=== PATIENT | male | born 1935 | race Caucasian/White ===

== ENCOUNTER 2017-01-15 00:52 | Inpatient (IN) | payer MEDICARE, OTHER ==
--- NOTE | 2017-01-15 01:11 | PDOC ---
History of Present Illness - General History Source: Patient, Family Exam Limitations: No Limitations - History of Present Illness Initial Comments: 01/15/17 02:13 81 y/o M with a PMHx of IDDM, HTN, HLD, prostate CA, stents presents to the ED with high BP tonight. The son took the patients BP 5 times, the highest being 200/95. Son gave the patient an extra dose of BP medication, but patients BP did not go down. On arrival, patient reports chest heaviness and hematuria. He states he has had hematuria for about 2 weeks but he was traveling so he ignored it. He also reports missing a couple doses of his Plavix the past two days because of travel. Patient reports left eye double vision. Denies dysuria, blood clots in urine. Denies SOB. Denies headache, dizziness. <Nena Stevens - Last Filed: 01/15/17 02:43> <Kristel Loazia - Last Filed: 01/15/17 04:00> - General Stated Complaint: BLOOD PRESSURE PROBLEM Time Seen by Provider: 01/15/17 01:10 Past History <Nena Stevens - Last Filed: 01/15/17 02:43> - Past Medical History Anemia: No Asthma: No Cancer: No Cardiac Disorders: No CVA: No COPD: No CHF: No Dementia: No Diabetes: Yes (IDDM) GI Disorders: Yes (DYSPHAGIA FOR 3 YEARS,CONSTIPATION,GERD) Disorders: No HTN: Yes Hypercholesterolemia: Yes Liver Disease: No Seizures: No Thyroid Disease: No - Surgical History Abdominal Surgery: No Appendectomy: No Cardiac Surgery: No Cholecystectomy: No Lung Surgery: No Neurologic Surgery: No Orthopedic Surgery: No - Suicide/Smoking/Psychosocial Hx Smoking History: Former smoker Have you smoked in the past 12 months: No Hx Alcohol Use: No Drug/Substance Use Hx: No Substance Use Type: None Hx Substance Use Treatment: No <Kristel Loaiza - Last Filed: 01/15/17 04:00> - Past Medical History Allergies/Adverse Reactions: Allergies Allergy/AdvReac Type Severity Reaction Status Date / Time No Known Drug Allergies Allergy Verified 01/15/17 01:38 Home Medications: Ambulatory Orders Gabapentin 100 mg PO BID 07/05/14 Sitagliptin Phosphate [Januvia] 100 mg PO DAILY 07/05/14 Insulin Lispro Protamin/Lispro [Humalog Mix 50-50 Vial] 0 unit SQ DAILY #0 03/22 Aspirin [ASA -] 81 mg PO DAILY 03/06/16 Carbidopa/Levodopa [Rytary ER 61.25 mg-245 mg Cap] 1 each PO DAILY 03/06/16 Clopidogrel Bisulfate [Plavix -] 75 mg PO DAILY 03/06/16 Docusate Sodium [Stool Softener] 50 mg PO TID 03/06/16 Ergocalciferol (Vitamin D2) [Vitamin D2] 2,000 unit PO DAILY 03/06/16 Esomeprazole Magnesium [Nexium 24Hr] 40 mg PO DAILY 03/06/16 Linaclotide [Linzess] 145 mcg PO DAILY 03/06/16 Lisinopril 5 mg PO DAILY 03/06/16 Methylcellulose [Fiber Therapy] 500 mg PO DAILY 03/06/16 Mirabegron [Myrbetriq] 50 mg PO DAILY 03/06/16 Rosuvastatin Calcium [Crestor] 5 mg PO DAILY 03/06/16 Review of Systems - Review of Systems Able to Perform ROS?: Yes Comments:: 01/15/17 02:13 GENERAL/CONSTITUTIONAL: No fever or chills. No weakness. HEAD, EYES, EARS, NOSE AND THROAT: (+) left eye blurry vision. No ear pain or discharge. No sore throat. CARDIOVASCULAR: (+) chest heaviness, high BP. No shortness of breath. RESPIRATORY: No cough, wheezing, or hemoptysis. GASTROINTESTINAL: No nausea, vomiting, diarrhea or constipation. GENITOURINARY: (+) hematuria. No dysuria, frequency. MUSCULOSKELETAL: No joint or muscle swelling or pain. No neck or back pain. SKIN: No rash NEUROLOGIC: No headache, vertigo, loss of consciousness, or change in strength/ sensation. ENDOCRINE: No increased thirst. No abnormal weight change. HEMATOLOGIC/LYMPHATIC: No anemia, easy bleeding, or history of blood clots. ALLERGIC/IMMUNOLOGIC: No hives or skin allergy. <Nena Stevens - Last Filed: 01/15/17 02:43> *Physical Exam - Vital Signs Last Vital Signs Temp Pulse Resp BP Pulse Ox 98.1 F 82 18 153/78 99 01/15/17 01:33 01/15/17 01:33 01/15/17 01:33 01/15/17 01:33 01/15/17 01:33 - Physical Exam Comments: 01/15/17 02:15 GENERAL: Awake, alert, and fully oriented, in no acute distress HEAD: No signs of trauma EYES: PERRLA, EOMI, sclera anicteric, conjunctiva clear ENT: Auricles normal inspection, hearing grossly normal, nares patent, oropharynx clear without exudates. Moist mucosa NECK: Normal ROM, supple, no lymphadenopathy, JVD, or masses LUNGS: Breath sounds equal, clear to auscultation bilaterally. No wheezes, and no crackles HEART: Regular rate and rhythm, normal S1 and S2, no murmurs, rubs or gallops ABDOMEN: Suprapubic tenderness, palpable bladder beneath umbilicus. normoactive bowel sounds. No guarding, no rebound. EXTREMITIES: Bilateral lower extremity edema. Normal range of motion. No clubbing or cyanosis. No cords, erythema, or tenderness NEUROLOGICAL: Cranial nerves II through XII grossly intact. Normal speech, normal gait SKIN: Warm, Dry, normal turgor, no rashes or lesions noted. <Nena Stevens - Last Filed: 01/15/17 02:43> Heart Score/ECG Review - ECG Intrepretation Comment:: 01/15/17 02:25 sinus at 76, anterior q waves that are age indeterminate and unchanged from prior, no acute st/t wave findings <Kristel Loaiza - Last Filed: 01/15/17 04:00> ED Treatment Course - LABORATORY CBC & Chemistry Diagram: 01/15/17 02:03 01/15/17 02:03 <Nena Stevens - Last Filed: 01/15/17 02:43> - LABORATORY CBC & Chemistry Diagram: 01/15/17 02:03 01/15/17 02:30 <Kristel Loaiza - Last Filed: 01/15/17 04:00> Medical Decision Making - Medical Decision Making 01/15/17 02:17 a/p: 81yo male with HTN at home, cp, hematuria -labs, ua, cxr, trop, ekg pt with htn at home, took extra dose of lisinopril hematuria with hx of prostate sx for prostate ca in past, 2 weeks hematuria chest pressure - hx of stents, not compliant w asa/plavix pt will most likely need to be admitted for further eval. 01/15/17 03:57 pt resting comfortably. discussed lab results with the patient. pt with CAD risk factors. Will need to stay for further eval of cp. pt willing to stay for further eval case discussed with Dr. Trinidad - accepts pt to service under obs. <Kristel Loaiza - Last Filed: 01/15/17 04:00> *DC/Admit/Observation/Transfer - Attestations Scribe Attestion: 01/15/17 02:16 Documentation prepared by Nena Stevens, acting as medical device engineer for Kristel Loaiza DO. <Nena Stevens - Last Filed: 01/15/17 02:43> - Discharge Dispostion Admit: Yes - Attestations Physician Attestion: 01/15/17 04:00 I, Dr. Kristel Loaiza DO, attest that this document has been prepared under my direction and personally reviewed by me in its entirety. I further attest, that it accurately reflects all work, treatment, procedures and medical decision -making performed by me. <Kristel Loaiza - Last Filed: 01/15/17 04:00> Diagnosis at time of Disposition: Chest pain, Hypertension, Hematuria, Diabetes - Discharge Dispostion Condition at time of disposition: Fair - Referrals Referrals: Samuel Moyer MD [Primary Care Provider] -
[2017-01-15 01:38] VITALS: BMI 30.3
[2017-01-15 02:15] LABS: EOSINOPHIL 5.2 % (0-4.5); MCHC 33.8 g/dl (32.0-35.9); MEAN CELL VOLUME 91.7 fl (80-96); MEAN PLT VOLUME 10.8 fl (7.5-11.1); NEUTROPHILS 55.7 % (42.8-82.8); PLATELET COUNT 229 K/MM3 (134-434); RDW 14.6 % (11.9-15.9); URINE APPEARANCE CLEAR; URINE BILIRUBIN NEGATIVE (NEGATIVE); URINE BLOOD 1+ (NEGATIVE); URINE COLOR YELLOW; URINE GLUCOSE (UA) 3+ (NEGATIVE); URINE KETONE NEGATIVE (NEGATIVE); URINE NITRITE NEGATIVE (NEGATIVE); URINE UROBILINOGEN NEGATIVE mg/dL (0.2-1.0); WHITE BLOOD COUNT 6.7 K/mm3 (4.0-10.0)
[2017-01-15 02:19] LABS: URINE PROTEIN 1+ (NEGATIVE)
[2017-01-15 02:21] LABS: URINE RBC <1 /hpf (0-3); URINE WBC 1 /hpf (3-5)
[2017-01-15 03:06] LABS: ACTIVATED PTT 32.2 SECONDS (26.9-34.4)
[2017-01-15 03:07] LABS: INR 1.27 (0.82-1.09)
[2017-01-15 03:12] LABS: ALBUMIN 2.7 g/dl (3.4-5.0); ANION GAP 9 (8-16); BILIRUBIN,TOTAL 1.3 mg/dL (0.2-1.0); CALCIUM 8.7 mg/dL (8.5-10.1); CO2 24 mmol/L (21-32); CREATININE 1.8 mg/dL (0.7-1.3); SGPT/ALT 42 U/L (12-78); TOT PROT 8.4 g/dl (6.4-8.2)
[2017-01-15 03:14] LABS: ALK PHOS 402 U/L (45-117); CPK 311 IU/L (39-308); TROPONIN I < 0.02 ng/ml (0.00-0.05)
[2017-01-15 03:25] LABS: SGOT/AST 105 U/L (15-37)
[2017-01-15 03:26] LABS: GLUCOSE,RANDOM 376 mg/dL (74-106)
[2017-01-15] MEDS ORDERED: LEVOFLOXACIN 750 MG IVPB 150 ML IVPB ONE ×2 (03:39→04:55)
[2017-01-15] MEDS ORDERED: ASPIRIN 81 MG CHEWABLE TABLETS PO ONE (03:41)
[2017-01-15] MEDS ORDERED: INSULIN REGULAR HUMAN 100 UNITS/ML *VIAL SQ ONE (03:57)
[2017-01-15] MEDS ORDERED: ASPIRIN 81 MG CHEWABLE TABLETS ONE ×2 (04:55→11:58)
[2017-01-15] MEDS ORDERED: INSULIN REGULAR HUMAN 100 UNITS/ML *VIAL ONE (04:55)
[2017-01-15] MEDS ORDERED: ONDANSETRON *ODT* 4 MG TABLET SL PRN (07:15)
[2017-01-15] MEDS ORDERED: DEXTROSE 5%-NORMAL SALINE 1,000 ML IV SCH (07:30)
[2017-01-15 09:02] LABS: CHOLESTEROL 253 mg/dL (50-200)
[2017-01-15 09:03] LABS: CPK 286 IU/L (39-308); TROPONIN I < 0.02 ng/ml (0.00-0.05)
[2017-01-15 09:25] LABS: URINE LEUK ESTERASE Negative (NEGATIVE)
[2017-01-15] MEDS ORDERED: DEXTROSE 5% IVPB ONE (10:00)
[2017-01-15] MEDS ORDERED: DIPYRIDAMOLE STRESS TEST IVPB ONE (10:00)
[2017-01-15] MEDS ORDERED: WATER IVPB ONE (10:00)
--- NOTE | 2017-01-15 10:12 | HP ---
Admitting History and Physical - Primary Care Physician PCP: Ko Seth - Admission Chief Complaint: HTN History of Present Illness: 81 y/o M with a PMHx of IDDM, HTN, HLD, prostate CA, stents presents to the ED with high BP tonight. The son took the patients BP 5 times, the highest being 200/95. Son gave the patient an extra dose of BP medication, but patients BP did not go down. On arrival, patient reports chest heaviness and hematuria. He states he has had hematuria for about 2 weeks but he was traveling so he ignored it. He also reports missing a couple doses of his Plavix the past two days because of travel. Patient reports left eye double vision. Denies dysuria, blood clots in urine. Denies SOB. Denies headache, dizziness. 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 Cardiovascular: Yes: CAD, HTN, Hyperlipdemia Gastrointestinal: Yes: Constipation Renal/: Yes: Other - Smoking History Smoking history: Former smoker Have you smoked in the past 12 months: No - Alcohol/Substance Use Hx Alcohol Use: No Home Medications - Allergies Allergies/Adverse Reactions: Allergies Allergy/AdvReac Type Severity Reaction Status Date / Time No Known Drug Allergies Allergy Verified 01/15/17 01:38 - Home Medications Home Medications: Ambulatory Orders Gabapentin 100 mg PO BID 07/05/14 Sitagliptin Phosphate [Januvia] 100 mg PO DAILY 07/05/14 Insulin Lispro Protamin/Lispro [Humalog Mix 50-50 Vial] 0 unit SQ DAILY #0 03/22 Aspirin [ASA -] 81 mg PO DAILY 03/06/16 Carbidopa/Levodopa [Rytary ER 61.25 mg-245 mg Cap] 1 each PO DAILY 03/06/16 Clopidogrel Bisulfate [Plavix -] 75 mg PO DAILY 03/06/16 Docusate Sodium [Stool Softener] 50 mg PO TID 03/06/16 Ergocalciferol (Vitamin D2) [Vitamin D2] 2,000 unit PO DAILY 03/06/16 Esomeprazole Magnesium [Nexium 24Hr] 40 mg PO DAILY 03/06/16 Linaclotide [Linzess] 145 mcg PO DAILY 03/06/16 Lisinopril 5 mg PO DAILY 03/06/16 Methylcellulose [Fiber Therapy] 500 mg PO DAILY 03/06/16 Mirabegron [Myrbetriq] 50 mg PO DAILY 03/06/16 Rosuvastatin Calcium [Crestor] 5 mg PO DAILY 03/06/16 Review of Systems - Review of Systems Constitutional: reports: No Symptoms Eyes: reports: No Symptoms HENT: reports: No Symptoms Neck: reports: No Symptoms Cardiovascular: reports: Chest Pain, Shortness of Breath Respiratory: reports: SOB Gastrointestinal: reports: No Symptoms Genitourinary: reports: No Symptoms Breasts: reports: No Symptoms Reported Musculoskeletal: reports: No Symptoms Integumentary: reports: No Symptoms Neurological: reports: Dizziness, Unsteady Gait, Weakness Endocrine: reports: No Symptoms Hematology/Lymphatic: reports: No Symptoms Psychiatric: reports: No Symptoms Pain Intensity: 0 Physical Examination Vital Signs: Vital Signs Temperature 98.1 F 01/15/17 01:33 Pulse Rate 82 01/15/17 01:33 Respiratory Rate 18 01/15/17 01:33 Blood Pressure 153/78 01/15/17 01:33 O2 Sat by Pulse Oximetry (%) 99 01/15/17 01:33 Constitutional: Yes: Well Nourished, No Distress, Calm Cardiovascular: Yes: Regular Rate and Rhythm Respiratory: Yes: Regular Gastrointestinal: Yes: Normal Bowel Sounds, Abdomen, Obese Musculoskeletal: Yes: Muscle Weakness Edema: No Peripheral Pulses WNL: Yes Neurological: Yes: Alert Psychiatric: Yes: Alert Imaging - Results Chest X-ray: Report Reviewed Cat Scan: Report Reviewed Ultrasound: Report Reviewed Problem List - Problems (1) JOSSELYN (acute kidney injury) Assessment/Plan: -renal consult -IV fluids -avoid nephrotoxic drugs -drugs to be dosed according to CrCl -decrease Januvia to 50 mg po daily Code(s): N17.9 - ACUTE KIDNEY FAILURE, UNSPECIFIED (2) Chest pain Assessment/Plan: -cardiology consult -EKG -stress test positive for ischemia -echo -telemetry Code(s): R07.9 - CHEST PAIN, UNSPECIFIED (3) Elevated liver enzymes Assessment/Plan: -patient aymptomatic -seen by GI consult -Crestor changed to Q48h -Zetia 10 mg po daily -Lovaza 2g BID -U/S abdomen hepatic steatosis -monitor labs in AM Code(s): R74.8 - ABNORMAL LEVELS OF OTHER SERUM ENZYMES (4) Hematuria Assessment/Plan: -Urology consult -UA/UC Code(s): R31.9 - HEMATURIA, UNSPECIFIED (5) Hypertension Assessment/Plan: -managed by cardiology -better controlled -on Fernando and B-gladys Code(s): I10 - ESSENTIAL (PRIMARY) HYPERTENSION (6) CAD (coronary artery disease) Assessment/Plan: -on asa/plavix -statin -BB/fernando Code(s): I25.10 - ATHSCL HEART DISEASE OF [place] CORONARY ARTERY W/O ANG PCTRS (7) Diabetes mellitus, insulin dependent (IDDM), uncontrolled Assessment/Plan: -uncontrolled with HgA1c at 9.6 -endocrinology consult -BGM AC HS -Insulin sliding scale -Januvia decreased to 50 mg because of creatinine clearance Code(s): E10.65 - TYPE 1 DIABETES MELLITUS WITH HYPERGLYCEMIA (8) Parkinson disease Assessment/Plan: -Chronic -on Rytary- may use his own medication -to be seen by Neurology -unsteady gait -Physical therapy Code(s): G20 - PARKINSON'S DISEASE Assessment/Plan see problem list
[2017-01-15] MEDS ORDERED: LISINOPRIL 5 MG TABLET (FP) ONE (11:58)
[2017-01-15] MEDS ORDERED: PANTOPRAZOLE 40 MG TABLET (FP) ONE (11:58)
[2017-01-15] MEDS ORDERED: CLOPIDOGREL BISULFATE 75 MG TABLET (FP) ONE (11:59)
[2017-01-15] MEDS: PANTOPRAZOLE 40 MG TABLET (FP) PO SCH (12:07)
[2017-01-15] MEDS: ASPIRIN COATED 81 MG TABLET.EC PO SCH (12:07)
[2017-01-15] MEDS: LISINOPRIL 5 MG TABLET (FP) PO SCH (12:07)
[2017-01-15] MEDS: CLOPIDOGREL BISULFATE 75 MG TABLET (FP) PO SCH (12:07)
[2017-01-15] MEDS: INSULIN SLIDING SCALE (NOVOLOG) 1 VIAL SQ SCH ×3 (12:13→22:14)
--- NOTE | 2017-01-15 14:53 | CON.CARD ---
Consult Consult Specialty:: Cardiology Referred by:: Amos Reason for Consultation:: chest pain - History of Present Illness Chief Complaint: Chest pain History of Present Illness: 81 y/o M with a PMHx of IDDM, HTN, HLD, prostate CA, CAD with h/o stents in 2005 who presents to the ED with high BP tonight, decreased in vision in left eye and chest pain. Patient reports he was home when felt like he could not see out of his left eye and called his son to come over. Also noted to have left chest pressure which was non-radiating. No sob or palpitations. Son reports bp was persistently high at home and gave him an extra dose of lisinopril and started to improve. No chest pain at this time. +hematuria which is of concern to the patient. - History Source History Provided By: Patient, Family Member, Medical Record - Past Medical History Cardio/Vascular: Yes: HTN Renal/: Yes: Other - Alcohol/Substance Use Hx Alcohol Use: No - Smoking History Smoking history: Former smoker Have you smoked in the past 12 months: No Home Medications - Allergies Allergies/Adverse Reactions: Allergies Allergy/AdvReac Type Severity Reaction Status Date / Time No Known Drug Allergies Allergy Verified 01/15/17 01:38 - Home Medications Home Medications: Ambulatory Orders Gabapentin 100 mg PO BID 07/05/14 Sitagliptin Phosphate [Januvia] 100 mg PO DAILY 07/05/14 Insulin Lispro Protamin/Lispro [Humalog Mix 50-50 Vial] 0 unit SQ DAILY #0 03/22 Aspirin [ASA -] 81 mg PO DAILY 03/06/16 Carbidopa/Levodopa [Rytary ER 61.25 mg-245 mg Cap] 1 each PO DAILY 03/06/16 Clopidogrel Bisulfate [Plavix -] 75 mg PO DAILY 03/06/16 Docusate Sodium [Stool Softener] 50 mg PO TID 03/06/16 Ergocalciferol (Vitamin D2) [Vitamin D2] 2,000 unit PO DAILY 03/06/16 Esomeprazole Magnesium [Nexium 24Hr] 40 mg PO DAILY 03/06/16 Linaclotide [Linzess] 145 mcg PO DAILY 03/06/16 Lisinopril 5 mg PO DAILY 03/06/16 Methylcellulose [Fiber Therapy] 500 mg PO DAILY 03/06/16 Mirabegron [Myrbetriq] 50 mg PO DAILY 03/06/16 Rosuvastatin Calcium [Crestor] 5 mg PO DAILY 03/06/16 Vital Signs: Vital Signs Temperature 98.1 F 01/15/17 01:33 Pulse Rate 85 01/15/17 13:34 Respiratory Rate 18 01/15/17 12:08 Blood Pressure 152/76 01/15/17 13:34 O2 Sat by Pulse Oximetry (%) 97 01/15/17 12:08 Constitutional: Yes: No Distress Neck: Yes: Supple Respiratory: Yes: CTA Bilaterally Gastrointestinal: Yes: Normal Bowel Sounds, Soft Cardiovascular: Yes: Regular Rate and Rhythm JVD: No Carotid Bruit: No Heart Sounds: Yes: S1, S2 Murmur: No: Systolic Murmur Edema: LLE: Trace, RLE: Trace - Other Data Labs, Other Data: INR, PTT INR 1.27 (0.82-1.09) H 01/15/17 02:30 Troponin, BNP 01/15/17 08:12 Troponin I < 0.02 Troponin, BNP 01/15/17 08:12 Troponin I < 0.02 Imaging - Results Chest X-ray: Report Reviewed EKG: Image Reviewed Problem List - Problems (1) Chest pain Code(s): R07.9 - CHEST PAIN, UNSPECIFIED (2) CAD (coronary artery disease) Code(s): I25.10 - ATHSCL HEART DISEASE OF [place] CORONARY ARTERY W/O ANG PCTRS Assessment/Plan 81 y/o M with a PMHx of IDDM, HTN, HLD, prostate CA, CAD with h/o stents in 2005 who presents to the ED with high BP tonight, decreased in vision in left eye and chest pain. Patient reports he was home when felt like he could not see out of his left eye and called his son to come over. Also noted to have left chest pressure which was non-radiating. No sob or palpitations. Son reports bp was persistently high at home and gave him an extra dose of lisinopril and started to improve. No chest pain at this time. +hematuria which is of concern to the patient. 1) Chest pain/CAD -No acute EKG changes and troponins negative at this time Admitted to telemetry Trend CE's -On home aspirin/plavix Trend lfts and if no contraindications and not uptrending than restart statin -Plan for echocardiogram Patient went for Nuclear Stress Test today and will f/u results 2) HTN -BP seems to have improved on lisinopril -Given known CAD would benefit from beta gladys if no contraindication. If no contraindication and if HR allows than start toprol xl. If patient is unable to tolerate BBlocker and still needs an additional agent than would start calcium channel gladys Check orthostatics given h/o parkinson's 3) Neuro -CT head no acute m/s/b BP control F/u with primary team whether or not any further neuro work up indicated
[2017-01-15] MEDS: GABAPENTIN 100 MG CAPSULE (FP) PO SCH ×2 (15:30→22:14)
--- NOTE | 2017-01-15 16:17 | CONSULT ---
Consult Consult Specialty:: Nephrology Reason for Consultation:: JOSSELYN - History of Present Illness Chief Complaint: chest pressure History of Present Illness: Pt is an 81 year old male with pmhx of DM, HTN, chol and prostate cancer who presents to the ER with elevated blood pressure and chest discomfort. He was found to have elevated creatinine and I was called to evaluate him. He currently denies chest pain. His blood pressure is improving. He denies history of CKD. He also complains of hematuria for the last few weeks. He denies nsaid use. He occasionally gets lower extremity edema. - History Source History Provided By: Patient, Medical Record - Past Medical History Cardio/Vascular: Yes: HTN Renal/: Yes: Hematuria Endocrine: Yes: Diabetes Mellitus - Alcohol/Substance Use Hx Alcohol Use: No - Smoking History Smoking history: Former smoker Have you smoked in the past 12 months: No Home Medications - Allergies Allergies/Adverse Reactions: Allergies Allergy/AdvReac Type Severity Reaction Status Date / Time No Known Drug Allergies Allergy Verified 01/15/17 01:38 - Home Medications Home Medications: Ambulatory Orders Gabapentin 100 mg PO BID 07/05/14 Sitagliptin Phosphate [Januvia] 100 mg PO DAILY 07/05/14 Insulin Lispro Protamin/Lispro [Humalog Mix 50-50 Vial] 0 unit SQ DAILY #0 03/22 Aspirin [ASA -] 81 mg PO DAILY 03/06/16 Carbidopa/Levodopa [Rytary ER 61.25 mg-245 mg Cap] 1 each PO DAILY 03/06/16 Clopidogrel Bisulfate [Plavix -] 75 mg PO DAILY 03/06/16 Docusate Sodium [Stool Softener] 50 mg PO TID 03/06/16 Ergocalciferol (Vitamin D2) [Vitamin D2] 2,000 unit PO DAILY 03/06/16 Esomeprazole Magnesium [Nexium 24Hr] 40 mg PO DAILY 03/06/16 Linaclotide [Linzess] 145 mcg PO DAILY 03/06/16 Lisinopril 5 mg PO DAILY 03/06/16 Methylcellulose [Fiber Therapy] 500 mg PO DAILY 03/06/16 Mirabegron [Myrbetriq] 50 mg PO DAILY 03/06/16 Rosuvastatin Calcium [Crestor] 5 mg PO DAILY 03/06/16 Family Disease History - Family Disease History Family History: Denies Review of Systems - Review of Systems Constitutional: reports: No Symptoms Eyes: reports: No Symptoms HENT: reports: No Symptoms Neck: reports: No Symptoms Cardiovascular: reports: Chest Pain Respiratory: denies: SOB Gastrointestinal: reports: No Symptoms Genitourinary: reports: Hematuria Musculoskeletal: reports: No Symptoms Integumentary: reports: No Symptoms Neurological: reports: No Symptoms Endocrine: reports: No Symptoms Hematology/Lymphatic: reports: No Symptoms Psychiatric: reports: No Symptoms Physical Exam Vital Signs: Vital Signs Temperature 98.2 F 01/15/17 15:12 Pulse Rate 82 01/15/17 15:12 Respiratory Rate 14 01/15/17 15:12 Blood Pressure 152/72 01/15/17 15:12 O2 Sat by Pulse Oximetry (%) 97 01/15/17 15:12 Constitutional: Yes: Calm Eyes: Yes: Conjunctiva Clear HENT: Yes: Atraumatic Cardiovascular: Yes: S1, S2 Respiratory: Yes: CTA Bilaterally Gastrointestinal: Yes: Soft Renal/: Yes: WNL Musculoskeletal: Yes: WNL Edema: Yes Edema: LLE: Trace, RLE: Trace Neurological: Yes: Oriented Psychiatric: Yes: Oriented Labs: Selected Entries 01/15/17 01/15/17 01/15/17 12:08 13:34 15:12 Blood Pressure 164/92 152/76 152/72 Laboratory Tests 01/15/17 01/15/17 01/15/17 02:03 02:03 02:30 WBC 6.7 D Hgb 14.4 D Sodium 136 Potassium 4.6 Chloride 103 Carbon Dioxide 24 Anion Gap 9 BUN 30 H D Creatinine 1.8 H D Random Glucose 376 H* Urine Color Yellow Urine Appearance Clear Urine pH 5.0 Ur Specific [place] 1.020 Urine Protein 1+ H Urine Glucose (UA) 3+ H Urine Ketones Negative Urine Blood 1+ H Urine Nitrite Negative Urine Bilirubin Negative Urine Urobilinogen Negative Ur Leukocyte Esterase Negative Urine RBC <1 Urine WBC 1 Imaging - Results Chest X-ray: Report Reviewed Cat Scan: Report Reviewed Problem List - Problems (1) Chest pain Code(s): R07.9 - CHEST PAIN, UNSPECIFIED (2) Diabetes Code(s): E11.9 - TYPE 2 DIABETES MELLITUS WITHOUT COMPLICATIONS (3) Hematuria Code(s): R31.9 - HEMATURIA, UNSPECIFIED (4) Hypertension Code(s): I10 - ESSENTIAL (PRIMARY) HYPERTENSION (5) CAD (coronary artery disease) Code(s): I25.10 - ATHSCL HEART DISEASE OF [place] CORONARY ARTERY W/O ANG PCTRS (6) Diabetes mellitus, insulin dependent (IDDM), uncontrolled Code(s): E10.65 - TYPE 1 DIABETES MELLITUS WITH HYPERGLYCEMIA (7) JOSSELYN (acute kidney injury) Code(s): N17.9 - ACUTE KIDNEY FAILURE, UNSPECIFIED Assessment/Plan Current Medications Generic Name Dose Route Start Last Admin Trade Name Freq PRN Reason Stop Dose Admin Aspirin 81 mg 01/15/17 10:00 01/15/17 12:07 Ecotrin - PO 81 mg DAILY JALIL Administration Clopidogrel Bisulfate 75 mg 01/15/17 10:00 01/15/17 12:07 Plavix - PO 75 mg DAILY JALIL Administration Gabapentin 100 mg 01/15/17 14:00 Neurontin - PO TID JALIL Dextrose/Sodium Chloride 1,000 mls @ 75 mls/hr 01/15/17 07:30 01/15/17 07:00 D5-Ns - IV 75 mls/hr ASDIR JALIL Administration Insulin Aspart 1 vial 01/15/17 11:00 01/15/17 12:13 Novolog Vial Sliding Scale - SQ 8 units ACHS JALIL Administration Protocol Lisinopril 5 mg 01/15/17 10:00 01/15/17 12:07 Prinivil PO 5 mg DAILY JALIL Administration Ondansetron HCl 4 mg 01/15/17 07:15 Zofran Odt - SL Q6H PRN NAUSEA AND/OR VOMITING Pantoprazole Sodium 40 mg 01/15/17 10:00 01/15/17 12:07 Protonix - PO 40 mg DAILY JALIL Administration Rosuvastatin Calcium 5 mg 01/15/17 22:00 Crestor - PO HS JALIL Sitagliptin Phosphate 100 mg 01/16/17 07:00 Januvia - PO DAILY@0700 JALIL Impression 1. JOSSELYN 2. HTN 3. chest pain 4. DM 5. hematuria Plan - change fluids to 1/2 and decrease rate - repeat bmp - check ua - abd ultrasound reviewed - check bladder ultrasound - urology eval for hematuria - will need to obtain outpt labs - will follow Dr Beckford
[2017-01-15] MEDS ORDERED: SODIUM CHLORIDE 0.45% 1,000 ML IV SCH (16:30)
[2017-01-15] MEDS ORDERED: METOPROLOL SUCCINATE 25 MG TAB.SR.24H (FP) PO SCH (18:15)
--- NOTE | 2017-01-15 19:01 | CON.GI ---
Consult Consult Specialty:: gastroenterology Referred by:: Dr Trinidad - History of Present Illness History of Present Illness: 81 y/o M with a PMHx of IDDM, HTN, HLD, prostate CA, CAD with h/o stents in 2005 who presents to the ED with high BP tonight, decreased in vision in left eye and chest pain. Patient reports he was home when felt like he could not see out of his left eye and called his son to come over. Also noted to have left chest pressure which was non-radiating. No sob or palpitations. Son reports bp was persistently high at home and gave him an extra dose of lisinopril and started to improve. The patient is on statins as an outpatient. He was asked to be seen because of elevated liver enzymes. He denies alcohol use. Patient triglycerides and cholesterol are elevated. - Past Medical History Cardio/Vascular: Yes: HTN Renal/: Yes: Hematuria Endocrine: Yes: Diabetes Mellitus - Alcohol/Substance Use Hx Alcohol Use: No - Smoking History Smoking history: Former smoker Have you smoked in the past 12 months: No Home Medications - Allergies Allergies/Adverse Reactions: Allergies Allergy/AdvReac Type Severity Reaction Status Date / Time No Known Drug Allergies Allergy Verified 01/15/17 01:38 - Home Medications Home Medications: Ambulatory Orders Gabapentin 100 mg PO BID 07/05/14 Sitagliptin Phosphate [Januvia] 100 mg PO DAILY 07/05/14 Insulin Lispro Protamin/Lispro [Humalog Mix 50-50 Vial] 0 unit SQ DAILY #0 03/22 Aspirin [ASA -] 81 mg PO DAILY 03/06/16 Carbidopa/Levodopa [Rytary ER 61.25 mg-245 mg Cap] 1 each PO DAILY 03/06/16 Clopidogrel Bisulfate [Plavix -] 75 mg PO DAILY 03/06/16 Docusate Sodium [Stool Softener] 50 mg PO TID 03/06/16 Ergocalciferol (Vitamin D2) [Vitamin D2] 2,000 unit PO DAILY 03/06/16 Esomeprazole Magnesium [Nexium 24Hr] 40 mg PO DAILY 03/06/16 Linaclotide [Linzess] 145 mcg PO DAILY 03/06/16 Lisinopril 5 mg PO DAILY 03/06/16 Methylcellulose [Fiber Therapy] 500 mg PO DAILY 03/06/16 Mirabegron [Myrbetriq] 50 mg PO DAILY 03/06/16 Rosuvastatin Calcium [Crestor] 5 mg PO DAILY 03/06/16 Review of Systems - Review of Systems Constitutional: denies: No Symptoms, Chills, Diaphoresis, Fever, Lethargy, Loss of Appetite, Malaise, Night Sweats, Unintentional Wgt. Loss, Weakness, Other HENT: denies: No Symptoms, Difficult Swallowing, Ear Discharge, Ear Pain, Epistaxis, Gingival Bleeding, Hearing Loss, Mouth Swelling, Nasal Congestion, Ocular Prosthesis, Throat Pain, Toothache, Ringing in Ears, Other Cardiovascular: reports: Chest Pain Gastrointestinal: denies: No Symptoms, Abdominal Pain, Bloating, Constipation, Diarrhea, Dysphagia, Indigestion, Melena, Nausea, Rectal Bleeding, Vomiting, Vomiting Blood, Other Physical Exam-GI Vital Signs: Vital Signs Temperature 98.2 F 01/15/17 15:12 Pulse Rate 82 01/15/17 15:12 Respiratory Rate 14 01/15/17 15:12 Blood Pressure 152/72 01/15/17 15:12 O2 Sat by Pulse Oximetry (%) 97 01/15/17 15:12 Constitutional: Yes: Obese Eyes: Yes: Conjunctiva Clear HENT: Yes: Atraumatic Neck: Yes: Trachea Midline, Thyromegaly Respiratory: Yes: CTA Bilaterally ...Palpate: Yes: Soft. No: Firm/Rigid, Guarding, Hepatomegaly, Mass, Pulsatile Mass, Tenderness Labs: INR, PTT INR 1.27 (0.82-1.09) H 01/15/17 02:30 CBCD WBC 6.7 K/mm3 (4.0-10.0) D 01/15/17 02:03 RBC 4.64 M/mm3 (4.00-5.60) 01/15/17 02:03 Hgb 14.4 GM/dL (11.7-16.9) D 01/15/17 02:03 Hct 42.5 % (35.4-49) 01/15/17 02:03 MCV 91.7 fl (80-96) 01/15/17 02:03 MCHC 33.8 g/dl (32.0-35.9) 01/15/17 02:03 RDW 14.6 % (11.9-15.9) D 01/15/17 02:03 Plt Count 229 K/MM3 (134-434) D 01/15/17 02:03 MPV 10.8 fl (7.5-11.1) D 01/15/17 02:03 CMP Sodium 136 mmol/L (136-145) 01/15/17 02:30 Potassium 4.6 mmol/L (3.5-5.1) 01/15/17 02:30 Chloride 103 mmol/L (98-107) 01/15/17 02:30 Carbon Dioxide 24 mmol/L (21-32) 01/15/17 02:30 Anion Gap 9 (8-16) 01/15/17 02:30 BUN 30 mg/dL (7-18) H D 01/15/17 02:30 Creatinine 1.8 mg/dL (0.7-1.3) H D 01/15/17 02:30 Creat Clearance w eGFR 36.21 (>60) 01/15/17 02:30 Calcium 8.7 mg/dL (8.5-10.1) 01/15/17 02:30 Total Bilirubin 1.3 mg/dL (0.2-1.0) H D 01/15/17 02:30 AST 105 U/L (15-37) H D 01/15/17 02:30 ALT 42 U/L (12-78) D 01/15/17 02:30 Alkaline Phosphatase 402 U/L (45-117) H D 01/15/17 02:30 Total Protein 8.4 g/dl (6.4-8.2) H 01/15/17 02:30 Albumin 2.7 g/dl (3.4-5.0) L 01/15/17 02:30 Problem List - Problems (1) Elevated liver enzymes Assessment/Plan: r/o secondary to drug toxicity R> consider to decrese Crestor to every other day consider to start Zetia 10mg daily Lovaza 2 grams daily abdominal ultrasound hepatitis profile Code(s): R74.8 - ABNORMAL LEVELS OF OTHER SERUM ENZYMES
[2017-01-15 20:45] LABS: URINE APPEARANCE CLEAR; URINE BILIRUBIN NEGATIVE (NEGATIVE); URINE BLOOD NEGATIVE (NEGATIVE); URINE COLOR YELLOW; URINE GLUCOSE (UA) 3+ (NEGATIVE); URINE KETONE NEGATIVE (NEGATIVE); URINE NITRITE NEGATIVE (NEGATIVE); URINE PROTEIN NEGATIVE (NEGATIVE); URINE UROBILINOGEN NEGATIVE mg/dL (0.2-1.0)
[2017-01-15] MEDS ORDERED: MAGNESIUM HYDROX 2400MG/30ML ORAL SUSPENSION 30 ML CUP PO PRN (20:47)
[2017-01-15 20:59] LABS: URINE CREATININE 80.9 mg/dL (20-370)
[2017-01-15] MEDS ORDERED: ROSUVASTATIN CA 20 MG TABLET (FP) PO SCH ×2 (21:00→22:00)
[2017-01-15] MEDS ORDERED: ROSUVASTATIN CA 5 MG TABLET (FP) PO SCH (22:00)
--- NOTE | 2017-01-15 22:12 | EKG ---
Test Reason : Blood Pressure : / mmHG Vent. Rate : 076 BPM Atrial Rate : 076 BPM P-R Int : 186 ms QRS Dur : 092 ms QT Int : 410 ms P-R-T Axes : 034 -09 042 degrees QTc Int : 461 ms NORMAL SINUS RHYTHM POSSIBLE ANTERIOR INFARCT , AGE UNDETERMINED ABNORMAL ECG WHEN COMPARED WITH ECG OF 25-JAN-2007 09:33, NO SIGNIFICANT CHANGE WAS FOUND CLINICAL CORRELATION IS RECOMMENDED Confirmed by CHUN CASTILLO MD ([id number]) on 01/15/2017 10:11:47 PM Referred By: Confirmed By:CHUN CASTILLO MD
[2017-01-15] MEDS: OMEGA-3 ACID ETHYL ESTERS (FATTY-ACIDS) 1 GM CAPSULE (FP) PO SCH (22:14)
[2017-01-15] MEDS: DOCUSATE SODIUM 100 MG CAPSULE (FP) PO SCH (22:14)
[2017-01-15] MEDS ORDERED: ENOXAPARIN NA (PORCINE) 100 MG/1 ML DISP.SYRIN SQ SCH (22:30)
[2017-01-16] MEDS ORDERED: INSULIN (NOVOLOG) ASPART 100 UNITS/ML 10ML VIAL ONE (06:01)
[2017-01-16] MEDS: DOCUSATE SODIUM 100 MG CAPSULE (FP) PO SCH ×3 (06:04→22:33)
[2017-01-16] MEDS: INSULIN SLIDING SCALE (NOVOLOG) 1 VIAL SQ SCH ×4 (06:04→22:33)
[2017-01-16] MEDS: GABAPENTIN 100 MG CAPSULE (FP) PO SCH ×3 (06:04→22:33)
[2017-01-16 06:37] LABS: BASOPHIL 1.1 % (0-2.0); EOSINOPHIL 6.5 % (0-4.5); MCH 30.3 pg (25.7-33.7); MCHC 32.9 g/dl (32.0-35.9); MEAN CELL VOLUME 92.1 fl (80-96); MEAN PLT VOLUME 9.6 fl (7.5-11.1); NEUTROPHILS 53.2 % (42.8-82.8); PLATELET COUNT 186 K/MM3 (134-434); RDW 13.7 % (11.9-15.9); WHITE BLOOD COUNT 5.8 K/mm3 (4.0-10.0)
[2017-01-16] MEDS ORDERED: INSULIN (NOVOLOG MIX 70/30) 100 UNITS/ML MDV SQ ONE (06:41)
[2017-01-16] MEDS ORDERED: INSULIN (NOVOLOG MIX 70/30) 100 UNITS/ML MDV SQ SCH ×2 (07:00→08:10)
[2017-01-16] MEDS ORDERED: sitaGLIPtin PHOSPHATE 100 MG TABLET (FP) PO SCH (07:00)
[2017-01-16 07:34] LABS: ALBUMIN 2.5 g/dl (3.4-5.0)
[2017-01-16 07:40] LABS: ALK PHOS 328 U/L (45-117); ANION GAP 10 (8-16); BILIRUBIN,TOTAL 1.4 mg/dL (0.2-1.0); CALCIUM 8.8 mg/dL (8.5-10.1); CO2 24 mmol/L (21-32); CREATININE 1.6 mg/dL (0.7-1.3); GLUCOSE,RANDOM 290 mg/dL (74-106); SGOT/AST 81 U/L (15-37); SGPT/ALT 85 U/L (12-78); TOT PROT 7.4 g/dl (6.4-8.2)
--- NOTE | 2017-01-16 08:18 | HP ---
Admitting History and Physical - Admission History of Present Illness: no cp this am - Past Medical History [employer]: Yes: Parkinson's Cardiovascular: Yes: CAD, HTN, Hyperlipdemia Gastrointestinal: Yes: Constipation Renal/: Yes: Other Endocrine: Yes: Diabetes Mellitus - Smoking History Smoking history: Former smoker Have you smoked in the past 12 months: No - Alcohol/Substance Use Hx Alcohol Use: No Home Medications - Allergies Allergies/Adverse Reactions: Allergies Allergy/AdvReac Type Severity Reaction Status Date / Time No Known Drug Allergies Allergy Verified 01/15/17 01:38 - Home Medications Home Medications: Ambulatory Orders Gabapentin 100 mg PO BID 07/05/14 Sitagliptin Phosphate [Januvia] 100 mg PO DAILY 07/05/14 Insulin Lispro Protamin/Lispro [Humalog Mix 50-50 Vial] 0 unit SQ DAILY #0 03/22 Aspirin [ASA -] 81 mg PO DAILY 03/06/16 Carbidopa/Levodopa [Rytary ER 61.25 mg-245 mg Cap] 1 each PO DAILY 03/06/16 Clopidogrel Bisulfate [Plavix -] 75 mg PO DAILY 03/06/16 Docusate Sodium [Stool Softener] 50 mg PO TID 03/06/16 Ergocalciferol (Vitamin D2) [Vitamin D2] 2,000 unit PO DAILY 03/06/16 Esomeprazole Magnesium [Nexium 24Hr] 40 mg PO DAILY 03/06/16 Linaclotide [Linzess] 145 mcg PO DAILY 03/06/16 Lisinopril 5 mg PO DAILY 03/06/16 Methylcellulose [Fiber Therapy] 500 mg PO DAILY 03/06/16 Mirabegron [Myrbetriq] 50 mg PO DAILY 03/06/16 Rosuvastatin Calcium [Crestor] 5 mg PO DAILY 03/06/16 Physical Examination Vital Signs: Vital Signs Temperature 98.2 F 01/16/17 05:00 Pulse Rate 67 01/16/17 05:00 Respiratory Rate 16 01/16/17 05:00 Blood Pressure 137/71 01/16/17 05:00 O2 Sat by Pulse Oximetry (%) 96 01/16/17 05:00 Labs: CBC, BMP 01/16/17 06:05 01/16/17 06:05 Assessment/Plan - Problems (1) JOSSELYN (acute kidney injury) Assessment/Plan: -renal consult -IV fluids -avoid nephrotoxic drugs -drugs to be dosed according to CrCl -decrease Januvia to 50 mg po daily Code(s): N17.9 - ACUTE KIDNEY FAILURE, UNSPECIFIED (2) Chest pain Assessment/Plan: -cardiology consult--f/u -EKG -stress test positive for ischemia--will discuss cath with cardio -echo -telemetry Code(s): R07.9 - CHEST PAIN, UNSPECIFIED (3) Elevated liver enzymes Assessment/Plan: -patient aymptomatic -seen by GI consult -Crestor changed to Q48h -Zetia 10 mg po daily -Lovaza 2g BID -U/S abdomen hepatic steatosis--MRCP and CA19-9 -monitor labs in AM Code(s): R74.8 - ABNORMAL LEVELS OF OTHER SERUM ENZYMES (4) Hematuria Assessment/Plan: -Urology consult -UA/UC Code(s): R31.9 - HEMATURIA, UNSPECIFIED (5) Hypertension Assessment/Plan: -managed by cardiology -better controlled -on Fernando and B-gladys Code(s): I10 - ESSENTIAL (PRIMARY) HYPERTENSION (6) CAD (coronary artery disease) Assessment/Plan: -on asa/plavix -statin -BB/fernando Code(s): I25.10 - ATHSCL HEART DISEASE OF [place] CORONARY ARTERY W/O ANG PCTRS (7) Diabetes mellitus, insulin dependent (IDDM), uncontrolled Assessment/Plan: -uncontrolled with HgA1c at 9.6 -[facility] -novolog 70/30 increased -Insulin sliding scale-- -Januvia decreased to 50 mg because of creatinine clearance Code(s): E10.65 - TYPE 1 DIABETES MELLITUS WITH HYPERGLYCEMIA (8) Parkinson disease Assessment/Plan: -Chronic -on Rytary- may use his own medication -to be seen by Neurology -unsteady gait -Physical therapy Code(s): G20 - PARKINSON'S DISEASE
[2017-01-16 09:13] LABS: URINE LEUK ESTERASE Negative (NEGATIVE)
[2017-01-16] MEDS ORDERED: RYTARY PO SCH (10:00)
[2017-01-16] MEDS: ASPIRIN COATED 81 MG TABLET.EC PO SCH (10:11)
[2017-01-16] MEDS: OMEGA-3 ACID ETHYL ESTERS (FATTY-ACIDS) 1 GM CAPSULE (FP) PO SCH ×2 (10:11→22:33)
[2017-01-16] MEDS: CLOPIDOGREL BISULFATE 75 MG TABLET (FP) PO SCH (10:11)
[2017-01-16] MEDS: PANTOPRAZOLE 40 MG TABLET (FP) PO SCH (10:11)
[2017-01-16] MEDS: sitaGLIPtin PHOSPHATE 50 MG TABLET PO SCH (10:11)
[2017-01-16] MEDS: LISINOPRIL 5 MG TABLET (FP) PO SCH (10:11)
[2017-01-16] MEDS: EZETIMIBE 10 MG TABLET (FP) PO SCH (10:12)
[2017-01-16] MEDS: METOPROLOL SUCCINATE 25 MG TAB.SR.24H (FP) PO SCH (10:12)
--- NOTE | 2017-01-16 13:20 | PN ---
Progress Note, Physician History of Present Illness: Pt seen and examined at bedside. He is awake and alert. He denies shortness of breath. - Current Medication List Current Medications: Active Medications Aspirin (Ecotrin -) 81 mg PO DAILY [facility] Last Admin: 01/16/17 10:11 Dose: 81 mg Clopidogrel Bisulfate (Plavix -) 75 mg PO DAILY [facility] Last Admin: 01/16/17 10:11 Dose: 75 mg Docusate Sodium (Colace -) 100 mg PO TID [facility] Last Admin: 01/16/17 06:04 Dose: 100 mg Ezetimibe (Zetia -) 10 mg PO DAILY [facility] Last Admin: 01/16/17 10:12 Dose: 10 mg Gabapentin (Neurontin -) 100 mg PO TID [facility] Last Admin: 01/16/17 06:04 Dose: 100 mg Sodium Chloride (1/2 Normal Saline) 1,000 mls @ 35 mls/hr IV ASDIR [facility] Last Admin: 01/15/17 17:30 Dose: 35 mls/hr Insulin Aspart (Novolog Vial Sliding Scale -) 1 vial SQ ACHS [facility] PRN Reason: Protocol Last Admin: 01/16/17 12:21 Dose: 6 units Insulin Aspart (Novolog Mix 70/30 Vial) 25 units SQ BIDAC [facility] Lisinopril (Prinivil) 5 mg PO DAILY [facility] Last Admin: 01/16/17 10:11 Dose: 5 mg Magnesium Hydroxide (Milk Of Magnesia -) 30 ml PO DAILY PRN PRN Reason: CONSTIPATION Metoprolol Succinate (Toprol Xl -) 25 mg PO DAILY [facility] Last Admin: 01/16/17 10:12 Dose: 25 mg Rytary 61.25/245mg (Caps) 1 each PO DAILY [facility] [id number] Ethyl Esters (Lovaza -) 2 gm PO BID [facility] Last Admin: 01/16/17 10:11 Dose: 2 gm Ondansetron HCl (Zofran Odt -) 4 mg SL Q6H PRN PRN Reason: NAUSEA AND/OR VOMITING Pantoprazole Sodium (Protonix -) 40 mg PO DAILY [facility] Last Admin: 01/16/17 10:11 Dose: 40 mg Rosuvastatin Calcium (Crestor -) 20 mg PO Q48H [facility] Sitagliptin Phosphate (Januvia -) 50 mg PO DAILY@0700 [facility] Last Admin: 01/16/17 10:11 Dose: 50 mg - Objective Vital Signs: Vital Signs Temperature 98.2 F 01/16/17 09:00 Pulse Rate 66 01/16/17 09:00 Respiratory Rate 14 01/16/17 11:23 Blood Pressure 142/82 01/16/17 09:00 O2 Sat by Pulse Oximetry (%) 96 01/16/17 11:23 Constitutional: Yes: Calm Eyes: Yes: Conjunctiva Clear HENT: Yes: Atraumatic Neck: Yes: Supple Cardiovascular: Yes: S1, S2 Respiratory: Yes: CTA Bilaterally Gastrointestinal: Yes: Normal Bowel Sounds, Soft Genitourinary: Yes: WNL Musculoskeletal: Yes: WNL Edema: No Neurological: Yes: Oriented Psychiatric: Yes: Oriented Labs: CBC, BMP 01/16/17 06:05 01/16/17 06:05 INR, PTT INR 1.27 (0.82-1.09) H 01/15/17 02:30 Problem List - Problems (1) Chest pain Code(s): R07.9 - CHEST PAIN, UNSPECIFIED (2) Diabetes Code(s): E11.9 - TYPE 2 DIABETES MELLITUS WITHOUT COMPLICATIONS (3) Hematuria Code(s): R31.9 - HEMATURIA, UNSPECIFIED (4) Hypertension Code(s): I10 - ESSENTIAL (PRIMARY) HYPERTENSION (5) CAD (coronary artery disease) Code(s): I25.10 - ATHSCL HEART DISEASE OF [place] CORONARY ARTERY W/O ANG PCTRS (6) Diabetes mellitus, insulin dependent (IDDM), uncontrolled Code(s): E10.65 - TYPE 1 DIABETES MELLITUS WITH HYPERGLYCEMIA (7) JOSSELYN (acute kidney injury) Code(s): N17.9 - ACUTE KIDNEY FAILURE, UNSPECIFIED Assessment/Plan Current Medications Generic Name Dose Route Start Last Admin Trade Name Freq PRN Reason Stop Dose Admin Aspirin 81 mg 01/15/17 10:00 01/16/17 10:11 Ecotrin - PO 81 mg DAILY JALIL Administration Clopidogrel Bisulfate 75 mg 01/15/17 10:00 01/16/17 10:11 Plavix - PO 75 mg DAILY JALIL Administration Docusate Sodium 100 mg 01/15/17 22:00 01/16/17 06:04 Colace - PO 100 mg TID JALIL Administration Ezetimibe 10 mg 01/16/17 10:00 01/16/17 10:12 Zetia - PO 10 mg DAILY JALIL Administration Gabapentin 100 mg 01/15/17 14:00 01/16/17 06:04 Neurontin - PO 100 mg TID JALIL Administration Sodium Chloride 1,000 mls @ 35 mls/hr 01/15/17 16:30 01/15/17 17:30 1/2 Normal Saline IV 35 mls/hr ASDIR JALIL Administration Insulin Aspart 1 vial 01/15/17 11:00 01/16/17 12:21 Novolog Vial Sliding Scale - SQ 6 units ACHS JALIL Administration Protocol Insulin Aspart 25 units 01/16/17 08:10 Novolog Mix 70/30 Vial SQ BIDAC [facility] Lisinopril 5 mg 01/15/17 10:00 01/16/17 10:11 Prinivil PO 5 mg DAILY [facility]ALIL Administration Magnesium Hydroxide 30 ml 01/15/17 20:47 Milk Of Magnesia - PO DAILY PRN CONSTIPATION Metoprolol Succinate 25 mg 01/15/17 21:04 01/16/17 10:12 Toprol Xl - PO 25 mg DAILY JALIL Administration Rytary 61.25/245mg 1 each 01/16/17 10:00 Caps PO DAILY JALIL Ewnsm-9-Fqef Ethyl Esters 2 gm 01/15/17 22:00 01/16/17 10:11 Lovaza - PO 2 gm BID JALIL Administration Ondansetron HCl 4 mg 01/15/17 07:15 Zofran Odt - SL Q6H PRN NAUSEA AND/OR VOMITING Pantoprazole Sodium 40 mg 01/15/17 10:00 01/16/17 10:11 Protonix - PO 40 mg DAILY JALIL Administration Rosuvastatin Calcium 20 mg 01/15/17 21:00 Crestor - PO Q48H JALIL Sitagliptin Phosphate 50 mg 01/16/17 08:45 01/16/17 10:11 Januvia - PO 50 mg DAILY@0700 JALIL Administration Impression 1. JOSSELYN 2. HTN 3. chest pain 4. DM 5. hematuria Plan - pt it tolerating diet - will hold fluids for now - urology input pending for elevated pvr - will needed better glucose control - bp is improved - cont lisinopril - urology eval for hematuria - will follow Dr Beckford
[2017-01-16] MEDS ORDERED: PT OWN MED DRAWER 7, Y5N ONE ×3 (14:55→17:12)
--- NOTE | 2017-01-16 16:13 | PN ---
Progress Note, Physician Chief Complaint: No complaints today inferior ischemia on stress test History of Present Illness: 81 y/o M with a PMHx of IDDM, HTN, HLD, prostate CA, CAD with h/o stents in 2005 who presents to the ED with high BP tonight, decreased in vision in left eye and chest pain. Patient reports he was home when felt like he could not see out of his left eye and called his son to come over. Also noted to have left chest pressure which was non-radiating. No sob or palpitations. Son reports bp was persistently high at home and gave him an extra dose of lisinopril and started to improve. No chest pain at this time. +hematuria which is of concern to the patient. - Current Medication List Current Medications: Active Medications Aspirin (Ecotrin -) 81 mg PO DAILY [facility] Last Admin: 01/16/17 10:11 Dose: 81 mg Clopidogrel Bisulfate (Plavix -) 75 mg PO DAILY [facility] Last Admin: 01/16/17 10:11 Dose: 75 mg Docusate Sodium (Colace -) 100 mg PO TID [facility] Last Admin: 01/16/17 15:16 Dose: 100 mg Ezetimibe (Zetia -) 10 mg PO DAILY [facility] Last Admin: 01/16/17 10:12 Dose: 10 mg Gabapentin (Neurontin -) 100 mg PO TID [facility] Last Admin: 01/16/17 15:16 Dose: 100 mg Insulin Aspart (Novolog Vial Sliding Scale -) 1 vial SQ ACHS [facility] PRN Reason: Protocol Last Admin: 01/16/17 12:21 Dose: 6 units Insulin Aspart (Novolog Mix 70/30 Vial) 25 units SQ BIDAC [facility] Lisinopril (Prinivil) 5 mg PO DAILY [facility] Last Admin: 01/16/17 10:11 Dose: 5 mg Magnesium Hydroxide (Milk Of Magnesia -) 30 ml PO DAILY PRN PRN Reason: CONSTIPATION Metoprolol Succinate (Toprol Xl -) 25 mg PO DAILY [facility] Last Admin: 01/16/17 10:12 Dose: 25 mg Rytary 61.25/245mg (Caps) 1 each PO DAILY [facility] Kzmwg-2-Ttdq Ethyl Esters (Lovaza -) 2 gm PO BID [facility] Last Admin: 01/16/17 10:11 Dose: 2 gm Ondansetron HCl (Zofran Odt -) 4 mg SL Q6H PRN PRN Reason: NAUSEA AND/OR VOMITING Pantoprazole Sodium (Protonix -) 40 mg PO DAILY [facility] Last Admin: 01/16/17 10:11 Dose: 40 mg Rosuvastatin Calcium (Crestor -) 20 mg PO Q48H [facility] Sitagliptin Phosphate (Januvia -) 50 mg PO DAILY@0700 [facility] Last Admin: 01/16/17 10:11 Dose: 50 mg - Objective Vital Signs: Vital Signs Temperature 98.3 F 01/16/17 14:00 Pulse Rate 68 01/16/17 14:00 Respiratory Rate 14 01/16/17 11:23 Blood Pressure 152/77 01/16/17 14:00 O2 Sat by Pulse Oximetry (%) 96 01/16/17 11:23 Constitutional: Yes: No Distress Neck: Yes: Supple Cardiovascular: Yes: Regular Rate and Rhythm, S1, S2. No: JVD, Murmur Respiratory: Yes: CTA Bilaterally Gastrointestinal: Yes: Soft Edema: LLE: Trace, RLE: Trace Labs: INR, PTT INR 1.27 (0.82-1.09) H 01/15/17 02:30 Problem List - Problems (1) Chest pain Code(s): R07.9 - CHEST PAIN, UNSPECIFIED (2) CAD (coronary artery disease) Code(s): I25.10 - ATHSCL HEART DISEASE OF [place] CORONARY ARTERY W/O ANG PCTRS Assessment/Plan 81 y/o M with a PMHx of IDDM, HTN, HLD, prostate CA, CAD with h/o stents in 2005 who presents to the ED with high BP tonight, decreased in vision in left eye and chest pain. Patient reports he was home when felt like he could not see out of his left eye and called his son to come over. Also noted to have left chest pressure which was non-radiating. No sob or palpitations. Son reports bp was persistently high at home and gave him an extra dose of lisinopril and started to improve. No chest pain at this time. +hematuria which is of concern to the patient. 1) Chest pain/CAD -No acute EKG changes and troponins negative No events on telemetry -On aspirin/plavix Statins being reduced due to lft's -Echocardiogram with normal LVEF with mild interventricular septal hypokinesis Nuclear Stress Test with subtle diaphragmatic artifact as well as inferior ischemia but with normal LV wall motion. Patient has remained symptom free with no chest pain with ambulation since admission and bp better controlled. Cr 1.8 on admission. Would treat medically at this time aspirin/plavix/statin/beta gladys. If blood pressure allows start imdur 30mg daily. Follow up as an outpatient with cardiology and if recurrent chest pain than plan for cardiac cath. 2) HTN -Toprol and lisinopril If bp allows start imdur 30mg daily 3) Neuro -CT head no acute m/s/b BP control F/u with primary team whether or not any further neuro work up indicated
[2017-01-16] MEDS ORDERED: LORazepam 1 MG TABLET PO STA (19:58)
--- NOTE | 2017-01-16 20:03 | PN ---
GI Progress Note Subjective: patieint denies abdominal pain, he was noted to have multiiple gallbladder stones associated with top normal CBD by ultrasouns. He is awaiting MRCP - Objective Vital Signs: Vital Signs Temperature 98.5 F 01/16/17 19:29 Pulse Rate 69 01/16/17 19:29 Respiratory Rate 18 01/16/17 19:29 Blood Pressure 139/75 01/16/17 19:29 O2 Sat by Pulse Oximetry (%) 96 01/16/17 11:23 Constitutional: Well Nourished Eyes: Yes: Conjunctiva Clear HENT: Yes: Atraumatic Neck: Yes: Supple Respiratory: Yes: CTA Bilaterally Gastrointestinal Inspection: No: Distention ...Palpate: Yes: Soft. No: Firm/Rigid, Guarding, Hepatomegaly, Mass, Pulsatile Mass, Splenomegaly Labs: INR, PTT INR 1.27 (0.82-1.09) H 01/15/17 02:30 Problem List - Problems (1) Elevated liver enzymes Assessment/Plan: R> await MRCP adjust stati dose depending on enzyme elevation Code(s): R74.8 - ABNORMAL LEVELS OF OTHER SERUM ENZYMES
[2017-01-16] MEDS ORDERED: LORazepam 2 MG/ML SDV VIAL IVPUSH STA (20:04)
--- NOTE | 2017-01-17 01:36 | CONSULT ---
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 Cardio/Vascular: Yes: CAD, HTN, Hyperlipdemia Gastrointestinal: Yes: Constipation Renal/: Yes: Other Endocrine: Yes: Diabetes Mellitus - Alcohol/Substance Use Hx Alcohol Use: No - Smoking History Smoking history: Former smoker Have you smoked in the past 12 months: No Home Medications - Allergies Allergies/Adverse Reactions: Allergies Allergy/AdvReac Type Severity Reaction Status Date / Time No Known Drug Allergies Allergy Verified 01/15/17 01:38 - Home Medications Home Medications: Ambulatory Orders Gabapentin 100 mg PO BID 07/05/14 Sitagliptin Phosphate [Januvia] 100 mg PO DAILY 07/05/14 Insulin Lispro Protamin/Lispro [Humalog Mix 50-50 Vial] 0 unit SQ DAILY #0 03/22 Aspirin [ASA -] 81 mg PO DAILY 03/06/16 Carbidopa/Levodopa [Rytary ER 61.25 mg-245 mg Cap] 1 each PO DAILY 03/06/16 Clopidogrel Bisulfate [Plavix -] 75 mg PO DAILY 03/06/16 Docusate Sodium [Stool Softener] 50 mg PO TID 03/06/16 Ergocalciferol (Vitamin D2) [Vitamin D2] 2,000 unit PO DAILY 03/06/16 Esomeprazole Magnesium [Nexium 24Hr] 40 mg PO DAILY 03/06/16 Linaclotide [Linzess] 145 mcg PO DAILY 03/06/16 Lisinopril 5 mg PO DAILY 03/06/16 Methylcellulose [Fiber Therapy] 500 mg PO DAILY 03/06/16 Mirabegron [Myrbetriq] 50 mg PO DAILY 03/06/16 Rosuvastatin Calcium [Crestor] 5 mg PO DAILY 03/06/16 Review of Systems - Review of Systems Constitutional: reports: Lethargy, Loss of Appetite, Weakness Eyes: reports: Blurred Vision HENT: reports: No Symptoms Neck: reports: Decreased ROM, Tenderness Cardiovascular: reports: Shortness of Breath Respiratory: reports: Exercise Intolerance, SOB on Exertion Gastrointestinal: reports: Bloating, Constipation Genitourinary: reports: Frequency, Urgency Breasts: reports: No Symptoms Reported Musculoskeletal: reports: Back Pain, Decreased ROM, Muscle Cramps Neurological: reports: Dizziness, Numbness, Weakness Endocrine: reports: Unexplained Weight Gain Physical Exam Vital Signs: Vital Signs Temperature 98.4 F 01/16/17 23:00 Pulse Rate 72 01/16/17 23:00 Respiratory Rate 20 01/16/17 23:00 Blood Pressure 129/68 01/16/17 23:00 O2 Sat by Pulse Oximetry (%) 96 01/16/17 11:23 Constitutional: Yes: Calm Eyes: Yes: EOM Intact HENT: Yes: Normocephalic Neck: Yes: Trachea Midline Cardiovascular: Yes: Regular Rate and Rhythm Respiratory: Yes: CTA Bilaterally Gastrointestinal: Yes: Normal Bowel Sounds ...Rectal Exam: Yes: Deferred Renal/: Yes: WNL Breast(s): Yes: WNL Musculoskeletal: Yes: Back Pain, Muscle Pain, Muscle Weakness Extremities: Yes: WNL Edema: No Neurological: Yes: Alert, Oriented, Numbness, Unsteady Gait, Weakness Problem List - Problems (1) JOSSELYN (acute kidney injury) Code(s): N17.9 - ACUTE KIDNEY FAILURE, UNSPECIFIED (2) Diabetes Code(s): E11.9 - TYPE 2 DIABETES MELLITUS WITHOUT COMPLICATIONS (3) Elevated liver enzymes Code(s): R74.8 - ABNORMAL LEVELS OF OTHER SERUM ENZYMES (4) Hematuria Code(s): R31.9 - HEMATURIA, UNSPECIFIED (5) Hypertension Code(s): I10 - ESSENTIAL (PRIMARY) HYPERTENSION (6) CAD (coronary artery disease) Code(s): I25.10 - ATHSCL HEART DISEASE OF [place] CORONARY ARTERY W/O ANG PCTRS (7) Diabetes mellitus, insulin dependent (IDDM), uncontrolled Code(s): E10.65 - TYPE 1 DIABETES MELLITUS WITH HYPERGLYCEMIA Assessment/Plan Current Active Problems JOSSELYN (acute kidney injury) (Acute) Chest pain (Acute) Diabetes (Acute) Elevated liver enzymes (Acute) Hematuria (Acute) Hypertension (Acute) Abnormal Lab Results 01/15/17 01/16/17 01/16/17 20:00 06:05 06:05 Monocytes % 10.3 H Eosinophils % 6.5 H BUN 31 H Creatinine 1.6 H Random Glucose 290 H D Total Bilirubin 1.4 H AST 81 H D ALT 85 H D Alkaline Phosphatase 328 H Albumin 2.5 L Urine Glucose (UA) 3+ H Laboratory Results - last 24 hr 01/15/17 01/15/17 01/16/17 12:05 20:00 05:52 WBC RBC Hgb Hct MCV MCH MCHC RDW Plt Count MPV Neutrophils % Lymphocytes % Monocytes % Eosinophils % Basophils % Sodium Potassium Chloride Carbon Dioxide Anion Gap BUN Creatinine Creat Clearance w eGFR POC Glucometer > 400 289 Random Glucose Calcium Total Bilirubin AST ALT Alkaline Phosphatase Total Protein Albumin Urine Color Yellow Urine Appearance Clear Urine pH 5.0 Ur Specific [place] 1.015 Urine Protein Negative Urine Glucose (UA) 3+ H Urine Ketones Negative Urine Blood Negative Urine Nitrite Negative Urine Bilirubin Negative Urine Urobilinogen Negative Ur Leukocyte Esterase Negative 01/16/17 01/16/17 01/16/17 06:05 06:05 12:19 WBC 5.8 RBC 4.23 Hgb 12.8 D Hct 39.0 MCV 92.1 MCH 30.3 MCHC 32.9 RDW 13.7 Plt Count 186 MPV 9.6 D Neutrophils % 53.2 Lymphocytes % 28.9 Monocytes % 10.3 H Eosinophils % 6.5 H Basophils % 1.1 Sodium 138 Potassium 4.0 Chloride 104 Carbon Dioxide 24 Anion Gap 10 BUN 31 H Creatinine 1.6 H Creat Clearance w eGFR 41.49 POC Glucometer 293 Random Glucose 290 H D Calcium 8.8 Total Bilirubin 1.4 H AST 81 H D ALT 85 H D Alkaline Phosphatase 328 H Total Protein 7.4 Albumin 2.5 L Urine Color Urine Appearance Urine pH Ur Specific [place] Urine Protein Urine Glucose (UA) Urine Ketones Urine Blood Urine Nitrite Urine Bilirubin Urine Urobilinogen Ur Leukocyte Esterase 01/16/17 01/16/17 15:41 22:16 WBC RBC Hgb Hct MCV MCH MCHC RDW Plt Count MPV Neutrophils % Lymphocytes % Monocytes % Eosinophils % Basophils % Sodium Potassium Chloride Carbon Dioxide Anion Gap BUN Creatinine Creat Clearance w eGFR POC Glucometer 313 294 Random Glucose Calcium Total Bilirubin AST ALT Alkaline Phosphatase Total Protein Albumin Urine Color Urine Appearance Urine pH Ur Specific [place] Urine Protein Urine Glucose (UA) Urine Ketones Urine Blood Urine Nitrite Urine Bilirubin Urine Urobilinogen Ur Leukocyte Esterase plan: bgm qid novolog insulin coverage Current Medications Generic Name Dose Route Start Last Admin Trade Name Meenakshi PRN Reason Stop Dose Admin Aspirin 81 mg 01/15/17 10:00 01/16/17 10:11 Ecotrin - PO 81 mg DAILY JALIL Administration Clopidogrel Bisulfate 75 mg 01/15/17 10:00 01/16/17 10:11 Plavix - PO 75 mg DAILY JALIL Administration Docusate Sodium 100 mg 01/15/17 22:00 01/16/17 22:33 Colace - PO 100 mg TID JALIL Administration Ezetimibe 10 mg 01/16/17 10:00 01/16/17 10:12 Zetia - PO 10 mg DAILY JALIL Administration Gabapentin 100 mg 01/15/17 14:00 01/16/17 22:33 Neurontin - PO 100 mg TID JALIL Administration Insulin Aspart 1 vial 01/15/17 11:00 01/16/17 22:33 Novolog Vial Sliding Scale - SQ 6 units ACHS JALIL Administration Protocol Insulin Aspart 30 01/16/17 08:10 01/16/17 17:39 Novolog Mix 70/30 Vial SQ 25 units BIDAC JALIL Administration Lisinopril 5 mg 01/15/17 10:00 01/16/17 10:11 Prinivil PO 5 mg DAILY JALIL Administration Magnesium Hydroxide 30 ml 01/15/17 20:47 Milk Of Magnesia - PO DAILY PRN CONSTIPATION Metoprolol Succinate 25 mg 01/15/17 21:04 01/16/17 10:12 Toprol Xl - PO 25 mg DAILY JALIL Administration Rytary 61.25/245mg 1 each 01/16/17 10:00 01/16/17 14:00 Caps PO 1 each DAILY JALIL Administration [id number] Ethyl Esters 2 gm 01/15/17 22:00 01/16/17 22:33 Lovaza - PO 2 gm BID JALIL Administration Ondansetron HCl 4 mg 01/15/17 07:15 Zofran Odt - SL Q6H PRN NAUSEA AND/OR VOMITING Pantoprazole Sodium 40 mg 01/15/17 10:00 01/16/17 10:11 Protonix - PO 40 mg DAILY JALIL Administration Rosuvastatin Calcium 20 mg 01/15/17 21:00 Crestor - PO Q48H JALIL Sitagliptin Phosphate 50 mg 01/16/17 08:45 01/16/17 10:11 Januvia - PO 50 mg DAILY@0700 JALIL Administration ck hb a1c
[2017-01-17] MEDS: INSULIN (NOVOLOG MIX 70/30) 100 UNITS/ML MDV SQ SCH ×3 (06:36→17:29)
[2017-01-17] MEDS: sitaGLIPtin PHOSPHATE 50 MG TABLET PO SCH (06:36)
[2017-01-17] MEDS: DOCUSATE SODIUM 100 MG CAPSULE (FP) PO SCH ×3 (06:36→21:42)
[2017-01-17] MEDS: GABAPENTIN 100 MG CAPSULE (FP) PO SCH ×3 (06:36→21:42)
[2017-01-17] MEDS: INSULIN SLIDING SCALE (NOVOLOG) 1 VIAL SQ SCH ×4 (06:39→21:42)
[2017-01-17 07:12] LABS: ALBUMIN 2.5 g/dl (3.4-5.0)
[2017-01-17 07:16] LABS: BILIRUBIN,DIRECT 1.2 mg/dL (0.0-0.2); BILIRUBIN,TOTAL 1.9 mg/dL (0.2-1.0); TOT PROT 7.6 g/dl (6.4-8.2)
--- NOTE | 2017-01-17 08:19 | PN ---
Progress Note, Physician - Current Medication List Current Medications: Active Medications Aspirin (Ecotrin -) 81 mg PO DAILY [facility] Last Admin: 01/16/17 10:11 Dose: 81 mg Clopidogrel Bisulfate (Plavix -) 75 mg PO DAILY [facility] Last Admin: 01/16/17 10:11 Dose: 75 mg Docusate Sodium (Colace -) 100 mg PO TID [facility] Last Admin: 01/17/17 06:36 Dose: Not Given Ezetimibe (Zetia -) 10 mg PO DAILY [facility] Last Admin: 01/16/17 10:12 Dose: 10 mg Gabapentin (Neurontin -) 100 mg PO TID [facility] Last Admin: 01/17/17 06:36 Dose: Not Given Insulin Aspart (Novolog Vial Sliding Scale -) 1 vial SQ ACHS [facility] PRN Reason: Protocol Last Admin: 01/17/17 06:39 Dose: 6 units Insulin Aspart (Novolog Mix 70/30 Vial) 30 units SQ BIDAC [facility] Last Admin: 01/17/17 06:36 Dose: Not Given Lisinopril (Prinivil) 5 mg PO DAILY [facility] Last Admin: 01/16/17 10:11 Dose: 5 mg Magnesium Hydroxide (Milk Of Magnesia -) 30 ml PO DAILY PRN PRN Reason: CONSTIPATION Metoprolol Succinate (Toprol Xl -) 25 mg PO DAILY [facility] Last Admin: 01/16/17 10:12 Dose: 25 mg Rytary 61.25/245mg (Caps) 1 each PO DAILY [facility] Last Admin: 01/16/17 14:00 Dose: 1 each Fvcoc-0-Sqiy Ethyl Esters (Lovaza -) 2 gm PO BID [facility] Last Admin: 01/16/17 22:33 Dose: 2 gm Ondansetron HCl (Zofran Odt -) 4 mg SL Q6H PRN PRN Reason: NAUSEA AND/OR VOMITING Pantoprazole Sodium (Protonix -) 40 mg PO DAILY [facility] Last Admin: 01/16/17 10:11 Dose: 40 mg Rosuvastatin Calcium (Crestor -) 20 mg PO Q48H [facility] Sitagliptin Phosphate (Januvia -) 50 mg PO DAILY@0700 [facility] Last Admin: 01/17/17 06:36 Dose: Not Given - Objective Vital Signs: Vital Signs Temperature 97.4 F L 01/17/17 02:09 Pulse Rate 73 01/17/17 07:00 Respiratory Rate 20 01/17/17 07:00 Blood Pressure 136/61 01/17/17 07:00 O2 Sat by Pulse Oximetry (%) 96 01/16/17 11:23 Cardiovascular: Yes: Regular Rate and Rhythm Respiratory: Yes: Regular, CTA Bilaterally Gastrointestinal: Yes: Normal Bowel Sounds, Soft Edema: No Labs: INR, PTT INR 1.27 (0.82-1.09) H 01/15/17 02:30 Assessment/Plan - Problems (1) JOSSELYN (acute kidney injury) Assessment/Plan: -renal consult -IV fluids -avoid nephrotoxic drugs -drugs to be dosed according to CrCl -decrease Januvia to 50 mg po daily Code(s): N17.9 - ACUTE KIDNEY FAILURE, UNSPECIFIED (2) Chest pain Assessment/Plan: -cardiology consult--f/u noted -EKG -stress test positive for ischemia-- discussed with cardio no cath medical management -echo -telemetry Code(s): R07.9 - CHEST PAIN, UNSPECIFIED (3) Elevated liver enzymes Assessment/Plan: -patient aymptomatic -seen by GI consult -on Crestor -Zetia 10 mg po daily -U/S abdomen hepatic steatosis--MRCP and CA19-9 -monitor labs in AM Code(s): R74.8 - ABNORMAL LEVELS OF OTHER SERUM ENZYMES (4) Hematuria Assessment/Plan: -Urology consult -UA/UC Code(s): R31.9 - HEMATURIA, UNSPECIFIED (5) Hypertension Assessment/Plan: -managed by cardiology -better controlled -on Fernando and B-gladys Code(s): I10 - ESSENTIAL (PRIMARY) HYPERTENSION (6) CAD (coronary artery disease) Assessment/Plan: -on asa/plavix -statin -BB/fernando Code(s): I25.10 - ATHSCL HEART DISEASE OF [place] CORONARY ARTERY W/O ANG PCTRS (7) Diabetes mellitus, insulin dependent (IDDM), uncontrolled Assessment/Plan: -uncontrolled with HgA1c at 9.6 -endocrinology consult -BGM AC HS -novolog 70/30 increased -Insulin sliding scale-- -Januvia decreased to 50 mg because of creatinine clearance Code(s): E10.65 - TYPE 1 DIABETES MELLITUS WITH HYPERGLYCEMIA (8) Parkinson disease Assessment/Plan: -Chronic -on Rytary- may use his own medication -to be seen by Neurology -unsteady gait -Physical therapy Code(s): G20 - PARKINSON'S DISEASE
--- NOTE | 2017-01-17 09:41 | CONSULT ---
Consult - text type - Consultation Consultation Note: NEUROLOGY CONSULTATION is greatly appreciated: This 81 yo RH man with h/o HTN, DM, Chol, prostatic Ca and ASHD is known to me with Parkinson's disease. Last seen 02/20/16. Meds include lisinopril, metoprolol, januvia, insulin, crestor, zetia, myrbetriq clopidogrel, ASA and Rytary (245) TID (but takes qd). Noncompliant with meds and f/u visits. 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 Now admitted after 2 weeks of hematuria. 2 days of blurred vision left eye (? diplopia) and systolic BP's > 200 mmHg. MRI of brain (reviewed): Moderately severe, diffuse, atrophy and diffuse microvascular changes. Carotid duplex: scattered plaque without significant hemodynamic changes. MERRY: Mod obese. No bruits. Cor reg. NEURO: mild OMS. Ox Sat, 2016. Recalls 2 of 3 at 3 mins. CN: Good acuity and full monocular and binocular visual milton.Full EOM's without diplopia. Reduced tongue FRANKO's but gag OK. Motor: Rhythmic rest tremor. ++Cogwheel rigidity. Intrinsic weakness (3/5) and atrophy b/l. Mild ankle dorsiflexion weakness. Areflexic in legs. Coord: No FTN dystaxia Sensory: Decreased vib to ankles. Decreased pi both hands Gait: Flexed, shuffling, retropulsive and unsteady. IMP:1. Parkinson's disease. 2. 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 4. Hypertensive encephalopathy +/- TIA. SUGGEST: Continue plavix and ASA Encourage compliance with meds. Increase Rytary to 245 TID @ 7, 12, and 5 (but this will still be too low due to Pt's missing f/u visits) Pad all chair arms vs Ulnar compressions at elbows. Neurology f/u as out patient. Thank you very much, Bentley France MD
[2017-01-17] MEDS: LISINOPRIL 5 MG TABLET (FP) PO SCH (10:03)
[2017-01-17] MEDS: PANTOPRAZOLE 40 MG TABLET (FP) PO SCH (10:03)
[2017-01-17] MEDS: OMEGA-3 ACID ETHYL ESTERS (FATTY-ACIDS) 1 GM CAPSULE (FP) PO SCH ×2 (10:03→21:42)
[2017-01-17] MEDS: METOPROLOL SUCCINATE 25 MG TAB.SR.24H (FP) PO SCH (10:03)
[2017-01-17] MEDS: ASPIRIN COATED 81 MG TABLET.EC PO SCH (10:04)
[2017-01-17] MEDS: CLOPIDOGREL BISULFATE 75 MG TABLET (FP) PO SCH (10:04)
[2017-01-17] MEDS: EZETIMIBE 10 MG TABLET (FP) PO SCH (10:04)
--- NOTE | 2017-01-17 11:08 | PN ---
Progress Note, Physician Chief Complaint: No complaints today History of Present Illness: 81 y/o M with a PMHx of IDDM, HTN, HLD, prostate CA, CAD with h/o stents in 2005 who presents to the ED with high BP tonight, decreased in vision in left eye and chest pain. Patient reports he was home when felt like he could not see out of his left eye and called his son to come over. Also noted to have left chest pressure which was non-radiating. No sob or palpitations. Son reports bp was persistently high at home and gave him an extra dose of lisinopril and started to improve. No chest pain at this time. +hematuria which is of concern to the patient. - Current Medication List Current Medications: Active Medications Aspirin (Ecotrin -) 81 mg PO DAILY [facility] Last Admin: 01/17/17 10:04 Dose: 81 mg Clopidogrel Bisulfate (Plavix -) 75 mg PO DAILY [facility] Last Admin: 01/17/17 10:04 Dose: 75 mg Docusate Sodium (Colace -) 100 mg PO TID [facility] Last Admin: 01/17/17 06:36 Dose: Not Given Ezetimibe (Zetia -) 10 mg PO DAILY [facility] Last Admin: 01/17/17 10:04 Dose: 10 mg Gabapentin (Neurontin -) 100 mg PO TID [facility] Last Admin: 01/17/17 06:36 Dose: Not Given Insulin Aspart (Novolog Vial Sliding Scale -) 1 vial SQ ACHS [facility] PRN Reason: Protocol Last Admin: 01/17/17 06:39 Dose: 6 units Insulin Aspart (Novolog Mix 70/30 Vial) 30 units SQ BIDAC [facility] Last Admin: 01/17/17 09:05 Dose: 30 units Lisinopril (Prinivil) 5 mg PO DAILY [facility] Last Admin: 01/17/17 10:03 Dose: 5 mg Magnesium Hydroxide (Milk Of Magnesia -) 30 ml PO DAILY PRN PRN Reason: CONSTIPATION Metoprolol Succinate (Toprol Xl -) 25 mg PO DAILY [facility] Last Admin: 01/17/17 10:03 Dose: 25 mg Rytary Er 61.25- 245mg-Patient's Own Medication (Non- Formulary) 1 each PO 0700 ,1200,1700 [facility] Udrqh-3-Ieyg Ethyl Esters (Lovaza -) 2 gm PO BID [facility] Last Admin: 01/17/17 10:03 Dose: 2 gm Ondansetron HCl (Zofran Odt -) 4 mg SL Q6H PRN PRN Reason: NAUSEA AND/OR VOMITING Pantoprazole Sodium (Protonix -) 40 mg PO DAILY [facility] Last Admin: 01/17/17 10:03 Dose: 40 mg Rosuvastatin Calcium (Crestor -) 20 mg PO Q48H [facility] Sitagliptin Phosphate (Januvia -) 50 mg PO DAILY@0700 [facility] Last Admin: 01/17/17 06:36 Dose: Not Given - Objective Vital Signs: Vital Signs Temperature 98.2 F 01/17/17 08:05 Pulse Rate 74 01/17/17 08:05 Respiratory Rate 14 01/17/17 08:05 Blood Pressure 134/68 01/17/17 08:05 O2 Sat by Pulse Oximetry (%) 96 01/16/17 11:23 Constitutional: Yes: No Distress Neck: Yes: WNL Cardiovascular: Yes: Regular Rate and Rhythm, S1, S2. No: Bruit, JVD, Murmur Respiratory: Yes: CTA Bilaterally Gastrointestinal: Yes: Normal Bowel Sounds, Soft Edema: LLE: Trace, RLE: Trace Labs: INR, PTT INR 1.27 (0.82-1.09) H 01/15/17 02:30 Problem List - Problems (1) Chest pain Code(s): R07.9 - CHEST PAIN, UNSPECIFIED (2) CAD (coronary artery disease) Code(s): I25.10 - ATHSCL HEART DISEASE OF [place] CORONARY ARTERY W/O ANG PCTRS Assessment/Plan 81 y/o M with a PMHx of IDDM, HTN, HLD, prostate CA, CAD with h/o stents in 2005 who presents to the ED with high BP tonight, decreased in vision in left eye and chest pain. Patient reports he was home when felt like he could not see out of his left eye and called his son to come over. Also noted to have left chest pressure which was non-radiating. No sob or palpitations. Son reports bp was persistently high at home and gave him an extra dose of lisinopril and started to improve. No chest pain at this time. +hematuria which is of concern to the patient. 1) Chest pain/CAD -No acute EKG changes and troponins negative No events on telemetry -On aspirin/plavix Statins being reduced due to lft's -Echocardiogram with normal LVEF with mild interventricular septal hypokinesis Nuclear Stress Test with subtle diaphragmatic artifact as well as inferior ischemia but with normal LV wall motion. Patient has remained symptom free with no chest pain with ambulation since admission and bp better controlled. Cr 1.8 on admission. Would treat medically at this time aspirin/plavix/statin/beta gladys. If blood pressure allows start imdur 30mg daily. Follow up as an outpatient with cardiology and if recurrent chest pain than plan for cardiac cath. 2) HTN -Toprol and lisinopril If bp allows but not now start imdur 30mg daily 3) Neuro -CT head no acute m/s/b BP control F/u with neuro. Parkinson meds being adjusted. Will sign off at this time. Patient should follow up with cardiology as an outpatient.
--- NOTE | 2017-01-17 11:59 | EKG ---
Test Reason : Blood Pressure : / mmHG Vent. Rate : 080 BPM Atrial Rate : 080 BPM P-R Int : 202 ms QRS Dur : 090 ms QT Int : 374 ms P-R-T Axes : 024 -20 -03 degrees QTc Int : 431 ms NORMAL SINUS RHYTHM MINIMAL VOLTAGE CRITERIA FOR LVH, MAY BE NORMAL VARIANT POSSIBLE ANTERIOR INFARCT (CITED ON OR BEFORE 15-JAN-2017) ABNORMAL ECG WHEN COMPARED WITH ECG OF 15-JAN-2017 01:38, T WAVE INVERSION NOW EVIDENT IN INFERIOR LEADS Confirmed by MEMO ESCOBAR MD ([id number]) on 01/17/2017 11:59:11 AM Referred By: Confirmed By:MEMO ESCOBAR MD
[2017-01-17 12:08] LABS: ANION GAP 10 (8-16); CALCIUM 8.4 mg/dL (8.5-10.1); CO2 24 mmol/L (21-32); CREATININE 1.2 mg/dL (0.7-1.3); GLUCOSE,RANDOM 76 mg/dL (74-106)
--- NOTE | 2017-01-17 12:45 | CON.GU ---
Consult Consult Specialty:: for Dr. Neil Kennedy Referred by:: Dorinda Reason for Consultation:: hematuria - History of Present Illness Chief Complaint: HTN History of Present Illness: 81 yo m w hx prostate ca adm 01/16/17 w HTN who noted gross hematuria ~ 2 weeks ago, now resolved. cons req. Pt denies any voiding probs. 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 Cardio/Vascular: Yes: CAD, HTN, Hyperlipdemia Gastrointestinal: Yes: Constipation Renal/: Yes: BPH, Other Endocrine: Yes: Diabetes Mellitus - Alcohol/Substance Use Hx Alcohol Use: No - Smoking History Smoking history: Former smoker Have you smoked in the past 12 months: No Home Medications - Allergies Allergies/Adverse Reactions: Allergies Allergy/AdvReac Type Severity Reaction Status Date / Time No Known Drug Allergies Allergy Verified 01/15/17 01:38 - Home Medications Home Medications: Ambulatory Orders Gabapentin 100 mg PO BID 07/05/14 Sitagliptin Phosphate [Januvia] 100 mg PO DAILY 07/05/14 Insulin Lispro Protamin/Lispro [Humalog Mix 50-50 Vial] 0 unit SQ DAILY #0 03/22 Aspirin [ASA -] 81 mg PO DAILY 03/06/16 Carbidopa/Levodopa [Rytary ER 61.25 mg-245 mg Cap] 1 each PO DAILY 03/06/16 Clopidogrel Bisulfate [Plavix -] 75 mg PO DAILY 03/06/16 Docusate Sodium [Stool Softener] 50 mg PO TID 03/06/16 Ergocalciferol (Vitamin D2) [Vitamin D2] 2,000 unit PO DAILY 03/06/16 Esomeprazole Magnesium [Nexium 24Hr] 40 mg PO DAILY 03/06/16 Linaclotide [Linzess] 145 mcg PO DAILY 03/06/16 Lisinopril 5 mg PO DAILY 03/06/16 Methylcellulose [Fiber Therapy] 500 mg PO DAILY 03/06/16 Mirabegron [Myrbetriq] 50 mg PO DAILY 03/06/16 Rosuvastatin Calcium [Crestor] 5 mg PO DAILY 03/06/16 Physical Exam- Vital Signs: Vital Signs Temperature 98.2 F 01/17/17 08:05 Pulse Rate 74 01/17/17 08:05 Respiratory Rate 14 01/17/17 11:32 Blood Pressure 134/68 01/17/17 08:05 O2 Sat by Pulse Oximetry (%) 96 01/17/17 11:32 Constitutional: Yes: Well Nourished, No Distress, Calm Eyes: Yes: WNL, EOM Intact HENT: Yes: WNL, Atraumatic, Normocephalic Gastrointestinal: Yes: WNL, Normal Bowel Sounds, Soft Renal/: Yes: WNL. No: Bladder Distention Kidneys: Yes: WNL Pelvis: Yes: WNL Testicles: Yes: WNL, Descended Scrotum: Yes: WNL Penis: Yes: WNL Prostate Exam: Yes: Swollen Labs: CBC, BMP 01/17/17 06:15 Imaging - Results Ultrasound: Report Reviewed Assessment/Plan Imp: resolved gross hematuria, hx of prostate ca, incomplete bladder emptying Rec: cont current rx, f/u w Dr Neil Kennedy after disch.
[2017-01-17] MEDS: RYTARY PO SCH ×2 (13:30→17:29)
--- NOTE | 2017-01-17 16:12 | PN ---
Progress Note, Physician History of Present Illness: Pt seen and examined at bedside. He is awake and alert. He says he feels well. - Current Medication List Current Medications: Active Medications Aspirin (Ecotrin -) 81 mg PO DAILY [facility] Last Admin: 01/17/17 10:04 Dose: 81 mg Clopidogrel Bisulfate (Plavix -) 75 mg PO DAILY [facility] Last Admin: 01/17/17 10:04 Dose: 75 mg Docusate Sodium (Colace -) 100 mg PO TID [facility] Last Admin: 01/17/17 14:26 Dose: 100 mg Ezetimibe (Zetia -) 10 mg PO DAILY [facility] Last Admin: 01/17/17 10:04 Dose: 10 mg Gabapentin (Neurontin -) 100 mg PO TID [facility] Last Admin: 01/17/17 14:26 Dose: 100 mg Insulin Aspart (Novolog Vial Sliding Scale -) 1 vial SQ ACHS [facility] PRN Reason: Protocol Last Admin: 01/17/17 12:30 Dose: 8 units Insulin Aspart (Novolog Mix 70/30 Vial) 30 units SQ BIDAC [facility] Last Admin: 01/17/17 09:05 Dose: 30 units Lisinopril (Prinivil) 5 mg PO DAILY [facility] Last Admin: 01/17/17 10:03 Dose: 5 mg Magnesium Hydroxide (Milk Of Magnesia -) 30 ml PO DAILY PRN PRN Reason: CONSTIPATION Metoprolol Succinate (Toprol Xl -) 25 mg PO DAILY [facility] Last Admin: 01/17/17 10:03 Dose: 25 mg Rytary Er 61.25- 245mg-Patient's Own Medication (Non- Formulary) 1 each PO 0700 ,1200,1700 [facility] Last Admin: 01/17/17 13:30 Dose: 1 each Bhoyl-9-Eckz Ethyl Esters (Lovaza -) 2 gm PO BID [facility] Last Admin: 01/17/17 10:03 Dose: 2 gm Ondansetron HCl (Zofran Odt -) 4 mg SL Q6H PRN PRN Reason: NAUSEA AND/OR VOMITING Pantoprazole Sodium (Protonix -) 40 mg PO DAILY [facility] Last Admin: 01/17/17 10:03 Dose: 40 mg Rosuvastatin Calcium (Crestor -) 20 mg PO Q48H [facility] Sitagliptin Phosphate (Januvia -) 50 mg PO DAILY@0700 [facility] Last Admin: 01/17/17 06:36 Dose: Not Given - Objective Vital Signs: Vital Signs Temperature 97.6 F 01/17/17 14:00 Pulse Rate 75 01/17/17 14:00 Respiratory Rate 20 01/17/17 14:00 Blood Pressure 134/76 01/17/17 14:00 O2 Sat by Pulse Oximetry (%) 96 01/17/17 11:32 Constitutional: Yes: Calm Eyes: Yes: Conjunctiva Clear HENT: Yes: Atraumatic Neck: Yes: Supple Cardiovascular: Yes: S1, S2 Respiratory: Yes: CTA Bilaterally Gastrointestinal: Yes: Soft Genitourinary: Yes: WNL Extremities: Yes: WNL Edema: Yes Edema: LLE: Trace, RLE: Trace Neurological: Yes: Oriented Psychiatric: Yes: Oriented Labs: CBC, BMP 01/17/17 06:15 INR, PTT INR 1.27 (0.82-1.09) H 01/15/17 02:30 Problem List - Problems (1) Chest pain Code(s): R07.9 - CHEST PAIN, UNSPECIFIED (2) Diabetes Code(s): E11.9 - TYPE 2 DIABETES MELLITUS WITHOUT COMPLICATIONS (3) Hematuria Code(s): R31.9 - HEMATURIA, UNSPECIFIED (4) Hypertension Code(s): I10 - ESSENTIAL (PRIMARY) HYPERTENSION (5) CAD (coronary artery disease) Code(s): I25.10 - ATHSCL HEART DISEASE OF [place] CORONARY ARTERY W/O ANG PCTRS (6) Diabetes mellitus, insulin dependent (IDDM), uncontrolled Code(s): E10.65 - TYPE 1 DIABETES MELLITUS WITH HYPERGLYCEMIA (7) JOSSELYN (acute kidney injury) Code(s): N17.9 - ACUTE KIDNEY FAILURE, UNSPECIFIED Assessment/Plan Current Medications Generic Name Dose Route Start Last Admin Trade Name Freq PRN Reason Stop Dose Admin Aspirin 81 mg 01/15/17 10:00 01/17/17 10:04 Ecotrin - PO 81 mg DAILY JALIL Administration Clopidogrel Bisulfate 75 mg 01/15/17 10:00 01/17/17 10:04 Plavix - PO 75 mg DAILY JALIL Administration Docusate Sodium 100 mg 01/15/17 22:00 01/17/17 14:26 Colace - PO 100 mg TID JAILL Administration Ezetimibe 10 mg 01/16/17 10:00 01/17/17 10:04 Zetia - PO 10 mg DAILY JALIL Administration Gabapentin 100 mg 01/15/17 14:00 01/17/17 14:26 Neurontin - PO 100 mg TID JALIL Administration Insulin Aspart 1 vial 01/15/17 11:00 01/17/17 12:30 Novolog Vial Sliding Scale - SQ 8 units ACHS JALIL Administration Protocol Insulin Aspart 30 units 01/17/17 01:38 01/17/17 09:05 Novolog Mix 70/30 Vial SQ 30 units BIDAC JALIL Administration Lisinopril 5 mg 01/15/17 10:00 01/17/17 10:03 Prinivil PO 5 mg DAILY JALIL Administration Magnesium Hydroxide 30 ml 01/15/17 20:47 Milk Of Magnesia - PO DAILY PRN CONSTIPATION Metoprolol Succinate 25 mg 01/15/17 21:04 01/17/17 10:03 Toprol Xl - PO 25 mg DAILY [facility]ALIL Administration Rytary Er 61.25- 1 each 01/17/17 12:00 01/17/17 13:30 245mg-Patient's Own PO 1 each Medication (Non- 0700,1200,1700 [facility] Administration Formulary) Heeim-2-Zeee Ethyl Esters 2 gm 01/15/17 22:00 01/17/17 10:03 Lovaza - PO 2 gm BID JALIL Administration Ondansetron HCl 4 mg 01/15/17 07:15 Zofran Odt - SL Q6H PRN NAUSEA AND/OR VOMITING Pantoprazole Sodium 40 mg 01/15/17 10:00 01/17/17 10:03 Protonix - PO 40 mg DAILY [facility] Administration Rosuvastatin Calcium 20 mg 01/15/17 21:00 Crestor - PO Q48H [facility] Sitagliptin Phosphate 50 mg 01/16/17 08:45 01/17/17 06:36 Januvia - PO Not Given DAILY@0700 [facility] Impression 1. JOSSELYN 2. HTN 3. chest pain 4. DM 5. hematuria Plan - renal function is improving - urology input appreciated - cont current meds - blood pressure is improved - cont lisinopril - will follow Dr Beckford
[2017-01-17] MEDS ORDERED: LORazepam 1 MG TABLET PO ONE (19:00)
[2017-01-17] MEDS ORDERED: LORazepam 2 MG/ML SDV VIAL IVPUSH ONE (19:00)
[2017-01-17] MEDS ORDERED: PT OWN MED DRAWER 7, Y5N ONE (19:32)
[2017-01-18] MEDS: sitaGLIPtin PHOSPHATE 50 MG TABLET PO SCH (06:24)
[2017-01-18] MEDS: INSULIN (NOVOLOG MIX 70/30) 100 UNITS/ML MDV SQ SCH ×2 (06:24→16:26)
[2017-01-18] MEDS: GABAPENTIN 100 MG CAPSULE (FP) PO SCH ×3 (06:24→21:52)
[2017-01-18] MEDS: DOCUSATE SODIUM 100 MG CAPSULE (FP) PO SCH ×3 (06:24→21:51)
[2017-01-18] MEDS: INSULIN SLIDING SCALE (NOVOLOG) 1 VIAL SQ SCH ×4 (06:25→21:54)
[2017-01-18] MEDS: RYTARY PO SCH ×3 (06:46→16:46)
[2017-01-18 07:37] LABS: GLUCOSE,RANDOM 217 mg/dL (74-106)
[2017-01-18 07:39] LABS: ANION GAP 8 (8-16); CALCIUM 8.8 mg/dL (8.5-10.1); CO2 25 mmol/L (21-32); CREATININE 1.4 mg/dL (0.7-1.3)
--- NOTE | 2017-01-18 08:31 | CON.GU ---
Consult Consult Specialty:: urology Referred by:: Sarina Reason for Consultation:: gross hematuria - History of Present Illness Chief Complaint: gross hematuria History of Present Illness: Patient is an 81 yo male with history of bph s/p turp 3 years ago who developed gross hematuria. The patient denies passage of clots, fever, chills, significant dysuria, frequency, urgency, nocturia, incontinence, or flank pain. The patient is voiding well and has no appreciable change in flow or sense of incomplete voiding. 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 Cardio/Vascular: Yes: CAD, HTN, Hyperlipdemia Gastrointestinal: Yes: Constipation Renal/: Yes: BPH, Other Endocrine: Yes: Diabetes Mellitus - Alcohol/Substance Use Hx Alcohol Use: No - Smoking History Smoking history: Former smoker Have you smoked in the past 12 months: No Home Medications - Allergies Allergies/Adverse Reactions: Allergies Allergy/AdvReac Type Severity Reaction Status Date / Time No Known Drug Allergies Allergy Verified 01/15/17 01:38 - Home Medications Home Medications: Ambulatory Orders Gabapentin 100 mg PO BID 07/05/14 Sitagliptin Phosphate [Januvia] 100 mg PO DAILY 07/05/14 Insulin Lispro Protamin/Lispro [Humalog Mix 50-50 Vial] 0 unit SQ DAILY #0 03/22 Aspirin [ASA -] 81 mg PO DAILY 03/06/16 Carbidopa/Levodopa [Rytary ER 61.25 mg-245 mg Cap] 1 each PO DAILY 03/06/16 Clopidogrel Bisulfate [Plavix -] 75 mg PO DAILY 03/06/16 Docusate Sodium [Stool Softener] 50 mg PO TID 03/06/16 Ergocalciferol (Vitamin D2) [Vitamin D2] 2,000 unit PO DAILY 03/06/16 Esomeprazole Magnesium [Nexium 24Hr] 40 mg PO DAILY 03/06/16 Linaclotide [Linzess] 145 mcg PO DAILY 03/06/16 Lisinopril 5 mg PO DAILY 03/06/16 Methylcellulose [Fiber Therapy] 500 mg PO DAILY 03/06/16 Mirabegron [Myrbetriq] 50 mg PO DAILY 03/06/16 Rosuvastatin Calcium [Crestor] 5 mg PO DAILY 03/06/16 Physical Exam- Vital Signs: Vital Signs Temperature 98.6 F 01/18/17 06:00 Pulse Rate 69 01/18/17 06:00 Respiratory Rate 20 01/18/17 06:00 Blood Pressure 137/61 01/18/17 06:00 O2 Sat by Pulse Oximetry (%) 98 01/17/17 21:00 Constitutional: Yes: Well Nourished, No Distress, Calm Eyes: Yes: WNL, Conjunctiva Clear, EOM Intact HENT: Yes: WNL, Atraumatic, Normocephalic Neck: Yes: WNL, Supple, Trachea Midline Cardiovascular: Yes: Regular Rate and Rhythm Respiratory: Yes: WNL Gastrointestinal: Yes: WNL, Normal Bowel Sounds, Soft Renal/: Yes: WNL Kidneys: Yes: WNL Pelvis: Yes: Bladder Non Palpable Testicles: Yes: WNL Scrotum: Yes: WNL Penis: Yes: WNL (prostate is enlarged and irregular consistent with prior turp) Labs: CBC, BMP 01/18/17 05:10 Imaging - Results Ultrasound: Report Reviewed (post void volume is not significant; no significant pathology noted) Assessment/Plan imp gross hematuria bph plan start flomax 0.4 mg daily will follow up as outpatient for CT scan and possible cystoscopy if cardiac risk is acceptable or if hematuria gets worse consider stopping ASA and plavix discsussed with patient x25 minutes
[2017-01-18 08:52] LABS: ALBUMIN 2.5 g/dl (3.4-5.0); ALK PHOS 358 U/L (45-117); BILIRUBIN,DIRECT 1.4 mg/dL (0.0-0.2); BILIRUBIN,TOTAL 1.9 mg/dL (0.2-1.0); SGOT/AST 92 U/L (15-37); SGPT/ALT 35 U/L (12-78); TOT PROT 7.5 g/dl (6.4-8.2)
--- NOTE | 2017-01-18 09:04 | PN ---
Progress Note, Physician History of Present Illness: S/P FALL THIS AM SLIPPED OUT OF BED NO CP OR SOB NO ABD PAIN - Current Medication List Current Medications: Active Medications Aspirin (Ecotrin -) 81 mg PO DAILY [facility] Last Admin: 01/17/17 10:04 Dose: 81 mg Clopidogrel Bisulfate (Plavix -) 75 mg PO DAILY [facility] Last Admin: 01/17/17 10:04 Dose: 75 mg Docusate Sodium (Colace -) 100 mg PO TID [facility] Last Admin: 01/18/17 06:24 Dose: 100 mg Ezetimibe (Zetia -) 10 mg PO DAILY [facility] Last Admin: 01/17/17 10:04 Dose: 10 mg Gabapentin (Neurontin -) 100 mg PO TID [facility] Last Admin: 01/18/17 06:24 Dose: 100 mg Insulin Aspart (Novolog Vial Sliding Scale -) 1 vial SQ ACHS [facility] PRN Reason: Protocol Last Admin: 01/18/17 06:25 Dose: 4 units Insulin Aspart (Novolog Mix 70/30 Vial) 30 units SQ BIDAC [facility] Last Admin: 01/18/17 06:24 Dose: 30 units Lisinopril (Prinivil) 5 mg PO DAILY [facility] Last Admin: 01/17/17 10:03 Dose: 5 mg Magnesium Hydroxide (Milk Of Magnesia -) 30 ml PO DAILY PRN PRN Reason: CONSTIPATION Metoprolol Succinate (Toprol Xl -) 25 mg PO DAILY [facility] Last Admin: 01/17/17 10:03 Dose: 25 mg Rytary Er 61.25- 245mg-Patient's Own Medication (Non- Formulary) 1 each PO 0700 ,1200,1700 [facility] Last Admin: 01/18/17 06:46 Dose: 1 each Pyggj-1-Gyvu Ethyl Esters (Lovaza -) 2 gm PO BID [facility] Last Admin: 01/17/17 21:42 Dose: 2 gm Ondansetron HCl (Zofran Odt -) 4 mg SL Q6H PRN PRN Reason: NAUSEA AND/OR VOMITING Pantoprazole Sodium (Protonix -) 40 mg PO DAILY [facility] Last Admin: 01/17/17 10:03 Dose: 40 mg Rosuvastatin Calcium (Crestor -) 20 mg PO Q48H [facility] Sitagliptin Phosphate (Januvia -) 50 mg PO DAILY@0700 [facility] Last Admin: 01/18/17 06:24 Dose: 50 mg - Objective Vital Signs: Vital Signs Temperature 98.6 F 01/18/17 06:00 Pulse Rate 69 01/18/17 06:00 Respiratory Rate 20 01/18/17 06:00 Blood Pressure 137/61 01/18/17 06:00 O2 Sat by Pulse Oximetry (%) 98 01/17/17 21:00 Cardiovascular: Yes: Regular Rate and Rhythm Respiratory: Yes: Regular, CTA Bilaterally Gastrointestinal: Yes: Normal Bowel Sounds, Soft. No: Tenderness Extremities: Yes: Other (MINIMAL TENDERNES OF RT HIP) Labs: CBC, BMP 01/18/17 05:10 INR, PTT INR 1.27 (0.82-1.09) H 01/15/17 02:30 Assessment/Plan - Problems (1) JOSSELYN (acute kidney injury) Assessment/Plan: -renal consult -IV fluids -avoid nephrotoxic drugs -drugs to be dosed according to CrCl -decrease Januvia to 50 mg po daily Code(s): N17.9 - ACUTE KIDNEY FAILURE, UNSPECIFIED (2) Chest pain Assessment/Plan: -cardiology consult--f/u noted -EKG -stress test positive for ischemia-- discussed with cardio no cath medical management -echo -telemetry Code(s): R07.9 - CHEST PAIN, UNSPECIFIED (3) Elevated liver enzymes Assessment/Plan: -patient aymptomatic -seen by GI consult -on Crestor -Zetia 10 mg po daily -U/S abdomen hepatic steatosis--MRCP and CA19-9 -monitor labs in AM Code(s): R74.8 - ABNORMAL LEVELS OF OTHER SERUM ENZYMES (4) Hematuria Assessment/Plan: -Urology consult -UA/UC Code(s): R31.9 - HEMATURIA, UNSPECIFIED (5) Hypertension Assessment/Plan: -managed by cardiology -better controlled -on Fernando and B-gladys Code(s): I10 - ESSENTIAL (PRIMARY) HYPERTENSION (6) CAD (coronary artery disease) Assessment/Plan: -on asa/plavix -statin -BB/fernando Code(s): I25.10 - ATHSCL HEART DISEASE OF [place] CORONARY ARTERY W/O ANG PCTRS (7) Diabetes mellitus, insulin dependent (IDDM), uncontrolled Assessment/Plan: -uncontrolled with HgA1c at 9.6 -endocrinology consult -BGM AC HS -novolog 70/30 increased -Insulin sliding scale-- -Januvia decreased to 50 mg because of creatinine clearance Code(s): E10.65 - TYPE 1 DIABETES MELLITUS WITH HYPERGLYCEMIA (8) Parkinson disease Assessment/Plan: -Chronic -on Rytary- may use his own medication -to be seen by Neurology -unsteady gait -Physical therapy Code(s): G20 - PARKINSON'S DISEASE (9) Fall Assessment/Plan: -XRAY -PT EVAL
[2017-01-18] MEDS: CLOPIDOGREL BISULFATE 75 MG TABLET (FP) PO SCH (11:16)
[2017-01-18] MEDS: OMEGA-3 ACID ETHYL ESTERS (FATTY-ACIDS) 1 GM CAPSULE (FP) PO SCH ×2 (11:16→21:52)
[2017-01-18] MEDS: PANTOPRAZOLE 40 MG TABLET (FP) PO SCH (11:16)
[2017-01-18] MEDS: ASPIRIN COATED 81 MG TABLET.EC PO SCH (11:16)
[2017-01-18] MEDS: LISINOPRIL 5 MG TABLET (FP) PO SCH (11:17)
[2017-01-18] MEDS: EZETIMIBE 10 MG TABLET (FP) PO SCH (11:17)
[2017-01-18] MEDS: METOPROLOL SUCCINATE 25 MG TAB.SR.24H (FP) PO SCH (11:17)
--- NOTE | 2017-01-18 14:36 | PN ---
Progress Note, Physician History of Present Illness: Pt seen and examined at bedside. He is awake and alert. He fell down this morning. He denies chest pain or shortness of breath. - Current Medication List Current Medications: Active Medications Aspirin (Ecotrin -) 81 mg PO DAILY [facility] Last Admin: 01/18/17 11:16 Dose: 81 mg Clopidogrel Bisulfate (Plavix -) 75 mg PO DAILY [facility] Last Admin: 01/18/17 11:16 Dose: 75 mg Docusate Sodium (Colace -) 100 mg PO TID [facility] Last Admin: 01/18/17 06:24 Dose: 100 mg Ezetimibe (Zetia -) 10 mg PO DAILY [facility] Last Admin: 01/18/17 11:17 Dose: 10 mg Gabapentin (Neurontin -) 100 mg PO TID [facility] Last Admin: 01/18/17 06:24 Dose: 100 mg Insulin Aspart (Novolog Vial Sliding Scale -) 1 vial SQ ACHS [facility] PRN Reason: Protocol Last Admin: 01/18/17 11:22 Dose: 8 units Insulin Aspart (Novolog Mix 70/30 Vial) 30 units SQ BIDAC [facility] Last Admin: 01/18/17 06:24 Dose: 30 units Lisinopril (Prinivil) 5 mg PO DAILY [facility] Last Admin: 01/18/17 11:17 Dose: 5 mg Magnesium Hydroxide (Milk Of Magnesia -) 30 ml PO DAILY PRN PRN Reason: CONSTIPATION Metoprolol Succinate (Toprol Xl -) 25 mg PO DAILY [facility] Last Admin: 01/18/17 11:17 Dose: 25 mg Rytary Er 61.25- 245mg-Patient's Own Medication (Non- Formulary) 1 each PO 0700 ,1200,1700 [facility] Last Admin: 01/18/17 11:23 Dose: 1 each Eddmn-6-Ljxh Ethyl Esters (Lovaza -) 2 gm PO BID [facility] Last Admin: 01/18/17 11:16 Dose: 2 gm Ondansetron HCl (Zofran Odt -) 4 mg SL Q6H PRN PRN Reason: NAUSEA AND/OR VOMITING Pantoprazole Sodium (Protonix -) 40 mg PO DAILY [facility] Last Admin: 01/18/17 11:16 Dose: 40 mg Rosuvastatin Calcium (Crestor -) 20 mg PO Q48H [facility] Sitagliptin Phosphate (Januvia -) 50 mg PO DAILY@0700 [facility] Last Admin: 01/18/17 06:24 Dose: 50 mg - Objective Vital Signs: Vital Signs Temperature 98.4 F 01/18/17 14:00 Pulse Rate 72 01/18/17 14:00 Respiratory Rate 20 01/18/17 14:00 Blood Pressure 135/74 01/18/17 14:00 O2 Sat by Pulse Oximetry (%) 95 01/18/17 08:00 Constitutional: Yes: Calm Eyes: Yes: Conjunctiva Clear HENT: Yes: Atraumatic Cardiovascular: Yes: S1, S2 Respiratory: Yes: CTA Bilaterally Gastrointestinal: Yes: Soft Genitourinary: Yes: WNL Edema: No Neurological: Yes: Oriented Psychiatric: Yes: Oriented Labs: CBC, BMP 01/18/17 05:10 INR, PTT INR 1.27 (0.82-1.09) H 01/15/17 02:30 Problem List - Problems (1) Chest pain Code(s): R07.9 - CHEST PAIN, UNSPECIFIED (2) Diabetes Code(s): E11.9 - TYPE 2 DIABETES MELLITUS WITHOUT COMPLICATIONS (3) Hematuria Code(s): R31.9 - HEMATURIA, UNSPECIFIED (4) Hypertension Code(s): I10 - ESSENTIAL (PRIMARY) HYPERTENSION (5) CAD (coronary artery disease) Code(s): I25.10 - ATHSCL HEART DISEASE OF [place] CORONARY ARTERY W/O ANG PCTRS (6) Diabetes mellitus, insulin dependent (IDDM), uncontrolled Code(s): E10.65 - TYPE 1 DIABETES MELLITUS WITH HYPERGLYCEMIA (7) JOSSELYN (acute kidney injury) Code(s): N17.9 - ACUTE KIDNEY FAILURE, UNSPECIFIED Assessment/Plan Current Medications Generic Name Dose Route Start Last Admin Trade Name Jeanq PRN Reason Stop Dose Admin Aspirin 81 mg 01/15/17 10:00 01/18/17 11:16 Ecotrin - PO 81 mg DAILY JALIL Administration Clopidogrel Bisulfate 75 mg 01/15/17 10:00 01/18/17 11:16 Plavix - PO 75 mg DAILY JALIL Administration Docusate Sodium 100 mg 01/15/17 22:00 01/18/17 06:24 Colace - PO 100 mg TID JALIL Administration Ezetimibe 10 mg 01/16/17 10:00 01/18/17 11:17 Zetia - PO 10 mg DAILY JALIL Administration Gabapentin 100 mg 01/15/17 14:00 01/18/17 06:24 Neurontin - PO 100 mg TID JALIL Administration Insulin Aspart 1 vial 01/15/17 11:00 01/18/17 11:22 Novolog Vial Sliding Scale - SQ 8 units ACHS JALIL Administration Protocol Insulin Aspart 30 units 01/17/17 01:38 01/18/17 06:24 Novolog Mix 70/30 Vial SQ 30 units BIDAC JALIL Administration Lisinopril 5 mg 01/15/17 10:00 01/18/17 11:17 Prinivil PO 5 mg DAILY JALIL Administration Magnesium Hydroxide 30 ml 01/15/17 20:47 Milk Of Magnesia - PO DAILY PRN CONSTIPATION Metoprolol Succinate 25 mg 01/15/17 21:04 01/18/17 11:17 Toprol Xl - PO 25 mg DAILY JALIL Administration Rytary Er 61.25- 1 each 01/17/17 12:00 01/18/17 11:23 245mg-Patient's Own PO 1 each Medication (Non- 0700,1200,1700 JALIL Administration Formulary) Zjunr-5-Blqo Ethyl Esters 2 gm 01/15/17 22:00 01/18/17 11:16 Lovaza - PO 2 gm BID JALIL Administration Ondansetron HCl 4 mg 01/15/17 07:15 Zofran Odt - SL Q6H PRN NAUSEA AND/OR VOMITING Pantoprazole Sodium 40 mg 01/15/17 10:00 01/18/17 11:16 Protonix - PO 40 mg DAILY JALIL Administration Rosuvastatin Calcium 20 mg 01/15/17 21:00 Crestor - PO Q48H [facility] Sitagliptin Phosphate 50 mg 01/16/17 08:45 01/18/17 06:24 Januvia - PO 50 mg DAILY@0700 JALIL Administration Impression 1. JOSSELYN 2. HTN 3. chest pain 4. DM 5. hematuria Plan - will follow as outpt - urology input appreciated - pt to be started on flomax, will order - blood pressure is improved - cont lisinopril - will follow Dr Beckford
[2017-01-19] MEDS: DOCUSATE SODIUM 100 MG CAPSULE (FP) PO SCH ×3 (06:11→22:23)
[2017-01-19] MEDS: GABAPENTIN 100 MG CAPSULE (FP) PO SCH ×3 (06:11→22:23)
[2017-01-19] MEDS: sitaGLIPtin PHOSPHATE 50 MG TABLET PO SCH (06:24)
[2017-01-19] MEDS: INSULIN SLIDING SCALE (NOVOLOG) 1 VIAL SQ SCH ×4 (06:26→22:23)
[2017-01-19] MEDS: RYTARY PO SCH ×3 (06:27→17:39)
[2017-01-19] MEDS: INSULIN (NOVOLOG MIX 70/30) 100 UNITS/ML MDV SQ SCH (06:31)
[2017-01-19 08:12] LABS: ANION GAP 8 (8-16); CALCIUM 8.9 mg/dL (8.5-10.1); CO2 27 mmol/L (21-32); CREATININE 1.6 mg/dL (0.7-1.3); GLUCOSE,RANDOM 275 mg/dL (74-106)
[2017-01-19] MEDS: CLOPIDOGREL BISULFATE 75 MG TABLET (FP) PO SCH (09:00)
[2017-01-19] MEDS: LISINOPRIL 5 MG TABLET (FP) PO SCH (09:00)
[2017-01-19] MEDS: ASPIRIN COATED 81 MG TABLET.EC PO SCH (09:00)
[2017-01-19] MEDS: OMEGA-3 ACID ETHYL ESTERS (FATTY-ACIDS) 1 GM CAPSULE (FP) PO SCH ×2 (09:00→22:23)
[2017-01-19] MEDS: PANTOPRAZOLE 40 MG TABLET (FP) PO SCH (09:00)
[2017-01-19] MEDS: METOPROLOL SUCCINATE 25 MG TAB.SR.24H (FP) PO SCH (09:01)
[2017-01-19] MEDS: TAMSULOSIN HCL 0.4 MG CAP.ER.24H (FP) PO SCH (09:01)
[2017-01-19] MEDS: EZETIMIBE 10 MG TABLET (FP) PO SCH (09:01)
[2017-01-19] MEDS ORDERED: INSULIN (NOVOLOG MIX 70/30) 100 UNITS/ML MDV SQ SCH (11:17)
--- NOTE | 2017-01-19 11:20 | PN ---
Progress Note, Physician History of Present Illness: S/P FALL --CT DONE SLIPPED OUT OF BED NO CP OR SOB NO ABD PAIN - Current Medication List Current Medications: Active Medications Aspirin (Ecotrin -) 81 mg PO DAILY [facility] Last Admin: 01/19/17 09:00 Dose: 81 mg Clopidogrel Bisulfate (Plavix -) 75 mg PO DAILY [facility] Last Admin: 01/19/17 09:00 Dose: 75 mg Docusate Sodium (Colace -) 100 mg PO TID [facility] Last Admin: 01/19/17 06:11 Dose: 100 mg Ezetimibe (Zetia -) 10 mg PO DAILY [facility] Last Admin: 01/19/17 09:01 Dose: 10 mg Gabapentin (Neurontin -) 100 mg PO TID [facility] Last Admin: 01/19/17 06:11 Dose: 100 mg Insulin Aspart (Novolog Vial Sliding Scale -) 1 vial SQ ACHS [facility] PRN Reason: Protocol Last Admin: 01/19/17 06:26 Dose: 6 units Insulin Aspart (Novolog Mix 70/30 Vial) 30 units SQ BIDAC [facility] Last Admin: 01/19/17 06:31 Dose: 30 units Lisinopril (Prinivil) 5 mg PO DAILY [facility] Last Admin: 01/19/17 09:00 Dose: 5 mg Magnesium Hydroxide (Milk Of Magnesia -) 30 ml PO DAILY PRN PRN Reason: CONSTIPATION Metoprolol Succinate (Toprol Xl -) 25 mg PO DAILY [facility] Last Admin: 01/19/17 09:01 Dose: 25 mg Rytary Er 61.25- 245mg-Patient's Own Medication (Non- Formulary) 1 each PO 0700 ,1200,1700 [facility] Last Admin: 01/19/17 06:27 Dose: 1 each Zeeqp-9-Pjce Ethyl Esters (Lovaza -) 2 gm PO BID [facility] Last Admin: 01/19/17 09:00 Dose: 2 gm Ondansetron HCl (Zofran Odt -) 4 mg SL Q6H PRN PRN Reason: NAUSEA AND/OR VOMITING Pantoprazole Sodium (Protonix -) 40 mg PO DAILY [facility] Last Admin: 01/19/17 09:00 Dose: 40 mg Rosuvastatin Calcium (Crestor -) 20 mg PO Q48H [facility] Sitagliptin Phosphate (Januvia -) 50 mg PO DAILY@0700 [facility] Last Admin: 01/19/17 06:24 Dose: 50 mg Tamsulosin HCl (Flomax -) 0.4 mg PO DAILY@0830 [facility] Last Admin: 01/19/17 09:01 Dose: 0.4 mg - Objective Vital Signs: Vital Signs Temperature 98.2 F 01/19/17 10:00 Pulse Rate 79 01/19/17 10:00 Respiratory Rate 20 01/19/17 10:00 Blood Pressure 130/73 01/19/17 10:00 O2 Sat by Pulse Oximetry (%) 97 01/18/17 21:00 Cardiovascular: Yes: Regular Rate and Rhythm Respiratory: Yes: Regular, CTA Bilaterally Gastrointestinal: Yes: Normal Bowel Sounds, Soft Labs: CBC, BMP 01/19/17 05:18 INR, PTT INR 1.27 (0.82-1.09) H 01/15/17 02:30 Assessment/Plan - Problems (1) JOSSELYN (acute kidney injury) Assessment/Plan: -renal consult -HOLD ANGELITO AND REPEAT -avoid nephrotoxic drugs -drugs to be dosed according to CrCl -decrease Januvia to 50 mg po daily Code(s): N17.9 - ACUTE KIDNEY FAILURE, UNSPECIFIED (2) Chest pain Assessment/Plan: -cardiology consult--f/u noted -EKG -stress test positive for ischemia-- discussed with cardio no cath medical management -echo -telemetry Code(s): R07.9 - CHEST PAIN, UNSPECIFIED (3) Elevated liver enzymes Assessment/Plan: -patient aymptomatic -seen by GI consult -on Crestor -Zetia 10 mg po daily -U/S abdomen hepatic steatosis--MRCP --SLUDGE -monitor labs in AM Code(s): R74.8 - ABNORMAL LEVELS OF OTHER SERUM ENZYMES (4) Hematuria Assessment/Plan: -RESOLVED -Urology consult -UA/UC Code(s): R31.9 - HEMATURIA, UNSPECIFIED (5) Hypertension Assessment/Plan: -better controlled -on B-gladys -OFF ANGELITO DUE TO RENAL FUNCTION Code(s): I10 - ESSENTIAL (PRIMARY) HYPERTENSION (6) CAD (coronary artery disease) Assessment/Plan: -on asa/plavix -statin -BB/angelito Code(s): I25.10 - ATHSCL HEART DISEASE OF [place] CORONARY ARTERY W/O ANG PCTRS (7) Diabetes mellitus, insulin dependent (IDDM), uncontrolled Assessment/Plan: -uncontrolled with HgA1c at 9.6 -endocrinology consult -BGM AC HS -novolog 70/30 increased -Insulin sliding scale-- -Januvia decreased to 50 mg because of creatinine clearance Code(s): E10.65 - TYPE 1 DIABETES MELLITUS WITH HYPERGLYCEMIA (8) Parkinson disease Assessment/Plan: -Chronic -on Rytary- may use his own medication -to be seen by Neurology -unsteady gait -Physical therapy Code(s): G20 - PARKINSON'S DISEASE (9) Fall Assessment/Plan: -XRAY -PT EVAL
--- NOTE | 2017-01-19 13:53 | PN ---
Progress Note, Physician History of Present Illness: Pt seen and examined at bedside. He denies shortness of breath. - Current Medication List Current Medications: Active Medications Aspirin (Ecotrin -) 81 mg PO DAILY [facility] Last Admin: 01/19/17 09:00 Dose: 81 mg Clopidogrel Bisulfate (Plavix -) 75 mg PO DAILY [facility] Last Admin: 01/19/17 09:00 Dose: 75 mg Docusate Sodium (Colace -) 100 mg PO TID [facility] Last Admin: 01/19/17 06:11 Dose: 100 mg Ezetimibe (Zetia -) 10 mg PO DAILY [facility] Last Admin: 01/19/17 09:01 Dose: 10 mg Gabapentin (Neurontin -) 100 mg PO TID [facility] Last Admin: 01/19/17 06:11 Dose: 100 mg Insulin Aspart (Novolog Vial Sliding Scale -) 1 vial SQ ACHS [facility] PRN Reason: Protocol Last Admin: 01/19/17 12:25 Dose: 10 units Insulin Aspart (Novolog Mix 70/30 Vial) 35 units SQ BIDAC [facility] Magnesium Hydroxide (Milk Of Magnesia -) 30 ml PO DAILY PRN PRN Reason: CONSTIPATION Metoprolol Succinate (Toprol Xl -) 25 mg PO DAILY [facility] Last Admin: 01/19/17 09:01 Dose: 25 mg Rytary Er 61.25- 245mg-Patient's Own Medication (Non- Formulary) 1 each PO 0700 ,1200,1700 [facility] Last Admin: 01/19/17 12:25 Dose: 1 each Gaprr-1-Ihju Ethyl Esters (Lovaza -) 2 gm PO BID [facility] Last Admin: 01/19/17 09:00 Dose: 2 gm Ondansetron HCl (Zofran Odt -) 4 mg SL Q6H PRN PRN Reason: NAUSEA AND/OR VOMITING Pantoprazole Sodium (Protonix -) 40 mg PO DAILY [facility] Last Admin: 01/19/17 09:00 Dose: 40 mg Rosuvastatin Calcium (Crestor -) 20 mg PO Q48H [facility] Sitagliptin Phosphate (Januvia -) 50 mg PO DAILY@0700 [facility] Last Admin: 01/19/17 06:24 Dose: 50 mg Tamsulosin HCl (Flomax -) 0.4 mg PO DAILY@0830 [facility] Last Admin: 01/19/17 09:01 Dose: 0.4 mg - Objective Vital Signs: Vital Signs Temperature 98.2 F 01/19/17 10:00 Pulse Rate 79 01/19/17 10:00 Respiratory Rate 20 01/19/17 10:00 Blood Pressure 130/73 01/19/17 10:00 O2 Sat by Pulse Oximetry (%) 97 01/18/17 21:00 Constitutional: Yes: Calm Eyes: Yes: Conjunctiva Clear HENT: Yes: Atraumatic Cardiovascular: Yes: S1, S2 Respiratory: Yes: CTA Bilaterally Gastrointestinal: Yes: Normal Bowel Sounds, Soft Genitourinary: Yes: WNL Musculoskeletal: Yes: WNL Edema: Yes Edema: LLE: Trace, RLE: Trace Neurological: Yes: Oriented Psychiatric: Yes: Oriented Labs: CBC, BMP 01/19/17 05:18 INR, PTT INR 1.27 (0.82-1.09) H 01/15/17 02:30 Problem List - Problems (1) Chest pain Code(s): R07.9 - CHEST PAIN, UNSPECIFIED (2) Diabetes Code(s): E11.9 - TYPE 2 DIABETES MELLITUS WITHOUT COMPLICATIONS (3) Hematuria Code(s): R31.9 - HEMATURIA, UNSPECIFIED (4) Hypertension Code(s): I10 - ESSENTIAL (PRIMARY) HYPERTENSION (5) CAD (coronary artery disease) Code(s): I25.10 - ATHSCL HEART DISEASE OF [place] CORONARY ARTERY W/O ANG PCTRS (6) Diabetes mellitus, insulin dependent (IDDM), uncontrolled Code(s): E10.65 - TYPE 1 DIABETES MELLITUS WITH HYPERGLYCEMIA (7) JOSSELYN (acute kidney injury) Code(s): N17.9 - ACUTE KIDNEY FAILURE, UNSPECIFIED Assessment/Plan Current Medications Generic Name Dose Route Start Last Admin Trade Name Freq PRN Reason Stop Dose Admin Aspirin 81 mg 01/15/17 10:00 01/19/17 09:00 Ecotrin - PO 81 mg DAILY JALIL Administration Clopidogrel Bisulfate 75 mg 01/15/17 10:00 01/19/17 09:00 Plavix - PO 75 mg DAILY JALIL Administration Docusate Sodium 100 mg 01/15/17 22:00 01/19/17 06:11 Colace - PO 100 mg TID JALIL Administration Ezetimibe 10 mg 01/16/17 10:00 01/19/17 09:01 Zetia - PO 10 mg DAILY JALIL Administration Gabapentin 100 mg 01/15/17 14:00 01/19/17 06:11 Neurontin - PO 100 mg TID JALIL Administration Insulin Aspart 1 vial 01/15/17 11:00 01/19/17 12:25 Novolog Vial Sliding Scale - SQ 10 units ACHS JALIL Administration Protocol Insulin Aspart 35 units 01/19/17 11:17 Novolog Mix 70/30 Vial SQ BIDAC JALIL Magnesium Hydroxide 30 ml 01/15/17 20:47 Milk Of Magnesia - PO DAILY PRN CONSTIPATION Metoprolol Succinate 25 mg 01/15/17 21:04 01/19/17 09:01 Toprol Xl - PO 25 mg DAILY JALIL Administration Rytary Er 61.25- 1 each 01/17/17 12:00 01/19/17 12:25 245mg-Patient's Own PO 1 each Medication (Non- 0700,1200,1700 JALIL Administration Formulary) Ntfcx-7-Yavn Ethyl Esters 2 gm 01/15/17 22:00 01/19/17 09:00 Lovaza - PO 2 gm BID JALIL Administration Ondansetron HCl 4 mg 01/15/17 07:15 Zofran Odt - SL Q6H PRN NAUSEA AND/OR VOMITING Pantoprazole Sodium 40 mg 01/15/17 10:00 01/19/17 09:00 Protonix - PO 40 mg DAILY JALIL Administration Rosuvastatin Calcium 20 mg 01/15/17 21:00 Crestor - PO Q48H JALIL Sitagliptin Phosphate 50 mg 01/16/17 08:45 01/19/17 06:24 Januvia - PO 50 mg DAILY@0700 JALIL Administration Tamsulosin HCl 0.4 mg 01/19/17 08:30 01/19/17 09:01 Flomax - PO 0.4 mg DAILY@0830 JALIL Administration Impression 1. JOSSELYN 2. HTN 3. chest pain 4. DM 5. hematuria Plan - renal function worse today - will hold saniya - repeat labs in am - will need better glucose control - pt started on flomax - will follow Dr Beckford
[2017-01-20] MEDS: GABAPENTIN 100 MG CAPSULE (FP) PO SCH ×3 (07:13→22:15)
[2017-01-20] MEDS: DOCUSATE SODIUM 100 MG CAPSULE (FP) PO SCH ×3 (07:13→22:05)
[2017-01-20] MEDS: INSULIN (NOVOLOG MIX 70/30) 100 UNITS/ML MDV SQ SCH ×2 (07:13→17:42)
[2017-01-20] MEDS: INSULIN SLIDING SCALE (NOVOLOG) 1 VIAL SQ SCH ×4 (07:14→22:08)
[2017-01-20] MEDS: RYTARY PO SCH ×3 (07:14→17:43)
[2017-01-20] MEDS ORDERED: PT OWN MED DRAWER 7, Y5N ONE ×2 (07:27→18:06)
[2017-01-20] MEDS: TAMSULOSIN HCL 0.4 MG CAP.ER.24H (FP) PO SCH (08:18)
[2017-01-20 08:22] LABS: ALBUMIN 2.6 g/dl (3.4-5.0); ANION GAP 8 (8-16); CALCIUM 8.9 mg/dL (8.5-10.1); CO2 26 mmol/L (21-32); GLUCOSE,RANDOM 156 mg/dL (74-106)
[2017-01-20 08:28] LABS: ALK PHOS 359 U/L (45-117); BILIRUBIN,TOTAL 1.4 mg/dL (0.2-1.0); CREATININE 1.6 mg/dL (0.7-1.3); SGOT/AST 93 U/L (15-37); SGPT/ALT 27 U/L (12-78); TOT PROT 7.7 g/dl (6.4-8.2)
--- NOTE | 2017-01-20 09:17 | DS ---
Physical Examination Vital Signs: Vital Signs Temperature 98.2 F 01/20/17 06:00 Pulse Rate 75 01/20/17 06:00 Respiratory Rate 20 01/20/17 06:00 Blood Pressure 115/61 01/20/17 06:00 O2 Sat by Pulse Oximetry (%) 96 01/19/17 21:00 Labs: CBC, BMP 01/20/17 05:15 Discharge Summary Reason For Visit: CHEST PAIN HYPERTENSION HEMATURIA Current Active Problems JOSSELYN (acute kidney injury) (Acute) Chest pain (Acute) Diabetes (Acute) Elevated liver enzymes (Acute) Hematuria (Acute) Hypertension (Acute) Condition: Improved - Instructions Referrals: Samuel Moyer MD [Primary Care Provider] - 1 Week Disposition: VNS/HOME HEALTH CARE - Home Medications Comprehensive Discharge Medication List: Ambulatory Orders Gabapentin 100 mg PO BID 07/05/14 Insulin Lispro Protamin/Lispro [Humalog Mix 50-50 Vial] 0 unit SQ DAILY #0 03/22 Aspirin [ASA -] 81 mg PO DAILY 03/06/16 Carbidopa/Levodopa [Rytary ER 61.25 mg-245 mg Cap] 1 each PO DAILY 03/06/16 Clopidogrel Bisulfate [Plavix -] 75 mg PO DAILY 03/06/16 Docusate Sodium [Stool Softener] 50 mg PO TID 03/06/16 Ergocalciferol (Vitamin D2) [Vitamin D2] 2,000 unit PO DAILY 03/06/16 Esomeprazole Magnesium [Nexium 24Hr] 40 mg PO DAILY 03/06/16 Linaclotide [Linzess] 145 mcg PO DAILY 03/06/16 Lisinopril 5 mg PO DAILY 03/06/16 Methylcellulose [Fiber Therapy] 500 mg PO DAILY 03/06/16 Docusate Sodium [Colace -] 100 mg PO TID tab 01/20/17 Magnesium Hydrox 2400MG/30Ml [Milk of Magnesia -] 30 ml PO DAILY PRN #0 ml 01/20 Metoprolol Succinate [Toprol XL -] 25 mg PO DAILY #30 tab 01/20/17 [place]-3 Acid Ethyl Esters [Lovaza -] 2 gm PO BID cap 01/20/17 Rosuvastatin [Crestor -] 20 mg PO Q48H #30 tablet 01/20/17 Sitagliptin Phosphate [Januvia -] 50 mg PO DAILY@0700 #30 tablet 01/20/17 Tamsulosin HCl [Flomax -] 0.4 mg PO DAILY@0830 #30 tab 01/20/17
[2017-01-20] MEDS: OMEGA-3 ACID ETHYL ESTERS (FATTY-ACIDS) 1 GM CAPSULE (FP) PO SCH ×2 (11:47→22:05)
[2017-01-20] MEDS: EZETIMIBE 10 MG TABLET (FP) PO SCH (11:47)
[2017-01-20] MEDS: METOPROLOL SUCCINATE 25 MG TAB.SR.24H (FP) PO SCH (11:47)
[2017-01-20] MEDS: ASPIRIN COATED 81 MG TABLET.EC PO SCH (11:47)
[2017-01-20] MEDS: CLOPIDOGREL BISULFATE 75 MG TABLET (FP) PO SCH (11:47)
[2017-01-20] MEDS: PANTOPRAZOLE 40 MG TABLET (FP) PO SCH (11:47)
--- NOTE | 2017-01-20 16:56 | PN ---
Progress Note, Physician History of Present Illness: Pt seen and examined at bedside. He is awake and alert. He denies shortness of breath. - Current Medication List Current Medications: Active Medications Aspirin (Ecotrin -) 81 mg PO DAILY [facility] Last Admin: 01/20/17 11:47 Dose: 81 mg Clopidogrel Bisulfate (Plavix -) 75 mg PO DAILY [facility] Last Admin: 01/20/17 11:47 Dose: 75 mg Docusate Sodium (Colace -) 100 mg PO TID [facility] Last Admin: 01/20/17 13:36 Dose: 100 mg Ezetimibe (Zetia -) 10 mg PO DAILY [facility] Last Admin: 01/20/17 11:47 Dose: 10 mg Gabapentin (Neurontin -) 100 mg PO TID [facility] Last Admin: 01/20/17 13:36 Dose: 100 mg Insulin Aspart (Novolog Mix 70/30 Vial) 45 units SQ BIDAC [facility] Last Admin: 01/20/17 07:13 Dose: 45 units Insulin Aspart (Novolog Vial Sliding Scale -) 1 vial SQ ACHS [facility] PRN Reason: Protocol Last Admin: 01/20/17 11:48 Dose: 2 units Magnesium Hydroxide (Milk Of Magnesia -) 30 ml PO DAILY PRN PRN Reason: CONSTIPATION Metoprolol Succinate (Toprol Xl -) 25 mg PO DAILY [facility] Last Admin: 01/20/17 11:47 Dose: 25 mg Rytary Er 61.25- 245mg-Patient's Own Medication (Non- Formulary) 1 each PO 0700 ,1200,1700 [facility] Last Admin: 01/20/17 11:48 Dose: 1 each Wtqly-2-Tagu Ethyl Esters (Lovaza -) 2 gm PO BID [facility] Last Admin: 01/20/17 11:47 Dose: 2 gm Ondansetron HCl (Zofran Odt -) 4 mg SL Q6H PRN PRN Reason: NAUSEA AND/OR VOMITING Pantoprazole Sodium (Protonix -) 40 mg PO DAILY [facility] Last Admin: 01/20/17 11:47 Dose: 40 mg Rosuvastatin Calcium (Crestor -) 20 mg PO Q48H [facility] Tamsulosin HCl (Flomax -) 0.4 mg PO DAILY@0830 [facility] Last Admin: 01/20/17 08:18 Dose: 0.4 mg - Objective Vital Signs: Vital Signs Temperature 98.2 F 01/20/17 14:00 Pulse Rate 98 H 01/20/17 14:00 Respiratory Rate 20 01/20/17 10:00 Blood Pressure 133/81 01/20/17 14:00 O2 Sat by Pulse Oximetry (%) 98 01/20/17 09:00 Constitutional: Yes: Calm Eyes: Yes: Conjunctiva Clear HENT: Yes: Atraumatic Cardiovascular: Yes: S1, S2 Respiratory: Yes: CTA Bilaterally Gastrointestinal: Yes: Soft Genitourinary: Yes: WNL Musculoskeletal: Yes: WNL Edema: LLE: Trace, RLE: Trace Neurological: Yes: Oriented Psychiatric: Yes: Oriented Labs: CBC, BMP 01/20/17 05:15 INR, PTT INR 1.27 (0.82-1.09) H 01/15/17 02:30 Problem List - Problems (1) Chest pain Code(s): R07.9 - CHEST PAIN, UNSPECIFIED (2) Diabetes Code(s): E11.9 - TYPE 2 DIABETES MELLITUS WITHOUT COMPLICATIONS (3) Hematuria Code(s): R31.9 - HEMATURIA, UNSPECIFIED (4) Hypertension Code(s): I10 - ESSENTIAL (PRIMARY) HYPERTENSION (5) CAD (coronary artery disease) Code(s): I25.10 - ATHSCL HEART DISEASE OF [place] CORONARY ARTERY W/O ANG PCTRS (6) Diabetes mellitus, insulin dependent (IDDM), uncontrolled Code(s): E10.65 - TYPE 1 DIABETES MELLITUS WITH HYPERGLYCEMIA (7) JOSSELYN (acute kidney injury) Code(s): N17.9 - ACUTE KIDNEY FAILURE, UNSPECIFIED Assessment/Plan Current Medications Generic Name Dose Route Start Last Admin Trade Name Meenakshi PRN Reason Stop Dose Admin Aspirin 81 mg 01/15/17 10:00 01/20/17 11:47 Ecotrin - PO 81 mg DAILY JALIL Administration Clopidogrel Bisulfate 75 mg 01/15/17 10:00 01/20/17 11:47 Plavix - PO 75 mg DAILY JALIL Administration Docusate Sodium 100 mg 01/15/17 22:00 01/20/17 13:36 Colace - PO 100 mg TID JALIL Administration Ezetimibe 10 mg 01/16/17 10:00 01/20/17 11:47 Zetia - PO 10 mg DAILY JALIL Administration Gabapentin 100 mg 01/15/17 14:00 01/20/17 13:36 Neurontin - PO 100 mg TID JALIL Administration Insulin Aspart 45 units 01/20/17 01:15 01/20/17 07:13 Novolog Mix 70/30 Vial SQ 45 units BIDAC JALIL Administration Insulin Aspart 1 vial 01/20/17 01:16 01/20/17 11:48 Novolog Vial Sliding Scale - SQ 2 units ACHS JALIL Administration Protocol Magnesium Hydroxide 30 ml 01/15/17 20:47 Milk Of Magnesia - PO DAILY PRN CONSTIPATION Metoprolol Succinate 25 mg 01/15/17 21:04 01/20/17 11:47 Toprol Xl - PO 25 mg DAILY JALIL Administration Rytary Er 61.25- 1 each 01/17/17 12:00 01/20/17 11:48 245mg-Patient's Own PO 1 each Medication (Non- 0700,1200,1700 JALIL Administration Formulary) Jufyo-9-Bzal Ethyl Esters 2 gm 01/15/17 22:00 01/20/17 11:47 Lovaza - PO 2 gm BID JALIL Administration Ondansetron HCl 4 mg 01/15/17 07:15 Zofran Odt - SL Q6H PRN NAUSEA AND/OR VOMITING Pantoprazole Sodium 40 mg 01/15/17 10:00 01/20/17 11:47 Protonix - PO 40 mg DAILY JALIL Administration Rosuvastatin Calcium 20 mg 01/15/17 21:00 Crestor - PO Q48H JALIL Tamsulosin HCl 0.4 mg 01/19/17 08:30 01/20/17 08:18 Flomax - PO 0.4 mg DAILY@0830 JALIL Administration Impression 1. JOSSELYN 2. HTN 3. chest pain 4. DM 5. hematuria Plan - will see pt in office for workup - saniya held due to elevated creatinine - repeat labs in am - cont flomax - discussed with pts son - will follow Dr Beckford
[2017-01-21] MEDS: GABAPENTIN 100 MG CAPSULE (FP) PO SCH ×2 (06:18→13:55)
[2017-01-21] MEDS: DOCUSATE SODIUM 100 MG CAPSULE (FP) PO SCH ×2 (06:18→13:55)
[2017-01-21] MEDS: RYTARY PO SCH ×2 (06:19→11:43)
[2017-01-21] MEDS: INSULIN (NOVOLOG MIX 70/30) 100 UNITS/ML MDV SQ SCH (06:20)
[2017-01-21] MEDS: INSULIN SLIDING SCALE (NOVOLOG) 1 VIAL SQ SCH ×2 (06:22→11:42)
[2017-01-21 07:13] LABS: ANION GAP 11 (8-16); CALCIUM 8.9 mg/dL (8.5-10.1); CO2 22 mmol/L (21-32); CREATININE 1.7 mg/dL (0.7-1.3); GLUCOSE,RANDOM 201 mg/dL (74-106)
[2017-01-21] MEDS: TAMSULOSIN HCL 0.4 MG CAP.ER.24H (FP) PO SCH (09:17)
[2017-01-21] MEDS: CLOPIDOGREL BISULFATE 75 MG TABLET (FP) PO SCH (09:17)
[2017-01-21] MEDS: ASPIRIN COATED 81 MG TABLET.EC PO SCH (09:17)
[2017-01-21] MEDS: EZETIMIBE 10 MG TABLET (FP) PO SCH (09:18)
[2017-01-21] MEDS: METOPROLOL SUCCINATE 25 MG TAB.SR.24H (FP) PO SCH (09:18)
[2017-01-21] MEDS: OMEGA-3 ACID ETHYL ESTERS (FATTY-ACIDS) 1 GM CAPSULE (FP) PO SCH (09:18)
[2017-01-21] MEDS: PANTOPRAZOLE 40 MG TABLET (FP) PO SCH (09:18)
--- NOTE | 2017-01-21 09:55 | DS ---
Physical Examination Vital Signs: Vital Signs Temperature 98.3 F 01/21/17 06:00 Pulse Rate 71 01/21/17 06:00 Respiratory Rate 20 01/21/17 06:00 Blood Pressure 134/74 01/21/17 06:00 O2 Sat by Pulse Oximetry (%) 96 01/20/17 21:00 awake alert wants to go home Constitutional: Yes: Calm Neck: Yes: Trachea Midline Cardiovascular: Yes: Regular Rate and Rhythm, S1, S2 Respiratory: Yes: CTA Bilaterally Gastrointestinal: Yes: Normal Bowel Sounds, Soft Edema: Yes Neurological: Yes: Alert Labs: CBC, BMP 01/21/17 06:30 Discharge Summary Reason For Visit: CHEST PAIN HYPERTENSION HEMATURIA Current Active Problems JOSSELYN (acute kidney injury) (Acute) Chest pain (Acute) Diabetes (Acute) Elevated liver enzymes (Acute) Hematuria (Acute) Hypertension (Acute) Hospital Course: - Primary Care Physician PCP: Ko Seth - Admission Chief Complaint: HTN History of Present Illness: 81 y/o M with a PMHx of IDDM, HTN, HLD, prostate CA, stents presents to the ED with high BP tonight. The son took the patients BP 5 times, the highest being 200/95. Son gave the patient an extra dose of BP medication, but patients BP did not go down. On arrival, patient reports chest heaviness and hematuria. He states he has had hematuria for about 2 weeks but he was traveling so he ignored it. He also reports missing a couple doses of his Plavix the past two days because of travel. Patient reports left eye double vision. Denies dysuria, blood clots in urine. Denies SOB. Denies headache, dizziness. 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 Cardiovascular: Yes: CAD, HTN, Hyperlipdemia Gastrointestinal: Yes: Constipation Renal/: Yes: Other - Smoking History Smoking history: Former smoker Have you smoked in the past 12 months: No chest pain: stress test positive for ischemia per cardio no cath only medical managment hematuria fu with urology as outpatient for cystoscopy s/p fall hip and ct head normal family wants to take home no snf to go home with vns on abdomen MRI pancreatic cysts fu repeat MRI as outpatient no saniya given increase creatinine to follow up with renal Condition: Improved - Instructions Referrals: Samuel Moyer MD [Primary Care Provider] - 1 Week Disposition: VNS/HOME HEALTH CARE - Home Medications Comprehensive Discharge Medication List: Ambulatory Orders Gabapentin 100 mg PO BID 07/05/14 Insulin Lispro Protamin/Lispro [Humalog Mix 50-50 Vial] 0 unit SQ DAILY #0 03/22 Aspirin [ASA -] 81 mg PO DAILY 03/06/16 Carbidopa/Levodopa [Rytary ER 61.25 mg-245 mg Cap] 1 each PO DAILY 03/06/16 Clopidogrel Bisulfate [Plavix -] 75 mg PO DAILY 03/06/16 Docusate Sodium [Stool Softener] 50 mg PO TID 03/06/16 Ergocalciferol (Vitamin D2) [Vitamin D2] 2,000 unit PO DAILY 03/06/16 Esomeprazole Magnesium [Nexium 24Hr] 40 mg PO DAILY 03/06/16 Linaclotide [Linzess] 145 mcg PO DAILY 03/06/16 Lisinopril 5 mg PO DAILY 03/06/16 Methylcellulose [Fiber Therapy] 500 mg PO DAILY 03/06/16 Docusate Sodium [Colace -] 100 mg PO TID tab 01/20/17 Magnesium Hydrox 2400MG/30Ml [Milk of Magnesia -] 30 ml PO DAILY PRN #0 ml 01/20 Metoprolol Succinate [Toprol XL -] 25 mg PO DAILY #30 tab 01/20/17 [place]-3 Acid Ethyl Esters [Lovaza -] 2 gm PO BID cap 01/20/17 Rosuvastatin [Crestor -] 20 mg PO Q48H #30 tablet 01/20/17 Sitagliptin Phosphate [Januvia -] 50 mg PO DAILY@0700 #30 tablet 01/20/17 Tamsulosin HCl [Flomax -] 0.4 mg PO DAILY@0830 #30 tab 01/20/17
--- NOTE | 2017-01-21 13:20 | PN ---
Progress Note, Physician History of Present Illness: Pt seen and examined at bedside. He is awake and alert. He is eager to go home. - Current Medication List Current Medications: Active Medications Aspirin (Ecotrin -) 81 mg PO DAILY [facility] Last Admin: 01/21/17 09:17 Dose: 81 mg Clopidogrel Bisulfate (Plavix -) 75 mg PO DAILY [facility] Last Admin: 01/21/17 09:17 Dose: 75 mg Docusate Sodium (Colace -) 100 mg PO TID [facility] Last Admin: 01/21/17 06:18 Dose: 100 mg Ezetimibe (Zetia -) 10 mg PO DAILY [facility] Last Admin: 01/21/17 09:18 Dose: 10 mg Gabapentin (Neurontin -) 100 mg PO TID [facility] Last Admin: 01/21/17 06:18 Dose: 100 mg Insulin Aspart (Novolog Mix 70/30 Vial) 45 units SQ BIDAC [facility] Last Admin: 01/21/17 06:20 Dose: 45 units Insulin Aspart (Novolog Vial Sliding Scale -) 1 vial SQ ACHS [facility] PRN Reason: Protocol Last Admin: 01/21/17 11:42 Dose: 7 units Magnesium Hydroxide (Milk Of Magnesia -) 30 ml PO DAILY PRN PRN Reason: CONSTIPATION Metoprolol Succinate (Toprol Xl -) 25 mg PO DAILY [facility] Last Admin: 01/21/17 09:18 Dose: 25 mg Rytary Er 61.25- 245mg-Patient's Own Medication (Non- Formulary) 1 each PO 0700 ,1200,1700 [facility] Last Admin: 01/21/17 11:43 Dose: 1 each Mixuc-4-Yzgc Ethyl Esters (Lovaza -) 2 gm PO BID [facility] Last Admin: 01/21/17 09:18 Dose: 2 gm Ondansetron HCl (Zofran Odt -) 4 mg SL Q6H PRN PRN Reason: NAUSEA AND/OR VOMITING Pantoprazole Sodium (Protonix -) 40 mg PO DAILY [facility] Last Admin: 01/21/17 09:18 Dose: 40 mg Rosuvastatin Calcium (Crestor -) 20 mg PO Q48H [facility] Tamsulosin HCl (Flomax -) 0.4 mg PO DAILY@0830 [facility] Last Admin: 01/21/17 09:17 Dose: 0.4 mg - Objective Vital Signs: Vital Signs Temperature 98.5 F 01/21/17 10:00 Pulse Rate 76 01/21/17 10:00 Respiratory Rate 20 01/21/17 10:00 Blood Pressure 118/63 01/21/17 10:00 O2 Sat by Pulse Oximetry (%) 96 01/21/17 09:00 Constitutional: Yes: Calm Eyes: Yes: Conjunctiva Clear HENT: Yes: Atraumatic Neck: Yes: Supple Cardiovascular: Yes: S1, S2 Respiratory: Yes: CTA Bilaterally Gastrointestinal: Yes: Soft Genitourinary: Yes: WNL Musculoskeletal: Yes: WNL Edema: Yes Edema: LLE: Trace, RLE: Trace Neurological: Yes: Oriented Psychiatric: Yes: Oriented Labs: CBC, BMP 01/21/17 06:30 INR, PTT INR 1.27 (0.82-1.09) H 01/15/17 02:30 Problem List - Problems (1) Chest pain Code(s): R07.9 - CHEST PAIN, UNSPECIFIED (2) Diabetes Code(s): E11.9 - TYPE 2 DIABETES MELLITUS WITHOUT COMPLICATIONS (3) Hematuria Code(s): R31.9 - HEMATURIA, UNSPECIFIED (4) Hypertension Code(s): I10 - ESSENTIAL (PRIMARY) HYPERTENSION (5) CAD (coronary artery disease) Code(s): I25.10 - ATHSCL HEART DISEASE OF [place] CORONARY ARTERY W/O ANG PCTRS (6) Diabetes mellitus, insulin dependent (IDDM), uncontrolled Code(s): E10.65 - TYPE 1 DIABETES MELLITUS WITH HYPERGLYCEMIA (7) JOSSELYN (acute kidney injury) Code(s): N17.9 - ACUTE KIDNEY FAILURE, UNSPECIFIED Assessment/Plan Current Medications Generic Name Dose Route Start Last Admin Trade Name Meenakshi PRN Reason Stop Dose Admin Aspirin 81 mg 01/15/17 10:00 01/21/17 09:17 Ecotrin - PO 81 mg DAILY JALIL Administration Clopidogrel Bisulfate 75 mg 01/15/17 10:00 01/21/17 09:17 Plavix - PO 75 mg DAILY JALIL Administration Docusate Sodium 100 mg 01/15/17 22:00 01/21/17 06:18 Colace - PO 100 mg TID JALIL Administration Ezetimibe 10 mg 01/16/17 10:00 01/21/17 09:18 Zetia - PO 10 mg DAILY JALIL Administration Gabapentin 100 mg 01/15/17 14:00 01/21/17 06:18 Neurontin - PO 100 mg TID JALIL Administration Insulin Aspart 45 units 01/20/17 01:15 01/21/17 06:20 Novolog Mix 70/30 Vial SQ 45 units BIDAC JALIL Administration Insulin Aspart 1 vial 01/20/17 01:16 01/21/17 11:42 Novolog Vial Sliding Scale - SQ 7 units ACHS JALIL Administration Protocol Magnesium Hydroxide 30 ml 01/15/17 20:47 Milk Of Magnesia - PO DAILY PRN CONSTIPATION Metoprolol Succinate 25 mg 01/15/17 21:04 01/21/17 09:18 Toprol Xl - PO 25 mg DAILY JALIL Administration Rytary Er 61.25- 1 each 01/17/17 12:00 01/21/17 11:43 245mg-Patient's Own PO 1 each Medication (Non- 0700,1200,1700 JALIL Administration Formulary) Mlavy-7-Bjou Ethyl Esters 2 gm 01/15/17 22:00 01/21/17 09:18 Lovaza - PO 2 gm BID JALIL Administration Ondansetron HCl 4 mg 01/15/17 07:15 Zofran Odt - SL Q6H PRN NAUSEA AND/OR VOMITING Pantoprazole Sodium 40 mg 01/15/17 10:00 01/21/17 09:18 Protonix - PO 40 mg DAILY JALIL Administration Rosuvastatin Calcium 20 mg 01/15/17 21:00 Crestor - PO Q48H JALIL Tamsulosin HCl 0.4 mg 01/19/17 08:30 01/21/17 09:17 Flomax - PO 0.4 mg DAILY@0830 JALIL Administration Impression 1. JOSSELYN 2. HTN 3. chest pain 4. DM 5. hematuria Plan - discussed plan with pts son yesterday, he need further renal workup - will need to follow with urology for elevated PVR - repeat labs in am - saniya held secondary to rising creatinine - cont flomax - will follow Dr Beckford
[2017-01-21 15:14] VITALS: BP 137/73; PULSE 64; TEMP 97.9
== END 2017-01-21 15:39 | disposition home health service (06) | DRG 683 ==
LOC: JER 00:52 → JERBED 04:00 → UNDOADMOB 04:16 → JERBED 04:16 → J4W 14:11 → OBSVTOIN 01-16 14:00
PROVIDERS: ADMIT Family Medicine; ATTEND Family Medicine
DX: N17.9 Acute kidney failure, unspecified (principal); I67.4 Hypertensive encephalopathy; K86.2 Cyst of pancreas; E78.5 Hyperlipidemia, unspecified; H53.2 Diplopia; I25.10 Atherosclerotic heart disease of native coronary artery without angina pectoris; I10 Essential (primary) hypertension; R07.89 Other chest pain; N40.0 Benign prostatic hyperplasia without lower urinary tract symptoms; E11.42 Type 2 diabetes mellitus with diabetic polyneuropathy; E11.65 Type 2 diabetes mellitus with hyperglycemia; R33.8 Other retention of urine; R74.8 Abnormal levels of other serum enzymes; R31.0 Gross hematuria; K59.09 Other constipation; G20 Parkinson's disease; Z87.891 Personal history of nicotine dependence; Z85.46 Personal history of malignant neoplasm of prostate; Z79.4 Long term (current) use of insulin
CPT/HCPCS: 36415; 70450-TC; 70551-TC; 71010-TC; 73523-TC; 74181-TC; 76700-TC; 76856-TC; 78452-TC; 80048; 80053; 80061; 80076; 81003; 81015; 82436; 82550; 82553; 82570; 82947; 83036; 83721; 83735; 84133; 84156; 84300; 84484; 85025; 85610; 85730; 86301; 86850; 86900; 86901; 87086; 93005; 93010; 93017; 93306-TC; 93880-TC; 97116-GP; 97162-GP; 99283-25; A9502; G0378

== ENCOUNTER 2017-03-08 16:13 | Inpatient (IN) | payer MEDICARE, OTHER ==
--- NOTE | 2017-03-08 16:21 | PDOC ---
Rapid Medical Evaluation Time Seen by Provider: 03/08/17 16:16 Medical Evaluation: Allergies Allergy/AdvReac Type Severity Reaction Status Date / Time No Known Drug Allergies Allergy Verified 01/15/17 01:38 03/08/17 16:16 I performed a brief in-person evaluation of this patient. The patient presents with a chief complaint of: abdominal pain x 3 days. Seen at pmd's office yesterday instructed to come into emergency room to rule out gallstones. Reports pain keeping him up from sleeping Pertinent physical exam findings: NAD lungs; clear bilaterally heart: s1 s2 abd: + tenderness in right upper quadrant I have ordered the following: labs ordered The patient will proceed to the Ed for further evaluation Discharge Disposition - Referrals Referrals: Thania Trinidad MD [Primary Care Provider] - - Patient Instructions - Post Discharge Activity
--- NOTE | 2017-03-08 17:05 | PDOC ---
History of Present Illness <MosheRoxanne - Last Filed: 03/08/17 23:56> - General History Source: Patient, Family - History of Present Illness Timing/Duration: reports: getting worse Abdominal Pain Onset Location: reports: RUQ Pain Radiation: reports: no radiation <Ginger BrooksTreyNahed - Last Filed: 03/11/17 18:20> - General Chief Complaint: Pain, Acute Stated Complaint: RUQ PAIN Time Seen by Provider: 03/08/17 16:16 Past History <MosheRoxanen - Last Filed: 03/08/17 23:56> - Past Medical History Anemia: No Asthma: No Cancer: No Cardiac Disorders: No CVA: No COPD: No CHF: No Dementia: No Diabetes: Yes (IDDM) GI Disorders: Yes (DYSPHAGIA FOR 3 YEARS,CONSTIPATION,GERD) Disorders: No HTN: Yes Hypercholesterolemia: Yes Kidney Stones: Yes Liver Disease: No Seizures: No Thyroid Disease: No - Surgical History Abdominal Surgery: No Appendectomy: No Cardiac Surgery: Yes (STENTS) Cholecystectomy: No Lung Surgery: No Neurologic Surgery: No Orthopedic Surgery: No - Immunization History Immunization Up to Date: No - Suicide/Smoking/Psychosocial Hx Smoking History: Former smoker Have you smoked in the past 12 months: No Information on smoking cessation initiated: No Hx Alcohol Use: No Drug/Substance Use Hx: No Substance Use Type: None Hx Substance Use Treatment: No <Joseline BrooksisTreyNahed - Last Filed: 03/11/17 18:20> - Past Medical History Allergies/Adverse Reactions: Allergies Allergy/AdvReac Type Severity Reaction Status Date / Time No Known Drug Allergies Allergy Verified 03/08/17 16:17 Home Medications: Ambulatory Orders Gabapentin 300 mg PO TID 07/05/14 Aspirin [ASA -] 81 mg PO DAILY 03/06/16 Carbidopa/Levodopa [Rytary ER 61.25 mg-245 mg Cap] 1 each PO TID 03/06/16 Clopidogrel Bisulfate [Plavix -] 75 mg PO DAILY 03/06/16 Ergocalciferol (Vitamin D2) [Vitamin D2] 2,000 unit PO DAILY 03/06/16 Lisinopril 10 mg PO DAILY 03/06/16 Docusate Sodium [Colace -] 100 mg PO TID tab 01/20/17 Metoprolol Succinate [Toprol XL -] 25 mg PO DAILY #30 tab 01/20/17 [place]-3 Acid Ethyl Esters [Lovaza -] 2 gm PO BID cap 01/20/17 Sitagliptin Phosphate [Januvia -] 50 mg PO DAILY@0700 #30 tablet 01/20/17 Tamsulosin HCl [Flomax -] 0.4 mg PO DAILY@0830 #30 tab 01/20/17 Ezetimibe [Zetia] 10 mg PO DAILY 03/08/17 Insulin Aspart [Novolog] 0 unit SQ TID PRN 03/08/17 Insulin Glargine,Hum.rec.anlog [Lantus (nf)] 35 units SQ HS 03/08/17 Mirabegron [Myrbetriq] 50 mg PO DAILY 03/08/17 Ranitidine [Zantac -] 150 mg PO BID 03/08/17 Review of Systems - Review of Systems Constitutional: No: Chills, Fever Respiratory: No: Shortness of Breath Cardiac (ROS): No: Chest Pain ABD/GI: Yes: Nausea. No: Constipated, Diarrhea, Vomiting : No: Dysuria, Flank Pain, Hematuria <Kim Brooks - Last Filed: 03/11/17 18:20> *Physical Exam - Vital Signs Last Vital Signs Temp Pulse Resp BP Pulse Ox 97.5 F L 86 19 164/92 95 03/08/17 16:17 03/08/17 16:17 03/08/17 16:17 03/08/17 16:17 03/08/17 19:30 <Roxanne Mesa - Last Filed: 03/08/17 23:56> - Vital Signs Last Vital Signs Temp Pulse Resp BP Pulse Ox 97.5 F L 86 19 164/92 97 03/08/17 16:17 03/08/17 16:17 03/08/17 16:17 03/08/17 16:17 03/08/17 16:17 - Physical Exam General Appearance: Yes: Appropriately Dressed, Mild Distress HEENT: positive: Normal Voice Neck: positive: Supple Respiratory/Chest: positive: Lungs Clear, Normal Breath Sounds. negative: Respiratory Distress Cardiovascular: positive: Regular Rate, S1, S2 Gastrointestinal/Abdominal: positive: Tender (to RUQ, neg murpheys) Musculoskeletal: negative: CVA Tenderness Integumentary: positive: Dry, Warm Neurologic: positive: Fully Oriented, Alert, Normal Mood/Affect <QuincyGinger syedNani - Last Filed: 03/11/17 18:20> ED Treatment Course - LABORATORY CBC & Chemistry Diagram: 03/08/17 17:20 03/08/17 16:50 - ADDITIONAL ORDERS Additional order review: Laboratory Results 03/08/17 03/08/17 03/08/17 17:20 16:50 16:50 PT with INR 15.80 H INR 1.40 H PTT (Actin FS) 33.3 Sodium 137 Potassium 4.2 Chloride 105 Carbon Dioxide 25 Anion Gap 7 L BUN 28 H D Creatinine 1.5 H Creat Clearance w eGFR 44.69 Random Glucose 195 H Calcium 8.6 Total Bilirubin 1.1 H D Direct Bilirubin 0.8 H D AST 129 H D ALT 34 D Alkaline Phosphatase 335 H Creatine Kinase Creatine Kinase Index CK-MB (CK-2) Troponin I Total Protein 8.5 H Albumin 3.2 L D Lipase 157 03/08/17 16:30 PT with INR INR PTT (Actin FS) Sodium Potassium Chloride Carbon Dioxide Anion Gap BUN Creatinine Creat Clearance w eGFR Random Glucose Calcium Total Bilirubin Direct Bilirubin AST ALT Alkaline Phosphatase Creatine Kinase 344 H Creatine Kinase Index 2.1 CK-MB (CK-2) 7.520 H Troponin I < 0.02 Total Protein Albumin Lipase 03/08/17 17:20 RBC 4.46 MCV 94.5 MCHC 34.2 RDW 14.5 MPV 9.6 Neutrophils % 50.1 Lymphocytes % 32.9 Monocytes % 12.4 H Eosinophils % 3.7 Basophils % 0.9 - Medications Given in the ED: ED Medications Discontinued Medications Generic Name Dose Route Start Last Admin Trade Name Freq PRN Reason Stop Dose Admin Sodium Chloride 500 mls @ 1,000 mls/hr 03/08/17 18:08 03/08/17 18:30 Normal Saline - IV 03/08/17 18:37 1,000 mls/hr ASDIR STA Administration Morphine Sulfate 4 mg 03/08/17 18:08 03/08/17 18:29 Morphine Injection - IVPUSH 03/08/17 18:09 4 mg ONCE ONE Administration <Roxanne Mesa - Last Filed: 03/08/17 23:56> - LABORATORY CBC & Chemistry Diagram: 03/10/17 07:00 03/10/17 07:00 <Kim Brooks - Last Filed: 03/11/17 18:20> Medical Decision Making - Medical Decision Making 03/08/17 22:54 Dr. Tobars (Surgery) was paged and notified via phone service. Second call was paged at 11:17. Third call was placed at 11:40. Case was discussed with doctor at 11:43. 03/08/17 23:56 Dr. Trinidad was paged and notified via phone service. <Roxanne Mesa - Last Filed: 03/08/17 23:56> - Medical Decision Making 03/08/17 17:05 81-year-old male, possible Parkinson's per family, prostate ca, IDDDM, hypertension, hyperlipidemia, CAD with stents, ?gastritis on zantac, presents with severe right upper quadrant pain x several days. Also complaining of nausea, no vomiting, acute change in bowel movements, dysuria or hematuria. No history of similar pain in the past. Denies chest pain or shortness of breath See exam R/o acute constanza -pain control -labs -US 03/08/17 18:14 LFTs mildly elevated. Based on chart review, numbers also elevated 01/22 and was seen by GI who thought transaminitis was due to drug toxicity. At the time , patient was discontinued off his crestor and started on zetia. Hepatitis panel and ultrasound were unremarkable at the time. If ultrasound today is negative, may consider CT abdomen and pelvis 03/08/17 18:53 Pt signed out to BRANDI Cho at this time <Kim Brooks - Last Filed: 03/11/17 18:20> *DC/Admit/Observation/Transfer <Roxanne Mesa - Last Filed: 03/08/17 23:56> <Kim Brooks - Last Filed: 03/11/17 18:20> Diagnosis at time of Disposition: Chronic cholecystitis - Discharge Dispostion Condition at time of disposition: Stable
[2017-03-08 17:25] LABS: INR 1.4 (0.82-1.09); PROTHROMBIN TIME (PATIENT) 15.8 SEC (9.98-11.88)
[2017-03-08 17:28] LABS: ACTIVATED PTT 33.3 SECONDS (26.9-34.4)
[2017-03-08 17:38] LABS: ALBUMIN 3.2 g/dl (3.4-5.0); ALK PHOS 335 U/L (45-117); ANION GAP 7 (8-16); BILIRUBIN,DIRECT 0.8 mg/dL (0.0-0.2); BILIRUBIN,TOTAL 1.1 mg/dL (0.2-1.0); CALCIUM 8.6 mg/dL (8.5-10.1); CO2 25 mmol/L (21-32); CREATININE 1.5 mg/dL (0.7-1.3); GLUCOSE,RANDOM 195 mg/dL (74-106); SGPT/ALT 34 U/L (12-78); TOT PROT 8.5 g/dl (6.4-8.2)
[2017-03-08 17:41] LABS: BASOPHIL 0.9 % (0-2.0); EOSINOPHIL 3.7 % (0-4.5); MCH 32.4 pg (25.7-33.7); MCHC 34.2 g/dl (32.0-35.9); MEAN CELL VOLUME 94.5 fl (80-96); MEAN PLT VOLUME 9.6 fl (7.5-11.1); NEUTROPHILS 50.1 % (42.8-82.8); PLATELET COUNT 198 K/MM3 (134-434); RDW 14.5 % (11.9-15.9); WHITE BLOOD COUNT 6.1 K/mm3 (4.0-10.0)
[2017-03-08 17:47] LABS: SGOT/AST 129 U/L (15-37)
[2017-03-08] MEDS ORDERED: morphine CARPU-JECT 4 MG/1 ML DISP.SYRIN IVPUSH ONE (18:08)
[2017-03-08] MEDS ORDERED: SODIUM CHLORIDE 500 ML IV STA (18:08)
[2017-03-08] MEDS ORDERED: morphine SULFATE 4 MG/ML VIAL ONE (18:14)
[2017-03-08 18:32] LABS: CPK 344 IU/L (39-308); TROPONIN I < 0.02 ng/ml (0.00-0.05)
[2017-03-09] MEDS ORDERED: AMPICILLIN NA/SULBACTAM NA 1.5 GM in SODIUM CHLORIDE 100 ML IVPB ONE (00:01)
[2017-03-09] MEDS ORDERED: METRONIDAZOLE 500 MG PREMIXED 500 MG/100 ML MG IVPB ONE (00:01)
--- NOTE | 2017-03-09 00:05 | PDOC ---
*Physical Exam - Vital Signs Last Vital Signs Temp Pulse Resp BP Pulse Ox 97.5 F L 86 19 164/92 95 03/08/17 16:17 03/08/17 16:17 03/08/17 16:17 03/08/17 16:17 03/08/17 19:30 ED Treatment Course - LABORATORY CBC & Chemistry Diagram: 03/08/17 17:20 03/08/17 16:50 - ADDITIONAL ORDERS Additional order review: Laboratory Results 03/08/17 03/08/17 03/08/17 17:20 16:50 16:50 PT with INR 15.80 H INR 1.40 H PTT (Actin FS) 33.3 Sodium 137 Potassium 4.2 Chloride 105 Carbon Dioxide 25 Anion Gap 7 L BUN 28 H D Creatinine 1.5 H Creat Clearance w eGFR 44.69 Random Glucose 195 H Calcium 8.6 Total Bilirubin 1.1 H D Direct Bilirubin 0.8 H D AST 129 H D ALT 34 D Alkaline Phosphatase 335 H Creatine Kinase Creatine Kinase Index CK-MB (CK-2) Troponin I Total Protein 8.5 H Albumin 3.2 L D Lipase 157 03/08/17 16:30 PT with INR INR PTT (Actin FS) Sodium Potassium Chloride Carbon Dioxide Anion Gap BUN Creatinine Creat Clearance w eGFR Random Glucose Calcium Total Bilirubin Direct Bilirubin AST ALT Alkaline Phosphatase Creatine Kinase 344 H Creatine Kinase Index 2.1 CK-MB (CK-2) 7.520 H Troponin I < 0.02 Total Protein Albumin Lipase 03/08/17 17:20 RBC 4.46 MCV 94.5 MCHC 34.2 RDW 14.5 MPV 9.6 Neutrophils % 50.1 Lymphocytes % 32.9 Monocytes % 12.4 H Eosinophils % 3.7 Basophils % 0.9 - Medications Given in the ED: ED Medications Discontinued Medications Generic Name Dose Route Start Last Admin Trade Name Freq PRN Reason Stop Dose Admin Sodium Chloride 500 mls @ 1,000 mls/hr 03/08/17 18:08 03/08/17 18:30 Normal Saline - IV 03/08/17 18:37 1,000 mls/hr ASDIR STA Administration Morphine Sulfate 4 mg 03/08/17 18:08 03/08/17 18:29 Morphine Injection - IVPUSH 03/08/17 18:09 4 mg ONCE ONE Administration Medical Decision Making - Medical Decision Making 03/09/17 00:01 81-year-old male with multiple medical problems presents with persistent right upper quadrant pain. Labs remarkable for elevated AST and alkaline phosphatase. Ultrasound with cholelithiasis and wall thickening concerning for possible chronic cholecystitis. Case discussed with Dr. Senior from surgery who recommends admission for medical optimization for surgery. I discussed the latter with Dr. Trinidad who will admit the patient. I covered the patient with Unasyn and Flagyl in the meantime. Case discussed in detail with admitting physician including history, physical exam and ancillary studies. Admitting physician has assumed care for the patient, will follow all pending diagnostics and will complete the evaluation and treatment. *DC/Admit/Observation/Transfer Diagnosis at time of Disposition: Chronic cholecystitis - Discharge Dispostion Condition at time of disposition: Stable Admit: Yes - Referrals Referrals: Thania Trinidad MD [Primary Care Provider] - - Patient Instructions - Post Discharge Activity - Attestations Physician Attestion: 03/09/17 00:04 I, Dr. Kg Duncan MD, attest that this document has been prepared under my direction and personally reviewed by me in its entirety. I further attest, that it accurately reflects all work, treatment, procedures and medical decision -making performed by me.
--- NOTE | 2017-03-09 00:11 | PDOC ---
History of Present Illness - General Chief Complaint: Pain, Acute Stated Complaint: RUQ PAIN Time Seen by Provider: 03/08/17 16:16 Past History - Past Medical History Allergies/Adverse Reactions: Allergies Allergy/AdvReac Type Severity Reaction Status Date / Time No Known Drug Allergies Allergy Verified 03/08/17 16:17 Home Medications: Ambulatory Orders Gabapentin 300 mg PO TID 07/05/14 Aspirin [ASA -] 81 mg PO DAILY 03/06/16 Carbidopa/Levodopa [Rytary ER 61.25 mg-245 mg Cap] 1 each PO TID 03/06/16 Clopidogrel Bisulfate [Plavix -] 75 mg PO DAILY 03/06/16 Ergocalciferol (Vitamin D2) [Vitamin D2] 2,000 unit PO DAILY 03/06/16 Lisinopril 10 mg PO DAILY 03/06/16 Docusate Sodium [Colace -] 100 mg PO TID tab 01/20/17 Metoprolol Succinate [Toprol XL -] 25 mg PO DAILY #30 tab 01/20/17 [place]-3 Acid Ethyl Esters [Lovaza -] 2 gm PO BID cap 01/20/17 Sitagliptin Phosphate [Januvia -] 50 mg PO DAILY@0700 #30 tablet 01/20/17 Tamsulosin HCl [Flomax -] 0.4 mg PO DAILY@0830 #30 tab 01/20/17 Ezetimibe [Zetia] 10 mg PO DAILY 03/08/17 Insulin Aspart [Novolog] 0 unit SQ TID PRN 03/08/17 Insulin Glargine,Hum.rec.anlog [Lantus (nf)] 35 units SQ HS 03/08/17 Mirabegron [Myrbetriq] 50 mg PO DAILY 03/08/17 Ranitidine [Zantac -] 150 mg PO BID 03/08/17 Anemia: No Asthma: No Cancer: No Cardiac Disorders: No CVA: No COPD: No CHF: No Dementia: No Diabetes: Yes (IDDM) GI Disorders: Yes (DYSPHAGIA FOR 3 YEARS,CONSTIPATION,GERD) Disorders: No HTN: Yes Hypercholesterolemia: Yes Kidney Stones: Yes Liver Disease: No Seizures: No Thyroid Disease: No - Surgical History Abdominal Surgery: No Appendectomy: No Cardiac Surgery: Yes (STENTS) Cholecystectomy: No Lung Surgery: No Neurologic Surgery: No Orthopedic Surgery: No - Immunization History Immunization Up to Date: No - Suicide/Smoking/Psychosocial Hx Smoking History: Former smoker Have you smoked in the past 12 months: No Information on smoking cessation initiated: No Hx Alcohol Use: No Drug/Substance Use Hx: No Substance Use Type: None Hx Substance Use Treatment: No *Physical Exam - Vital Signs Last Vital Signs Temp Pulse Resp BP Pulse Ox 97.5 F L 86 19 164/92 95 03/08/17 16:17 03/08/17 16:17 03/08/17 16:17 03/08/17 16:17 03/08/17 19:30 ED Treatment Course - LABORATORY CBC & Chemistry Diagram: 03/08/17 17:20 03/08/17 16:50 - ADDITIONAL ORDERS Additional order review: Laboratory Results 03/08/17 03/08/17 03/08/17 17:20 16:50 16:50 PT with INR 15.80 H INR 1.40 H PTT (Actin FS) 33.3 Sodium 137 Potassium 4.2 Chloride 105 Carbon Dioxide 25 Anion Gap 7 L BUN 28 H D Creatinine 1.5 H Creat Clearance w eGFR 44.69 Random Glucose 195 H Calcium 8.6 Total Bilirubin 1.1 H D Direct Bilirubin 0.8 H D AST 129 H D ALT 34 D Alkaline Phosphatase 335 H Creatine Kinase Creatine Kinase Index CK-MB (CK-2) Troponin I Total Protein 8.5 H Albumin 3.2 L D Lipase 157 03/08/17 16:30 PT with INR INR PTT (Actin FS) Sodium Potassium Chloride Carbon Dioxide Anion Gap BUN Creatinine Creat Clearance w eGFR Random Glucose Calcium Total Bilirubin Direct Bilirubin AST ALT Alkaline Phosphatase Creatine Kinase 344 H Creatine Kinase Index 2.1 CK-MB (CK-2) 7.520 H Troponin I < 0.02 Total Protein Albumin Lipase 03/08/17 17:20 RBC 4.46 MCV 94.5 MCHC 34.2 RDW 14.5 MPV 9.6 Neutrophils % 50.1 Lymphocytes % 32.9 Monocytes % 12.4 H Eosinophils % 3.7 Basophils % 0.9 - RADIOLOGY Radiology Studies Ordered: Category Date Time Status RIBS RIGHT SIDE [RAD] Stat Radiology 03/08/17 19:27 Taken - Medications Given in the ED: ED Medications Discontinued Medications Generic Name Dose Route Start Last Admin Trade Name Freq PRN Reason Stop Dose Admin Sodium Chloride 500 mls @ 1,000 mls/hr 03/08/17 18:08 03/08/17 18:30 Normal Saline - IV 03/08/17 18:37 1,000 mls/hr ASDIR STA Administration Morphine Sulfate 4 mg 03/08/17 18:08 03/08/17 18:29 Morphine Injection - IVPUSH 03/08/17 18:09 4 mg ONCE ONE Administration *DC/Admit/Observation/Transfer Diagnosis at time of Disposition: Chronic cholecystitis - Discharge Dispostion Condition at time of disposition: Stable - Referrals Referrals: Thania Trinidad MD [Primary Care Provider] - - Patient Instructions - Post Discharge Activity
[2017-03-09] MEDS ORDERED: KETOROLAC TROMETHAMINE 15 MG/ML VIAL IVPUSH ONE (00:13)
[2017-03-09] MEDS ORDERED: SODIUM CHLORIDE 0.9% 1000 ML INFUS.BAG IV ONE (00:13)
[2017-03-09] MEDS ORDERED: ONDANSETRON 4 MG/2 ML VIAL IVPUSH PRN (00:24)
[2017-03-09] MEDS ORDERED: TAMSULOSIN HCL 0.4 MG CAP.ER.24H (FP) PO ONE (00:24)
[2017-03-09] MEDS ORDERED: ACETAMINOPHEN 325 MG TABLET (FP) PO PRN (00:24)
[2017-03-09] MEDS ORDERED: KETOROLAC TROMETHAMINE 15 MG/ML VIAL ONE (00:27)
[2017-03-09] MEDS ORDERED: TAMSULOSIN HCL 0.4 MG CAP.ER.24H (FP) ONE (01:03)
[2017-03-09] MEDS ORDERED: AMPICILLIN NA/SULBACTAM NA 1.5 GM in SODIUM CHLORIDE 100 ML IVPB SCH (02:00)
[2017-03-09] MEDS ORDERED: METRONIDAZOLE 500 MG PREMIXED 500 MG/100 ML MG IVPB SCH (02:00)
[2017-03-09 02:08] VITALS: BMI 30.9
[2017-03-09] MEDS: sitaGLIPtin PHOSPHATE 25 MG TABLET (FP) PO SCH (06:43)
[2017-03-09] MEDS: INSULIN SLIDING SCALE (NOVOLOG) 1 VIAL SQ SCH ×4 (06:44→21:45)
--- NOTE | 2017-03-09 08:47 | CONSULT ---
Consult Consult Specialty:: general surgery Referred by:: yoli dominique - ED Reason for Consultation:: abdominal pain - History of Present Illness Chief Complaint: worsening abdominal pain History of Present Illness: 81year-old male PMH Parkinson's, prostate ca, IDDDM, hypertension, hyperlipidemia, CAD with stents, GERD on zantac, presents with severe right upper quadrant pain. He notes that pain has been gradually worsening for one month and is focal to the right upper quadrant without radiation, in the last one week it has been very bad, rated 6/10 and constant. He does not notice it close to mealtime. There is no relief at this point. He has not had any nausea , no vomiting, acute change in bowel movements, dysuria or hematuria. He has no had any previous abdominal surgery. No history of similar pain in the past. We were asked to assess after abdominal ultrasound was done. - History Source History Provided By: Patient Limitations to Obtaining History: No Limitations - Past Medical History [employer]: Yes: Parkinson's Cardio/Vascular: Yes: CAD, HTN, Hyperlipdemia Gastrointestinal: Yes: Constipation Renal/: Yes: BPH, Other Endocrine: Yes: Diabetes Mellitus - Alcohol/Substance Use Hx Alcohol Use: No - Smoking History Smoking history: Former smoker Have you smoked in the past 12 months: No Home Medications - Allergies Allergies/Adverse Reactions: Allergies Allergy/AdvReac Type Severity Reaction Status Date / Time No Known Drug Allergies Allergy Verified 03/08/17 16:17 - Home Medications Home Medications: Ambulatory Orders Gabapentin 300 mg PO TID 07/05/14 Aspirin [ASA -] 81 mg PO DAILY 03/06/16 Carbidopa/Levodopa [Rytary ER 61.25 mg-245 mg Cap] 1 each PO TID 03/06/16 Clopidogrel Bisulfate [Plavix -] 75 mg PO DAILY 03/06/16 Ergocalciferol (Vitamin D2) [Vitamin D2] 2,000 unit PO DAILY 03/06/16 Lisinopril 10 mg PO DAILY 03/06/16 Docusate Sodium [Colace -] 100 mg PO TID tab 01/20/17 Metoprolol Succinate [Toprol XL -] 25 mg PO DAILY #30 tab 01/20/17 [place]-3 Acid Ethyl Esters [Lovaza -] 2 gm PO BID cap 01/20/17 Sitagliptin Phosphate [Januvia -] 50 mg PO DAILY@0700 #30 tablet 01/20/17 Tamsulosin HCl [Flomax -] 0.4 mg PO DAILY@0830 #30 tab 01/20/17 Ezetimibe [Zetia] 10 mg PO DAILY 03/08/17 Insulin Aspart [Novolog] 0 unit SQ TID PRN 03/08/17 Insulin Glargine,Hum.rec.anlog [Lantus (nf)] 35 units SQ HS 03/08/17 Mirabegron [Myrbetriq] 50 mg PO DAILY 03/08/17 Ranitidine [Zantac -] 150 mg PO BID 03/08/17 Review of Systems - Review of Systems Constitutional: denies: Chills, Fever Eyes: denies: Blurred Vision, Recent Change in Vision HENT: denies: Difficult Swallowing, Throat Pain Neck: denies: Lumps, Swollen Glands Cardiovascular: denies: Chest Pain, Palpitations Respiratory: denies: Cough, SOB Gastrointestinal: reports: Abdominal Pain, Indigestion. denies: Vomiting Genitourinary: denies: Burning, Discharge Breasts: denies: Lumps, Pain Musculoskeletal: denies: Muscle Pain, Muscle Weakness Integumentary: denies: Lesions, Rash Neurological: reports: Tremors. denies: Headache Endocrine: denies: Unexplained Weight Gain, Unexplained Weight Loss Hematology/Lymphatic: denies: Easily Bruised, Excessive Bleeding Psychiatric: denies: Anxiety, Depression Pain Intensity: 6 Physical Exam Vital Signs: Vital Signs Temperature 97.5 F L 03/09/17 05:00 Pulse Rate 82 03/09/17 05:00 Respiratory Rate 16 03/09/17 05:00 Blood Pressure 152/86 03/09/17 05:00 O2 Sat by Pulse Oximetry (%) 95 03/09/17 01:18 Vital Signs Period Temp Pulse Resp BP Sys/Malcolm Pulse Ox Last 24 Hr 97.5 F-97.7 F 81-86 16-19 152-164/80-92 95-97 Constitutional: Yes: Well Nourished, No Distress, Calm, Obese Eyes: Yes: Conjunctiva Clear, EOM Intact HENT: Yes: Atraumatic, Normocephalic Neck: Yes: Supple, Trachea Midline Cardiovascular: Yes: Regular Rate and Rhythm, S1, S2. No: Murmur Respiratory: Yes: Regular, CTA Bilaterally Gastrointestinal: Yes: Normal Bowel Sounds, Soft, Hepatomegaly, Tenderness (RUQ , negative griffiths's sign). No: Tenderness, Epigastrium, Tenderness, Rebound Renal/: No: CVA Tenderness - Left, CVA Tenderness - Right Musculoskeletal: No: Muscle Pain, Muscle Weakness Extremities: No: Cool, Cyanosis Edema: RUE: Trace Peripheral Pulses WNL: Yes Integumentary: No: Rash Neurological: Yes: Alert, Oriented Psychiatric: Yes: Alert, Oriented Labs: CBC,CMP WBC 6.1 K/mm3 (4.0-10.0) 03/08/17 17:20 RBC 4.46 M/mm3 (4.00-5.60) 03/08/17 17:20 Hgb 14.4 GM/dL (11.7-16.9) D 03/08/17 17:20 Hct 42.2 % (35.4-49) 03/08/17 17:20 MCV 94.5 fl (80-96) 03/08/17 17:20 MCH 32.4 pg (25.7-33.7) 03/08/17 17:20 MCHC 34.2 g/dl (32.0-35.9) 03/08/17 17:20 RDW 14.5 % (11.9-15.9) 03/08/17 17:20 Plt Count 198 K/MM3 (134-434) 03/08/17 17:20 MPV 9.6 fl (7.5-11.1) 03/08/17 17:20 Neutrophils % 50.1 % (42.8-82.8) 03/08/17 17:20 Lymphocytes % 32.9 % (8-40) 03/08/17 17:20 Monocytes % 12.4 % (3.8-10.2) H 03/08/17 17:20 Eosinophils % 3.7 % (0-4.5) 03/08/17 17:20 Basophils % 0.9 % (0-2.0) 03/08/17 17:20 ESR 39 mm/hr (0-20) H 03/09/17 01:00 Sodium 137 mmol/L (136-145) 03/08/17 16:50 Potassium 4.2 mmol/L (3.5-5.1) 03/08/17 16:50 Chloride 105 mmol/L (98-107) 03/08/17 16:50 Carbon Dioxide 25 mmol/L (21-32) 03/08/17 16:50 Anion Gap 7 (8-16) L 03/08/17 16:50 BUN 28 mg/dL (7-18) H D 03/08/17 16:50 Creatinine 1.5 mg/dL (0.7-1.3) H 03/08/17 16:50 Creat Clearance w eGFR 44.69 (>60) 03/08/17 16:50 POC Glucometer 194 UNITS (80-120) 03/09/17 06:42 Random Glucose 195 mg/dL (74-106) H 03/08/17 16:50 Calcium 8.6 mg/dL (8.5-10.1) 03/08/17 16:50 Total Bilirubin 1.1 mg/dL (0.2-1.0) H D 03/08/17 16:50 Direct Bilirubin 0.8 mg/dL (0.0-0.2) H D 03/08/17 16:50 AST 129 U/L (15-37) H D 03/08/17 16:50 ALT 34 U/L (12-78) D 03/08/17 16:50 Alkaline Phosphatase 335 U/L (45-117) H 03/08/17 16:50 Creatine Kinase 344 IU/L (39-308) H 03/08/17 16:30 Creatine Kinase Index 2.1 % (0.0-5.0) 03/08/17 16:30 CK-MB (CK-2) 7.520 ng/mL (0.5-3.6) H 03/08/17 16:30 Troponin I < 0.02 ng/ml (0.00-0.05) 03/08/17 16:30 C-Reactive Protein 2.9 MG/DL (0.00-0.3) H 03/09/17 01:00 Total Protein 8.5 g/dl (6.4-8.2) H 03/08/17 16:50 Albumin 3.2 g/dl (3.4-5.0) L D 03/08/17 16:50 Lipase 157 U/L (73-393) 03/08/17 17:20 Abnormal Lab Results 03/08/17 03/08/17 03/08/17 16:30 16:50 16:50 Monocytes % ESR PT with INR 15.80 H INR 1.40 H Anion Gap 7 L BUN 28 H D Creatinine 1.5 H Random Glucose 195 H Total Bilirubin 1.1 H D Direct Bilirubin 0.8 H D AST 129 H D Alkaline Phosphatase 335 H Creatine Kinase 344 H CK-MB (CK-2) 7.520 H C-Reactive Protein Total Protein 8.5 H Albumin 3.2 L D 03/08/17 03/09/17 03/09/17 17:20 01:00 01:00 Monocytes % 12.4 H ESR 39 H PT with INR INR Anion Gap BUN Creatinine Random Glucose Total Bilirubin Direct Bilirubin AST Alkaline Phosphatase Creatine Kinase CK-MB (CK-2) C-Reactive Protein 2.9 H Total Protein Albumin Imaging - Results Ultrasound: Report Reviewed (changes consistent with chronic cholecystitis), Image Reviewed MRI: Pending Problem List - Problems (1) Chronic cholecystitis Assessment/Plan: 81 yo male MMP including CAD with stents presents with chronic right upper quadrant pain that can be attributed to chronic cholecystitis NPO and IVF hydration Trend labs (Tbili is elevated 1.1) Medical optimization for laparoscopic cholecystectomy possible open cholecystectomy on 03/11 Cardiology and GI evaluation prior to surgery Discussed with patient risks, benefits and alternatives of laparoscopic possible open cholecystectomy, including but not limited to bleeding, infection , injury to adjacent structures, leak or injury, intraabdominal abscess, need for further procedures, ; alternatives include antibiotics, delayed or no surgery - risks of this include failure of nonoperative therapy, perforation, sepsis, recurrence, . Patient desires to proceed with operation - will take to OR for above. Informed consent signed for same. Code(s): K81.1 - CHRONIC CHOLECYSTITIS (2) Biliary colic Code(s): K80.50 - CALCULUS OF BILE DUCT W/O CHOLANGITIS OR CHOLECYST W/O OBST (3) JOSSELYN (acute kidney injury) Code(s): N17.9 - ACUTE KIDNEY FAILURE, UNSPECIFIED (4) CAD (coronary artery disease) Code(s): I25.10 - ATHSCL HEART DISEASE OF [place] CORONARY ARTERY W/O ANG PCTRS (5) Diabetes mellitus, insulin dependent (IDDM), uncontrolled Code(s): E10.65 - TYPE 1 DIABETES MELLITUS WITH HYPERGLYCEMIA (6) Hypertension Code(s): I10 - ESSENTIAL (PRIMARY) HYPERTENSION
--- NOTE | 2017-03-09 09:22 | EKG ---
Test Reason : Blood Pressure : / mmHG Vent. Rate : 082 BPM Atrial Rate : 082 BPM P-R Int : 196 ms QRS Dur : 090 ms QT Int : 396 ms P-R-T Axes : -20 -21 024 degrees QTc Int : 462 ms NORMAL SINUS RHYTHM MINIMAL VOLTAGE CRITERIA FOR LVH, MAY BE NORMAL VARIANT POSSIBLE ANTERIOR INFARCT (CITED ON OR BEFORE 15-JAN-2017) ABNORMAL ECG WHEN COMPARED WITH ECG OF 15-JAN-2017 12:13, NO SIGNIFICANT CHANGE WAS FOUND Confirmed by JAVI FLORIAN MD ([id number]) on 03/09/2017 9:22:05 AM Referred By: Confirmed By:JAVI FLORIAN MD
[2017-03-09] MEDS ORDERED: PT OWN MED DRAWER 7, Y5N ONE ×3 (09:48→16:50)
[2017-03-09] MEDS: METRONIDAZOLE 500 MG PREMIXED 500 MG/100 ML MG IVPB SCH ×2 (09:53→17:18)
[2017-03-09] MEDS: LISINOPRIL 10 MG TABLET (FP) PO SCH (09:53)
[2017-03-09] MEDS: AMPICILLIN NA/SULBACTAM NA 1.5 GM in SODIUM CHLORIDE 100 ML IVPB SCH ×2 (10:50→17:18)
[2017-03-09] MEDS: FAMOTIDINE IV 20 MG/12 ML VIAL IVPUSH SCH ×2 (10:50→21:40)
[2017-03-09] MEDS: EZETIMIBE 10 MG TABLET (FP) PO SCH ×2 (11:21→11:25)
--- NOTE | 2017-03-09 12:15 | CON.NEP ---
Consult Consult Specialty:: nephrology Referred by:: dr Trinidad Reason for Consultation:: ckd - History of Present Illness Chief Complaint: abdominal pain History of Present Illness: Pt admitted with right upper quadrant abdominal pain for optimization prior to cholecystectomy. He denies renal issues though says he has dark urine. Has history of BPH and had prostate surgery. No new medication. 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 Cardio/Vascular: Yes: CAD, HTN, Hyperlipdemia Gastrointestinal: Yes: Constipation Renal/: Yes: BPH, Other Endocrine: Yes: Diabetes Mellitus - Alcohol/Substance Use Hx Alcohol Use: No - Smoking History Smoking history: Former smoker Have you smoked in the past 12 months: No Home Medications - Allergies Allergies/Adverse Reactions: Allergies Allergy/AdvReac Type Severity Reaction Status Date / Time No Known Drug Allergies Allergy Verified 03/08/17 16:17 - Home Medications Home Medications: Ambulatory Orders Gabapentin 300 mg PO TID 07/05/14 Aspirin [ASA -] 81 mg PO DAILY 03/06/16 Carbidopa/Levodopa [Rytary ER 61.25 mg-245 mg Cap] 1 each PO TID 03/06/16 Clopidogrel Bisulfate [Plavix -] 75 mg PO DAILY 03/06/16 Ergocalciferol (Vitamin D2) [Vitamin D2] 2,000 unit PO DAILY 03/06/16 Lisinopril 10 mg PO DAILY 03/06/16 Docusate Sodium [Colace -] 100 mg PO TID tab 01/20/17 Metoprolol Succinate [Toprol XL -] 25 mg PO DAILY #30 tab 01/20/17 [place]-3 Acid Ethyl Esters [Lovaza -] 2 gm PO BID cap 01/20/17 Sitagliptin Phosphate [Januvia -] 50 mg PO DAILY@0700 #30 tablet 01/20/17 Tamsulosin HCl [Flomax -] 0.4 mg PO DAILY@0830 #30 tab 01/20/17 Ezetimibe [Zetia] 10 mg PO DAILY 03/08/17 Insulin Aspart [Novolog] 0 unit SQ TID PRN 03/08/17 Insulin Glargine,Hum.rec.anlog [Lantus (nf)] 35 units SQ HS 03/08/17 Mirabegron [Myrbetriq] 50 mg PO DAILY 03/08/17 Ranitidine [Zantac -] 150 mg PO BID 03/08/17 Review of Systems - Review of Systems Constitutional: reports: No Symptoms Eyes: reports: No Symptoms HENT: reports: No Symptoms Neck: reports: No Symptoms Cardiovascular: reports: No Symptoms Respiratory: reports: No Symptoms Gastrointestinal: reports: Abdominal Pain, Constipation Genitourinary: reports: Other (dark urine) Breasts: reports: No Symptoms Reported Musculoskeletal: reports: No Symptoms Integumentary: reports: No Symptoms Neurological: reports: No Symptoms Endocrine: reports: No Symptoms Hematology/Lymphatic: reports: No Symptoms Psychiatric: reports: No Symptoms Nephrology Consult - Height Height: 5 ft 6 in - Weight Weight: 192 lb - BMI Body Mass Index (BMI): 30.9 - Lab Results CBC,BMP: CBC, BMP 03/08/17 17:20 03/08/17 16:50 Anion Gap: Anion Gap Anion Gap 7 (8-16) L 03/08/17 16:50 - Imaging Ultrasound: Report Reviewed (choledocolithiasis without evidence of acute cholecystitis) - Physical Examination Vital Signs: Vital Signs Temperature 97.5 F L 03/09/17 05:00 Pulse Rate 82 03/09/17 05:00 Respiratory Rate 16 03/09/17 05:00 Blood Pressure 152/86 03/09/17 05:00 O2 Sat by Pulse Oximetry (%) 95 03/09/17 01:18 Constitutional: Yes: Well Nourished, No Distress, Calm Eyes: Yes: Conjunctiva Clear, EOM Intact HENT: Yes: Atraumatic, Normocephalic Neck: Yes: Supple, Trachea Midline Cardiovascular: Yes: Regular Rate and Rhythm Respiratory: Yes: CTA Bilaterally Gastrointestinal: Yes: Normal Bowel Sounds, Soft, Tenderness Renal/: Yes: WNL Musculoskeletal: Yes: WNL Extremities: Yes: WNL Edema: No Peripheral Pulses WNL: Yes Neurological: Yes: Alert, Oriented Psychiatric: Yes: Alert, Oriented Assessment/Plan IMPRESSION Has stable non proteinuric ckd which is most likely to be from post obstructive issues. He is diabetic and this may be playing a role but the absence of proteinuria makes diabetes less likely. There is no renal contraindication to proposed surgery. PLAN would avoid acute drops in BP during surgery would keep well hydrated hold flomax prior to OR monitor creatinine MV
--- NOTE | 2017-03-09 13:29 | HP ---
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 Cardiovascular: Yes: CAD, HTN, Hyperlipdemia Gastrointestinal: Yes: Constipation Renal/: Yes: BPH, Other Endocrine: Yes: Diabetes Mellitus - Smoking History Smoking history: Former smoker Have you smoked in the past 12 months: No - Alcohol/Substance Use Hx Alcohol Use: No Home Medications - Allergies Allergies/Adverse Reactions: Allergies Allergy/AdvReac Type Severity Reaction Status Date / Time No Known Drug Allergies Allergy Verified 03/08/17 16:17 - Home Medications Home Medications: Ambulatory Orders Gabapentin 300 mg PO TID 07/05/14 Aspirin [ASA -] 81 mg PO DAILY 03/06/16 Carbidopa/Levodopa [Rytary ER 61.25 mg-245 mg Cap] 1 each PO TID 03/06/16 Clopidogrel Bisulfate [Plavix -] 75 mg PO DAILY 03/06/16 Ergocalciferol (Vitamin D2) [Vitamin D2] 2,000 unit PO DAILY 03/06/16 Lisinopril 10 mg PO DAILY 03/06/16 Docusate Sodium [Colace -] 100 mg PO TID tab 01/20/17 Metoprolol Succinate [Toprol XL -] 25 mg PO DAILY #30 tab 01/20/17 [place]-3 Acid Ethyl Esters [Lovaza -] 2 gm PO BID cap 01/20/17 Sitagliptin Phosphate [Januvia -] 50 mg PO DAILY@0700 #30 tablet 01/20/17 Tamsulosin HCl [Flomax -] 0.4 mg PO DAILY@0830 #30 tab 01/20/17 Ezetimibe [Zetia] 10 mg PO DAILY 03/08/17 Insulin Aspart [Novolog] 0 unit SQ TID PRN 03/08/17 Insulin Glargine,Hum.rec.anlog [Lantus (nf)] 35 units SQ HS 03/08/17 Mirabegron [Myrbetriq] 50 mg PO DAILY 03/08/17 Ranitidine [Zantac -] 150 mg PO BID 03/08/17 Review of Systems - Review of Systems Constitutional: reports: Other Eyes: reports: No Symptoms HENT: reports: No Symptoms Neck: reports: No Symptoms Cardiovascular: reports: No Symptoms Respiratory: reports: No Symptoms Gastrointestinal: reports: Abdominal Pain, Indigestion, Nausea, Vomiting Genitourinary: reports: No Symptoms Musculoskeletal: reports: No Symptoms Integumentary: reports: No Symptoms Neurological: reports: No Symptoms Endocrine: reports: No Symptoms Hematology/Lymphatic: reports: No Symptoms Psychiatric: reports: No Symptoms Physical Examination Vital Signs: Vital Signs Temperature 97.5 F L 03/09/17 05:00 Pulse Rate 82 03/09/17 05:00 Respiratory Rate 16 03/09/17 05:00 Blood Pressure 152/86 03/09/17 05:00 O2 Sat by Pulse Oximetry (%) 95 03/09/17 01:18 Constitutional: Yes: Mild Distress Eyes: Yes: WNL HENT: Yes: WNL Neck: Yes: WNL Cardiovascular: Yes: WNL Respiratory: Yes: WNL Gastrointestinal: Yes: Soft, Tenderness, Rebound Renal/: Yes: WNL Musculoskeletal: Yes: WNL Extremities: Yes: WNL Edema: Yes Peripheral Pulses WNL: Yes Integumentary: Yes: WNL Wound/Incision: Yes: Clean/Dry Neurological: Yes: Pre-Existing Deficit ...Motor Strength: WNL Psychiatric: Yes: WNL Labs: CBC, BMP 03/08/17 17:20 03/08/17 16:50 Imaging - Results Cat Scan: Report Reviewed Problem List - Problems (1) Biliary colic Code(s): K80.50 - CALCULUS OF BILE DUCT W/O CHOLANGITIS OR CHOLECYST W/O OBST (2) Chronic cholecystitis Code(s): K81.1 - CHRONIC CHOLECYSTITIS (3) Diabetes Code(s): E11.9 - TYPE 2 DIABETES MELLITUS WITHOUT COMPLICATIONS Qualifiers: Diabetes mellitus type: type 2 (4) Diabetes mellitus, insulin dependent (IDDM), uncontrolled Code(s): E10.65 - TYPE 1 DIABETES MELLITUS WITH HYPERGLYCEMIA Qualifiers: Chronic kidney disease stage: unspecified stage (5) Elevated liver enzymes Code(s): R74.8 - ABNORMAL LEVELS OF OTHER SERUM ENZYMES Assessment/Plan IV ABX DVT PROPHYLAXIS GI AND SX EVAL CARDIAC CLEARANCE LIQUID DIET NPO Saturday BMG CHECKS
--- NOTE | 2017-03-09 14:13 | PN ---
Progress Note (short form) - Note Progress Note: PULMONARY CONSULTATION DICTATED 03/09/17 IMP RUQ PAIN CHOLELITHIASIS ASHD S/P STENT H/O PROSTATE CA HTN DM CKD PLAN LAP CHOLEY ON SATURDAY CHEST X-RAY PA+ LATERAL PRE -OP ANTIBIOTICS IVF DVT PROPHYLAXIS AT THIS TIME THERE ARE PULMONARY CONTRAINDICATIONS TO SURGERY WILL FOLLOW POST -OP WITH YOU DR FITCH Problem List - Problems (1) Chronic kidney disease Code(s): N18.9 - CHRONIC KIDNEY DISEASE, UNSPECIFIED (2) Biliary colic Code(s): K80.50 - CALCULUS OF BILE DUCT W/O CHOLANGITIS OR CHOLECYST W/O OBST (3) JOSSELYN (acute kidney injury) Code(s): N17.9 - ACUTE KIDNEY FAILURE, UNSPECIFIED (4) CAD (coronary artery disease) Code(s): I25.10 - ATHSCL HEART DISEASE OF [place] CORONARY ARTERY W/O ANG PCTRS (5) Diabetes Code(s): E11.9 - TYPE 2 DIABETES MELLITUS WITHOUT COMPLICATIONS Qualifiers: Diabetes mellitus type: type 2 (6) Elevated liver enzymes Code(s): R74.8 - ABNORMAL LEVELS OF OTHER SERUM ENZYMES (7) Hypertension Code(s): I10 - ESSENTIAL (PRIMARY) HYPERTENSION (8) Parkinson disease Code(s): G20 - PARKINSON'S DISEASE
[2017-03-09] MEDS: LACTATED RINGERS SOLUTION 1,000 ML/1,000 ML INFUS.BAG IV SCH (14:35)
[2017-03-09] MEDS: HEPARIN NA (PORCINE) 5,000 UNITS/ML 1ML VIAL SQ SCH ×2 (14:39→21:39)
--- NOTE | 2017-03-09 18:20 | CON.CARD ---
Consult Consult Specialty:: Cardiology Referred by:: Dr. Trinidad Reason for Consultation:: Pre-operative cardiac risk assessment of declan apodaca. - History of Present Illness Chief Complaint: RUQ pain with evidence of cholecystitis. Seen by declan Rodriguez planned. History of Present Illness: 81 year-old man with a PMHx of HTN, DM, hyperlipidemia, CAD s/p PCI/stent in the past with recurrent angina with evidence of moderate inferior wall stress induced ischemia from nuclear stress test 01/16/2017, Parkinson's disease, prostate cancer, GERD on zantac, admitted with severe right upper quadrant pain. He was seen by GI and surgery, Dr. Senior. Declan apodaca planned. Mr. Abraham had recurrent angina and found to have moderate inferior wall stress induced ischemia from nuclear stress test 01/16/2017. His LV systolic function is preserved. He has been managed medically in stable condition. He reports no recurrent chest pain, SOB at rest, palpitation, dizziness, syncope or near syncope. No edema, orthopnea or PND. He has limited exercise tolerance because of weakness and leg pain. 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 Cardio/Vascular: Yes: CAD, HTN, Hyperlipdemia Gastrointestinal: Yes: Constipation Renal/: Yes: BPH, Other Endocrine: Yes: Diabetes Mellitus - Alcohol/Substance Use Hx Alcohol Use: No - Smoking History Smoking history: Former smoker Have you smoked in the past 12 months: No Home Medications - Allergies Allergies/Adverse Reactions: Allergies Allergy/AdvReac Type Severity Reaction Status Date / Time No Known Drug Allergies Allergy Verified 03/08/17 16:17 - Home Medications Home Medications: Ambulatory Orders Gabapentin 300 mg PO TID 07/05/14 Aspirin [ASA -] 81 mg PO DAILY 03/06/16 Carbidopa/Levodopa [Rytary ER 61.25 mg-245 mg Cap] 1 each PO TID 03/06/16 Clopidogrel Bisulfate [Plavix -] 75 mg PO DAILY 03/06/16 Ergocalciferol (Vitamin D2) [Vitamin D2] 2,000 unit PO DAILY 03/06/16 Lisinopril 10 mg PO DAILY 03/06/16 Docusate Sodium [Colace -] 100 mg PO TID tab 01/20/17 Metoprolol Succinate [Toprol XL -] 25 mg PO DAILY #30 tab 01/20/17 [place]-3 Acid Ethyl Esters [Lovaza -] 2 gm PO BID cap 01/20/17 Sitagliptin Phosphate [Januvia -] 50 mg PO DAILY@0700 #30 tablet 01/20/17 Tamsulosin HCl [Flomax -] 0.4 mg PO DAILY@0830 #30 tab 01/20/17 Ezetimibe [Zetia] 10 mg PO DAILY 03/08/17 Insulin Aspart [Novolog] 0 unit SQ TID PRN 03/08/17 Insulin Glargine,Hum.rec.anlog [Lantus (nf)] 35 units SQ HS 03/08/17 Mirabegron [Myrbetriq] 50 mg PO DAILY 03/08/17 Ranitidine [Zantac -] 150 mg PO BID 03/08/17 Review of Systems - Review of Systems Constitutional: reports: No Symptoms Eyes: reports: No Symptoms HENT: reports: No Symptoms Neck: reports: No Symptoms Cardiovascular: reports: No Symptoms Respiratory: reports: Exercise Intolerance Gastrointestinal: reports: Abdominal Pain Genitourinary: reports: No Symptoms Musculoskeletal: reports: Back Pain, Joint Pain Integumentary: reports: No Symptoms Neurological: reports: Weakness Endocrine: reports: No Symptoms Hematology/Lymphatic: reports: No Symptoms - Risk Factors Known Risk Factors: Yes: Diabetes Mellitus, Hypercholesterolemia, Hypertension Vital Signs: Vital Signs Temperature 97.3 F L 03/09/17 15:11 Pulse Rate 89 03/09/17 15:11 Respiratory Rate 18 03/09/17 15:11 Blood Pressure 138/82 03/09/17 15:11 O2 Sat by Pulse Oximetry (%) 95 03/09/17 10:00 Constitutional: Yes: Well Nourished, No Distress, Calm Eyes: Yes: Conjunctiva Clear, EOM Intact HENT: Yes: Atraumatic, Normocephalic Neck: Yes: Supple, Trachea Midline Respiratory: Yes: Regular, CTA Bilaterally Gastrointestinal: Yes: Normal Bowel Sounds, Soft, Tenderness Cardiovascular: Yes: Regular Rate and Rhythm JVD: No PMI: Non-Displaced Heart Sounds: Yes: S1, S2 Murmur: Yes: Systolic Murmur, Grade 1 Musculoskeletal: Yes: Joint Stiffness, Other Edema: No Peripheral Pulses WNL: Yes Integumentary: Yes: WNL Neurological: Yes: WNL - Other Data Labs, Other Data: CBC, BMP 03/08/17 17:20 03/08/17 16:50 INR, PTT INR 1.40 (0.82-1.09) H 03/08/17 16:50 Troponin, BNP 03/08/17 16:30 Troponin I < 0.02 Troponin, BNP 03/08/17 16:30 Troponin I < 0.02 Normal sinus rhythm. Normal axis. LVH by voltage. No significant ST-T abnormalities. Imaging - Results EKG: Image Reviewed (03/08/2017: Normal sinus rhythm. Normal axis. LVH by voltage. No significant ST-T abnormalities.) Assessment/Plan 81 year-old man with a PMHx of HTN, DM, hyperlipidemia, CAD s/p PCI/stent in the past with recurrent angina with evidence of moderate inferior wall stress induced ischemia from nuclear stress test 01/16/2017, Parkinson's disease, prostate cancer, GERD on zantac, admitted with severe right upper quadrant pain. He was seen by GI and surgery, Dr. Senior. Lap constanza planned. Mr. Abraham has been stable from cardiac standpoint without recurrent angina or physical signs of CHF. He has normal cardiac function without significant valvular abnormalities from echocardiogram on 01/15/2017. His ECG showed no ischemic changes. His BP and heart rate are well controlled with current medications. Therefore, he is at low to intermediate risk of cardiac complications to the planned moderate risk lap constanza. There are no direct cardiac contraindication to the operation. The patient is medically optimized. There is no further cardiac test recommended at this time. We will see the patient post op.
[2017-03-09] MEDS: hydrOXYzine HCL 25 MG TABLET (FP) PO SCH (21:39)
[2017-03-09] MEDS: INSULIN DETEMIR 100 UNITS/ML MDV SQ SCH (21:43)
[2017-03-10] MEDS: METRONIDAZOLE 500 MG PREMIXED 500 MG/100 ML MG IVPB SCH ×3 (01:08→18:05)
[2017-03-10] MEDS: AMPICILLIN NA/SULBACTAM NA 1.5 GM in SODIUM CHLORIDE 100 ML IVPB SCH ×3 (01:39→17:11)
--- NOTE | 2017-03-10 05:25 | PN ---
Progress Note, Physician Chief Complaint: abdominal pain History of Present Illness: 81year-old male PMH Parkinson's, prostate ca, IDDDM, hypertension, hyperlipidemia, CAD with stents, GERD on zantac, presents with severe right upper quadrant pain. reports persistent abdominal pain. no other complaints - Current Medication List Current Medications: Active Medications Acetaminophen (Tylenol -) 650 mg PO Q6H PRN PRN Reason: FEVER OR PAIN Carbidopa/Levodopa (Sinemet *Cr* 50/200 -) 1 combo PO TID [facility] Last Admin: 03/09/17 21:39 Dose: 1 combo Ezetimibe (Zetia -) 10 mg PO DAILY [facility] Last Admin: 03/09/17 11:25 Dose: Not Given Heparin Sodium (Porcine) (Heparin -) 5,000 unit SQ BID [facility] Last Admin: 03/09/17 21:39 Dose: 5,000 unit Hydroxyzine HCl (Atarax -) 25 mg PO HS [facility] Last Admin: 03/09/17 21:39 Dose: 25 mg Famotidine (Pepcid 20 Mg/12 Ml Push) 20 mg in 12 mls @ 144 mls/hr IVPUSH BID [facility] Last Admin: 03/09/17 21:40 Dose: 144 mls/hr Ampicillin Sodium/Sulbactam (Sodium 1.5 gm/ Sodium Chloride) 100 mls @ 200 mls/ hr IVPB Q8H-IV [facility] Last Admin: 03/10/17 01:39 Dose: 200 mls/hr Metronidazole (Flagyl 500mg Premixed Ivpb -) 500 mg in 100 mls @ 100 mls/hr IVPB Q8H-IV [facility] Last Admin: 03/10/17 01:08 Dose: 100 mls/hr Lactated Ringer's (Lactated Ringers Solution) 1,000 ml in 1,000 mls @ 75 mls/ hr IV ASDIR [facility] Last Admin: 03/09/17 14:35 Dose: 75 mls/hr Insulin Aspart (Novolog Vial Sliding Scale -) 1 vial SQ ACHS [facility] PRN Reason: Protocol Last Admin: 03/09/17 21:45 Dose: 2 units Insulin Detemir (Levemir Vial) 25 units SQ HS [facility] Last Admin: 03/09/17 21:43 Dose: 25 units Lisinopril (Prinivil) 10 mg PO DAILY [facility] Last Admin: 03/09/17 09:53 Dose: 10 mg Ondansetron HCl (Zofran Injection) 4 mg IVPUSH Q4H PRN PRN Reason: NAUSEA AND/OR VOMITING Sitagliptin Phosphate (Januvia -) 25 mg PO DAILY@0700 [facility] Last Admin: 03/09/17 06:43 Dose: 25 mg - Objective Vital Signs: Vital Signs Temperature 97.2 F L 03/09/17 18:00 Pulse Rate 82 03/09/17 18:00 Respiratory Rate 18 03/09/17 20:36 Blood Pressure 160/88 03/09/17 18:00 O2 Sat by Pulse Oximetry (%) 96 03/09/17 20:36 Vital Signs Period Temp Pulse Resp BP Sys/Malcolm Pulse Ox Last 24 Hr 97.2 F-98.6 F 82-94 18-18 136-160/79-88 96-96 Constitutional: Yes: Well Nourished, No Distress, Calm, Obese Eyes: Yes: Conjunctiva Clear, EOM Intact HENT: Yes: Atraumatic, Normocephalic Neck: Yes: Supple, Trachea Midline Cardiovascular: Yes: Regular Rate and Rhythm, S1, S2 Respiratory: Yes: Regular, CTA Bilaterally Gastrointestinal: Yes: Normal Bowel Sounds, Soft, Abdomen, Obese, Tenderness ( deep palpation of RUQ) ...Rectal Exam: Yes: Deferred Genitourinary: No: CVA Tenderness - Left, CVA Tenderness - Right Extremities: No: Cool, Cyanosis Neurological: Yes: Alert, Oriented Psychiatric: Yes: Alert, Oriented Labs: CBC, BMP 03/08/17 17:20 03/08/17 16:50 INR, PTT INR 1.40 (0.82-1.09) H 03/08/17 16:50 CBC,CMP WBC 4.7 K/mm3 (4.0-10.0) 03/10/17 07:00 RBC 4.11 M/mm3 (4.00-5.60) 03/10/17 07:00 Hgb 13.2 GM/dL (11.7-16.9) 03/10/17 07:00 Hct 38.5 % (35.4-49) 03/10/17 07:00 MCV 93.8 fl (80-96) 03/10/17 07:00 MCH 32.1 pg (25.7-33.7) 03/10/17 07:00 MCHC 34.2 g/dl (32.0-35.9) 03/10/17 07:00 RDW 14.0 % (11.9-15.9) 03/10/17 07:00 Plt Count 193 K/MM3 (134-434) 03/10/17 07:00 MPV 8.9 fl (7.5-11.1) 03/10/17 07:00 Neutrophils % 54.5 % (42.8-82.8) 03/10/17 07:00 Lymphocytes % 26.4 % (8-40) 03/10/17 07:00 Monocytes % 10.4 % (3.8-10.2) H 03/10/17 07:00 Eosinophils % 7.4 % (0-4.5) H D 03/10/17 07:00 Basophils % 1.3 % (0-2.0) 03/10/17 07:00 ESR 39 mm/hr (0-20) H 03/09/17 01:00 Sodium 142 mmol/L (136-145) 03/10/17 07:00 Potassium 4.1 mmol/L (3.5-5.1) 03/10/17 07:00 Chloride 108 mmol/L (98-107) H 03/10/17 07:00 Carbon Dioxide 26 mmol/L (21-32) 03/10/17 07:00 Anion Gap 8 (8-16) 03/10/17 07:00 BUN 20 mg/dL (7-18) H D 03/10/17 07:00 Creatinine 1.2 mg/dL (0.7-1.3) 03/10/17 07:00 Creat Clearance w eGFR 57.82 (>60) 03/10/17 07:00 POC Glucometer 205 UNITS (80-120) 03/10/17 11:44 Random Glucose 117 mg/dL (74-106) H D 03/10/17 07:00 Calcium 9.0 mg/dL (8.5-10.1) 03/10/17 07:00 Total Bilirubin 1.3 mg/dL (0.2-1.0) H 03/10/17 07:00 Direct Bilirubin 0.8 mg/dL (0.0-0.2) H D 03/08/17 16:50 AST 82 U/L (15-37) H D 03/10/17 07:00 ALT 21 U/L (12-78) D 03/10/17 07:00 Alkaline Phosphatase 289 U/L (45-117) H 03/10/17 07:00 Creatine Kinase 344 IU/L (39-308) H 03/08/17 16:30 Creatine Kinase Index 2.1 % (0.0-5.0) 03/08/17 16:30 CK-MB (CK-2) 7.520 ng/mL (0.5-3.6) H 03/08/17 16:30 Troponin I < 0.02 ng/ml (0.00-0.05) 03/08/17 16:30 C-Reactive Protein 2.9 MG/DL (0.00-0.3) H 03/09/17 01:00 Total Protein 7.6 g/dl (6.4-8.2) 03/10/17 07:00 Albumin 2.6 g/dl (3.4-5.0) L 03/10/17 07:00 Lipase 157 U/L (73-393) 03/08/17 17:20 - ....Imaging MRI: Report Reviewed, Image Reviewed (no choledocholithiasis) Problem List - Problems (1) Chronic cholecystitis Assessment/Plan: 81 yo male MMP including CAD with stents presents with chronic right upper quadrant pain that can be attributed to chronic cholecystitis NPO and IVF hydration after midnight for surgery Seen and cleared by Cardiology and GI Discussed with patient risks, benefits and alternatives of laparoscopic possible open cholecystectomy, including but not limited to bleeding, infection , injury to adjacent structures, leak or injury, intraabdominal abscess, need for further procedures, ; alternatives include antibiotics, delayed or no surgery - risks of this include failure of nonoperative therapy, perforation, sepsis, recurrence, . Patient desires to proceed with operation - will take to OR for above. Informed consent signed for same. Code(s): K81.1 - CHRONIC CHOLECYSTITIS (2) Biliary colic Code(s): K80.50 - CALCULUS OF BILE DUCT W/O CHOLANGITIS OR CHOLECYST W/O OBST (3) JOSSELYN (acute kidney injury) Code(s): N17.9 - ACUTE KIDNEY FAILURE, UNSPECIFIED (4) CAD (coronary artery disease) Code(s): I25.10 - ATHSCL HEART DISEASE OF [place] CORONARY ARTERY W/O ANG PCTRS (5) Diabetes mellitus, insulin dependent (IDDM), uncontrolled Code(s): E10.65 - TYPE 1 DIABETES MELLITUS WITH HYPERGLYCEMIA Qualifiers: Chronic kidney disease stage: unspecified stage (6) Hypertension Code(s): I10 - ESSENTIAL (PRIMARY) HYPERTENSION
[2017-03-10] MEDS: INSULIN SLIDING SCALE (NOVOLOG) 1 VIAL SQ SCH ×4 (06:02→21:38)
[2017-03-10] MEDS: sitaGLIPtin PHOSPHATE 25 MG TABLET (FP) PO SCH (06:18)
[2017-03-10] MEDS: LACTATED RINGERS SOLUTION 1,000 ML/1,000 ML INFUS.BAG IV SCH ×2 (06:28→17:15)
--- NOTE | 2017-03-10 07:01 | CONS ---
DATE OF CONSULTATION: 03/09/2017 PULMONARY CONSULTATION REFERRING PHYSICIAN: Thania Trinidad M.D. HISTORY OF PRESENT ILLNESS: The patient is an 81-year-old white male with past medical history of prostate CA, insulin-dependent diabetes mellitus, hypertension, Parkinson's, hyperlipidemia, ASHD, status post stents, GERD, admitted to [facility] with complaints of severe right upper quadrant pain. The patient apparently increasing right upper quadrant pain without any radiation. The past week or so the pain increased in severity. He denied any nausea, vomiting or diaphoresis. He denied any hemoptysis. He was sent to the emergency room with the above. An abdominal ultrasound was performed, which revealed cholelithiasis, but no acute cholecystitis. He was evaluated by Surgery and is scheduled to undergo a laparoscopic cholecystectomy on Saturday. The patient has a history of tobacco use, quit greater than 40 years ago. He denies any history of occupational exposure to chemicals or fumes. He denies any history of COPD or asthma in the past. There is no history of recent travel. PAST MEDICAL HISTORY: ASHD, prostate CA, Parkinson's, insulin-dependent diabetes mellitus, hyperlipidemia, GERD, status post stents, hypertension. REVIEW OF SYSTEMS: Positive for orthopnea, which he states has been present since early youth. No PND. No chest pain. No palpitations. No cough. No hemoptysis. Positive right upper quadrant pain. No nausea. No vomiting. No change in bowels. No lower extremity edema. CURRENT MEDICATIONS: Include Zofran, Tylenol, Prinivil, Flagyl, Unasyn, heparin subcutaneously, Zetia, Sinemet, Januvia, Pepcid, Levemir. PHYSICAL EXAMINATION: General: The patient is a well-developed, well-nourished male, awake, alert, in no acute distress. Vitals: He is afebrile. Blood pressure is 152/86, respiratory rate 16. O2 saturation is 95% on room air. HEENT: Normocephalic, atraumatic. Neck: Supple. Heart: Regular S1, S2. Chest: A few bibasilar crackles. Abdomen: Soft. Bowel sounds are positive. Extremities: Without cyanosis or edema. DIAGNOSTIC STUDIES: BUN 28, creatinine 1.5, bilirubin 1.1, alkaline phosphatase 335. WBC 6.1, hemoglobin 14.4, hematocrit 42.2; platelet count 198,000. Chest x-ray revealed no acute infiltrates or effusions. Abdominal ultrasound revealed cholelithiasis and mild nonspecific gallbladder wall thickening. IMPRESSION: 1. Right upper quadrant pain consistent with secondary to cholelithiasis. 2. Atherosclerotic heart disease, status post stent. 3. History of prostatic carcinoma. 4. Diabetes mellitus. PLAN: At this time there is no pulmonary contraindication to anticipated surgery. DVT prophylaxis postoperatively, incentive spirometer postoperatively. I will follow closely with you. AWAIS FITCH M.D. [place]/[id number]
[2017-03-10 08:33] LABS: ALBUMIN 2.6 g/dl (3.4-5.0); ALK PHOS 289 U/L (45-117); ANION GAP 8 (8-16); BILIRUBIN,TOTAL 1.3 mg/dL (0.2-1.0); CO2 26 mmol/L (21-32); CREATININE 1.2 mg/dL (0.7-1.3); GLUCOSE,RANDOM 117 mg/dL (74-106); SGOT/AST 82 U/L (15-37); SGPT/ALT 21 U/L (12-78); TOT PROT 7.6 g/dl (6.4-8.2)
[2017-03-10 08:40] LABS: BASOPHIL 1.3 % (0-2.0); EOSINOPHIL 7.4 % (0-4.5); MCH 32.1 pg (25.7-33.7); MCHC 34.2 g/dl (32.0-35.9); MEAN CELL VOLUME 93.8 fl (80-96); MEAN PLT VOLUME 8.9 fl (7.5-11.1); NEUTROPHILS 54.5 % (42.8-82.8); PLATELET COUNT 193 K/MM3 (134-434); WHITE BLOOD COUNT 4.7 K/mm3 (4.0-10.0)
[2017-03-10] MEDS ORDERED: PT OWN MED DRAWER 7, Y5N ONE ×2 (09:52→17:03)
[2017-03-10] MEDS: LISINOPRIL 10 MG TABLET (FP) PO SCH (09:56)
[2017-03-10] MEDS: EZETIMIBE 10 MG TABLET (FP) PO SCH (09:56)
[2017-03-10] MEDS: HEPARIN NA (PORCINE) 5,000 UNITS/ML 1ML VIAL SQ SCH ×2 (09:56→21:36)
[2017-03-10] MEDS: FAMOTIDINE IV 20 MG/12 ML VIAL IVPUSH SCH ×2 (10:22→21:39)
--- NOTE | 2017-03-10 11:17 | PN ---
Progress Note (short form) - Note Progress Note: RENAL Pt seen and examined making urine and has no complaints tolerated food Last Vital Signs Temp Pulse Resp BP Pulse Ox 97.6 F 83 18 154/79 96 03/10/17 06:00 03/10/17 06:00 03/10/17 06:00 03/10/17 06:00 03/09/17 20:36 lungs clear cvs s1s2 rr abd soft ext +edema neuro a+ox3 skin no lesion CBC, BMP 03/10/17 07:00 03/10/17 07:00 Current Medications Generic Name Dose Route Start Last Admin Trade Name Freq PRN Reason Stop Dose Admin Acetaminophen 650 mg 03/09/17 00:24 Tylenol - PO Q6H PRN FEVER OR PAIN Carbidopa/Levodopa 1 combo 03/08/17 23:45 03/10/17 06:18 Sinemet *Cr* 50/200 - PO 1 combo TID JALIL Administration Ezetimibe 10 mg 03/09/17 10:00 03/10/17 09:56 Zetia - PO Not Given DAILY JALIL Heparin Sodium (Porcine) 5,000 unit 03/09/17 13:45 03/10/17 09:56 Heparin - SQ 5,000 unit BID JALIL Administration Hydroxyzine HCl 25 mg 03/09/17 22:00 03/09/17 21:39 Atarax - PO 25 mg HS JALIL Administration Famotidine 20 mg in 12 mls @ 144 mls/hr 03/09/17 10:00 03/10/17 10:22 Pepcid 20 Mg/12 Ml Push IVPUSH 144 mls/hr BID JALIL Administration Ampicillin Sodium/Sulbactam 100 mls @ 200 mls/hr 03/09/17 10:00 03/10/17 09: 55 Sodium 1.5 gm/ Sodium Chloride IVPB 200 mls/hr Q8H-IV JALIL Administration Metronidazole 500 mg in 100 mls @ 100 mls/hr 03/09/17 10:00 03/10/17 09:56 Flagyl 500mg Premixed Ivpb - IVPB 100 mls/hr Q8H-IV JAL[facility] Administration Lactated Ringer's 1,000 ml in 1,000 mls @ 75 mls/hr 03/09/17 13:00 03/10/17 06:28 Lactated Ringers Solution IV 75 mls/hr ASDIR JALIL Administration Insulin Aspart 1 vial 03/09/17 07:00 03/10/17 06:02 Novolog Vial Sliding Scale - SQ Not Given ACHS [facility] Protocol Insulin Detemir 25 units 03/09/17 22:00 03/09/17 21:43 Levemir Vial SQ 25 units HS JALIL Administration Lisinopril 10 mg 03/09/17 10:00 03/10/17 09:56 Prinivil PO 10 mg DAILY AJLIL Administration Ondansetron HCl 4 mg 03/09/17 00:24 Zofran Injection IVPUSH Q4H PRN NAUSEA AND/OR VOMITING Sitagliptin Phosphate 25 mg 03/09/17 07:00 03/10/17 06:18 Januvia - PO 25 mg DAILY@0700 JALIL Administration IMPRESSION DM HTN BPH probable obstructive uropathy stable ckd- non protinuric PLAN hold fluids given edema, particularly since he is eating start ivf when kept npo continue to monitor renal function MV
--- NOTE | 2017-03-10 11:45 | PN ---
Progress Note, Physician Chief Complaint: AWAKE ALERT FEELING BETTER AWAITING SURGERY TOMORROW MORNING LAPCHOL - Current Medication List Current Medications: Active Medications Acetaminophen (Tylenol -) 650 mg PO Q6H PRN PRN Reason: FEVER OR PAIN Carbidopa/Levodopa (Sinemet *Cr* 50/200 -) 1 combo PO TID [facility] Last Admin: 03/10/17 06:18 Dose: 1 combo Ezetimibe (Zetia -) 10 mg PO DAILY [facility] Last Admin: 03/10/17 09:56 Dose: Not Given Heparin Sodium (Porcine) (Heparin -) 5,000 unit SQ BID [facility] Last Admin: 03/10/17 09:56 Dose: 5,000 unit Hydroxyzine HCl (Atarax -) 25 mg PO HS [facility] Last Admin: 03/09/17 21:39 Dose: 25 mg Famotidine (Pepcid 20 Mg/12 Ml Push) 20 mg in 12 mls @ 144 mls/hr IVPUSH BID [facility] Last Admin: 03/10/17 10:22 Dose: 144 mls/hr Ampicillin Sodium/Sulbactam (Sodium 1.5 gm/ Sodium Chloride) 100 mls @ 200 mls/ hr IVPB Q8H-IV [facility] Last Admin: 03/10/17 09:55 Dose: 200 mls/hr Metronidazole (Flagyl 500mg Premixed Ivpb -) 500 mg in 100 mls @ 100 mls/hr IVPB Q8H-IV [facility] Last Admin: 03/10/17 09:56 Dose: 100 mls/hr Lactated Ringer's (Lactated Ringers Solution) 1,000 ml in 1,000 mls @ 75 mls/ hr IV ASDIR [facility] Last Admin: 03/10/17 06:28 Dose: 75 mls/hr Insulin Aspart (Novolog Vial Sliding Scale -) 1 vial SQ ACHS [facility] PRN Reason: Protocol Last Admin: 03/10/17 06:02 Dose: Not Given Insulin Detemir (Levemir Vial) 25 units SQ HS [facility] Last Admin: 03/09/17 21:43 Dose: 25 units Lisinopril (Prinivil) 10 mg PO DAILY [facility] Last Admin: 03/10/17 09:56 Dose: 10 mg Ondansetron HCl (Zofran Injection) 4 mg IVPUSH Q4H PRN PRN Reason: NAUSEA AND/OR VOMITING Sitagliptin Phosphate (Januvia -) 25 mg PO DAILY@0700 [facility] Last Admin: 03/10/17 06:18 Dose: 25 mg - Objective Vital Signs: Vital Signs Temperature 97.6 F 03/10/17 06:00 Pulse Rate 83 03/10/17 06:00 Respiratory Rate 18 03/10/17 06:00 Blood Pressure 154/79 03/10/17 06:00 O2 Sat by Pulse Oximetry (%) 96 03/09/17 20:36 Constitutional: Yes: Mild Distress Eyes: Yes: WNL HENT: Yes: WNL Neck: Yes: WNL Cardiovascular: Yes: WNL Respiratory: Yes: WNL Gastrointestinal: Yes: Tenderness, Rebound Genitourinary: Yes: WNL Musculoskeletal: Yes: WNL Extremities: Yes: WNL Edema: Yes Edema: LLE: Trace, RLE: Trace Peripheral Pulses WNL: Yes Integumentary: Yes: WNL Wound/Incision: Yes: Clean/Dry Neurological: Yes: WNL ...Motor Strength: WNL Psychiatric: Yes: WNL Labs: CBC, BMP 03/10/17 07:00 03/10/17 07:00 INR, PTT INR 1.40 (0.82-1.09) H 03/08/17 16:50 Problem List - Problems (1) Biliary colic Code(s): K80.50 - CALCULUS OF BILE DUCT W/O CHOLANGITIS OR CHOLECYST W/O OBST (2) Chronic cholecystitis Code(s): K81.1 - CHRONIC CHOLECYSTITIS (3) Diabetes Code(s): E11.9 - TYPE 2 DIABETES MELLITUS WITHOUT COMPLICATIONS Qualifiers: Diabetes mellitus type: type 2 (4) Diabetes mellitus, insulin dependent (IDDM), uncontrolled Code(s): E10.65 - TYPE 1 DIABETES MELLITUS WITH HYPERGLYCEMIA Qualifiers: Chronic kidney disease stage: unspecified stage (5) Elevated liver enzymes Code(s): R74.8 - ABNORMAL LEVELS OF OTHER SERUM ENZYMES Assessment/Plan IV ABX DVT PROPHYLAXIS GI AND SX EVAL CARDIAC CLEARANCE APPRECIATED LIQUID DIET NPO SATURDAY NIGHT BMG CHECKS PATIENT IS MEDICALLY CLEARED FOR LAPCHOL BENEFIT OUTWEIGHS THE RISK CONSIDERED INTERMEDIATE RISK ONLY PER CARDIOLOGY
[2017-03-10] MEDS: hydrOXYzine HCL 25 MG TABLET (FP) PO SCH (21:35)
[2017-03-10] MEDS: INSULIN DETEMIR 100 UNITS/ML MDV SQ SCH (21:37)
[2017-03-11] MEDS: METRONIDAZOLE 500 MG PREMIXED 500 MG/100 ML MG IVPB SCH ×3 (01:30→17:57)
[2017-03-11] MEDS: AMPICILLIN NA/SULBACTAM NA 1.5 GM in SODIUM CHLORIDE 100 ML IVPB SCH ×3 (02:25→17:20)
[2017-03-11] MEDS: sitaGLIPtin PHOSPHATE 25 MG TABLET (FP) PO SCH (06:06)
[2017-03-11] MEDS: INSULIN SLIDING SCALE (NOVOLOG) 1 VIAL SQ SCH ×4 (06:14→22:16)
[2017-03-11] MEDS: LACTATED RINGERS SOLUTION 1,000 ML/1,000 ML INFUS.BAG IV SCH (09:58)
[2017-03-11] MEDS ORDERED: fentaNYL CITRATE 250 MCG/5 ML VIAL ONE (10:33)
[2017-03-11] MEDS ORDERED: ROCURONIUM BROMIDE 50 MG/5 ML VIAL ONE ×2 (10:33→11:35)
[2017-03-11] MEDS ORDERED: ETOMIDATE 20 MG/10 ML AMPUL IVPUSH ONE (10:33)
[2017-03-11] MEDS ORDERED: PROPOFOL 20 ML ONE ×2 (10:33)
[2017-03-11] MEDS ORDERED: BUPIVACAINE HCL/PF 0.5% (5MG/ML) 10 ML VIAL ONE (10:35)
[2017-03-11] MEDS: FAMOTIDINE IV 20 MG/12 ML VIAL IVPUSH SCH ×2 (10:40→22:10)
[2017-03-11] MEDS: LISINOPRIL 10 MG TABLET (FP) PO SCH (10:40)
[2017-03-11] MEDS: EZETIMIBE 10 MG TABLET (FP) PO SCH (10:40)
[2017-03-11] MEDS: HEPARIN NA (PORCINE) 5,000 UNITS/ML 1ML VIAL SQ SCH ×2 (10:40→22:09)
[2017-03-11] MEDS ORDERED: DEXAMETHASONE SOD PHOSPHATE 4 MG/1 ML VIAL ONE (11:10)
[2017-03-11] MEDS ORDERED: NEOSTIGMINE METHYLSULFATE 0.5 MG/ML - 10 ML MDV ONE (11:30)
[2017-03-11] MEDS ORDERED: GLYCOPYRROLATE 0.2 MG/1 ML VIAL ONE (11:32)
--- NOTE | 2017-03-11 11:36 | PN ---
Progress Note, Physician Chief Complaint: Abdominal pain History of Present Illness: Patient in OR - Current Medication List Current Medications: Active Medications Acetaminophen (Tylenol -) 650 mg PO Q6H PRN PRN Reason: FEVER OR PAIN Carbidopa/Levodopa (Sinemet *Cr* 50/200 -) 1 combo PO TID [facility] Last Admin: 03/11/17 06:13 Dose: Not Given Ezetimibe (Zetia -) 10 mg PO DAILY [facility] Last Admin: 03/11/17 10:40 Dose: Not Given Heparin Sodium (Porcine) (Heparin -) 5,000 unit SQ BID [facility] Last Admin: 03/11/17 10:40 Dose: Not Given Hydroxyzine HCl (Atarax -) 25 mg PO HS [facility] Last Admin: 03/10/17 21:35 Dose: 25 mg Famotidine (Pepcid 20 Mg/12 Ml Push) 20 mg in 12 mls @ 144 mls/hr IVPUSH BID [facility] Last Admin: 03/11/17 10:40 Dose: Not Given Ampicillin Sodium/Sulbactam (Sodium 1.5 gm/ Sodium Chloride) 100 mls @ 200 mls/ hr IVPB Q8H-IV [facility] Last Admin: 03/11/17 09:09 Dose: 200 mls/hr Metronidazole (Flagyl 500mg Premixed Ivpb -) 500 mg in 100 mls @ 100 mls/hr IVPB Q8H-IV [facility] Last Admin: 03/11/17 09:57 Dose: 100 mls/hr Lactated Ringer's (Lactated Ringers Solution) 1,000 ml in 1,000 mls @ 75 mls/ hr IV ASDIR [facility] Last Admin: 03/11/17 09:58 Dose: 75 mls/hr Insulin Aspart (Novolog Vial Sliding Scale -) 1 vial SQ ACHS [facility] PRN Reason: Protocol Last Admin: 03/11/17 06:14 Dose: Not Given Insulin Detemir (Levemir Vial) 25 units SQ HS [facility] Last Admin: 03/10/17 21:37 Dose: 25 units Lisinopril (Prinivil) 10 mg PO DAILY [facility] Last Admin: 03/11/17 10:40 Dose: Not Given Ondansetron HCl (Zofran Injection) 4 mg IVPUSH Q4H PRN PRN Reason: NAUSEA AND/OR VOMITING Sitagliptin Phosphate (Januvia -) 25 mg PO DAILY@0700 [facility] Last Admin: 03/11/17 06:06 Dose: Not Given - Objective Vital Signs: Vital Signs Temperature 97.8 F 03/11/17 09:12 Pulse Rate 80 03/11/17 09:12 Respiratory Rate 20 03/11/17 09:12 Blood Pressure 164/84 03/11/17 09:12 O2 Sat by Pulse Oximetry (%) 97 03/11/17 09:00 Labs: CBC, BMP 03/10/17 07:00 03/10/17 07:00 INR, PTT INR 1.40 (0.82-1.09) H 03/08/17 16:50 Problem List - Problems (1) Chronic cholecystitis Assessment/Plan: -seen by Surgery -cleared by Pulmonary and cardiology -in OR today for choleycystectomy Code(s): K81.1 - CHRONIC CHOLECYSTITIS (2) Diabetes mellitus, insulin dependent (IDDM), uncontrolled Assessment/Plan: -uncontrolled at A1c at 9.3 -diabetic diet -endocrinology consult -on Januvia, levemir and novolog sliding scale Code(s): E10.65 - TYPE 1 DIABETES MELLITUS WITH HYPERGLYCEMIA Qualifiers: Chronic kidney disease stage: unspecified stage (3) Chronic kidney disease Assessment/Plan: -seen by Nephrology -repeat in AM Code(s): N18.9 - CHRONIC KIDNEY DISEASE, UNSPECIFIED Assessment/Plan see problem list
[2017-03-11] MEDS ORDERED: ePHEDrine SULFATE 50 MG/1 ML AMPULE ONE (11:41)
[2017-03-11] MEDS ORDERED: BUPIVACAINE HCL/PF 0.5% (5MG/ML) 10 ML VIAL IJ ONE (11:54)
--- NOTE | 2017-03-11 12:26 | OP ---
Operative Note - Note: Operative Date: 03/11/17 Pre-Operative Diagnosis: acute on chronic cholecystitis Operation: laparoscopic cholecystectomy Findings: liver fibrosis, cobblestone appearance, thin walled distended gall bladder, critical view identified. Post-Operative Diagnosis: Same as Pre-op Surgeon: Bebo Senior Robotic Machine Tender Production: Zana Esparza Anesthesiologist/FUSING MACHINE TENDER: Claudia Kellogg Anesthesia: General, Local Specimens Removed: gallbladder Estimated Blood Loss (mls): 10 Drains & Tubes with Location: none Fluid Volume Replaced (mls): 1,200
[2017-03-11] MEDS ORDERED: morphine CARPU-JECT 2 MG/1 ML DISP.SYRIN IVPUSH PRN (12:29)
[2017-03-11] MEDS ORDERED: ONDANSETRON 4 MG/2 ML VIAL IVPUSH PRN (12:46)
[2017-03-11] MEDS ORDERED: LACTATED RINGERS SOLUTION 1,000 ML/1,000 ML INFUS.BAG IV SCH (12:46)
[2017-03-11] MEDS ORDERED: morphine SULFATE 4 MG/ML VIAL IVPUSH ONE (12:46)
--- NOTE | 2017-03-11 13:11 | PN ---
Progress Note, Physician History of Present Illness: Pt seen and examined at bedside. He is in the recovery room. He just had a cholecystectomy. - Current Medication List Current Medications: Active Medications Acetaminophen (Tylenol -) 650 mg PO Q6H PRN PRN Reason: FEVER OR PAIN Carbidopa/Levodopa (Sinemet *Cr* 50/200 -) 1 combo PO TID [facility] Ezetimibe (Zetia -) 10 mg PO DAILY JALIL Fentanyl (Sublimaze Injection -) 50 mcg IVPUSH [id number] PRN PRN Reason: PAIN Heparin Sodium (Porcine) (Heparin -) 5,000 unit SQ BID JALIL Hydroxyzine HCl (Atarax -) 25 mg PO HS [facility]AL[facility] Ampicillin Sodium/Sulbactam (Sodium 1.5 gm/ Sodium Chloride) 100 mls @ 200 mls/ hr IVPB Q8H-IV JALIL Lactated Ringer's (Lactated Ringers Solution) 1,000 ml in 1,000 mls @ 75 mls/ hr IV ASDIR JALIL Metronidazole (Flagyl 500mg Premixed Ivpb -) 500 mg in 100 mls @ 100 mls/hr IVPB Q8H-IV [facility] Famotidine (Pepcid 20 Mg/12 Ml Push) 20 mg in 12 mls @ 144 mls/hr IVPUSH BID JAL[facility] Insulin Aspart (Novolog Vial Sliding Scale -) 1 vial SQ ACHS [facility] PRN Reason: Protocol Insulin Detemir (Levemir Vial) 25 units SQ HS [facility] Lisinopril (Prinivil) 10 mg PO DAILY [facility] Morphine Sulfate (Morphine Injection -) 4 mg IVPUSH NOW PRN PRN Reason: PAIN LEVEL 6-10 Ondansetron HCl (Zofran Injection) 4 mg IVPUSH Q4H PRN PRN Reason: NAUSEA AND/OR VOMITING Sitagliptin Phosphate (Januvia -) 25 mg PO DAILY@0700 [facility] - Objective Vital Signs: Vital Signs Temperature 97.8 F 03/11/17 09:12 Pulse Rate 80 03/11/17 09:12 Respiratory Rate 20 03/11/17 09:12 Blood Pressure 164/84 03/11/17 09:12 O2 Sat by Pulse Oximetry (%) 97 03/11/17 09:00 Constitutional: Yes: Calm Eyes: Yes: Conjunctiva Clear HENT: Yes: Atraumatic Neck: Yes: Supple Cardiovascular: Yes: S1 Respiratory: Yes: CTA Bilaterally, On Nasal O2 Gastrointestinal: Yes: Other (dressing in place) Genitourinary: Yes: WNL Musculoskeletal: Yes: Muscle Weakness Edema: Yes Edema: LLE: Trace, RLE: Trace Neurological: Yes: Other (drowsy) Labs: CBC, BMP 03/10/17 07:00 03/10/17 07:00 INR, PTT INR 1.40 (0.82-1.09) H 03/08/17 16:50 Problem List - Problems (1) Biliary colic Code(s): K80.50 - CALCULUS OF BILE DUCT W/O CHOLANGITIS OR CHOLECYST W/O OBST (2) Chronic kidney disease Code(s): N18.9 - CHRONIC KIDNEY DISEASE, UNSPECIFIED (3) CAD (coronary artery disease) Code(s): I25.10 - ATHSCL HEART DISEASE OF [place] CORONARY ARTERY W/O ANG PCTRS Assessment/Plan Current Medications Generic Name Dose Route Start Last Admin Trade Name Freq PRN Reason Stop Dose Admin Acetaminophen 650 mg 03/11/17 12:46 Tylenol - PO Q6H PRN FEVER OR PAIN Carbidopa/Levodopa 1 combo 03/11/17 14:00 Sinemet *Cr* 50/200 - PO TID JALIL Ezetimibe 10 mg 03/12/17 10:00 Zetia - PO DAILY JALIL Fentanyl 50 mcg 03/11/17 12:54 Sublimaze Injection - IVPUSH [id number] PRN PAIN Heparin Sodium (Porcine) 5,000 unit 03/11/17 22:00 Heparin - SQ BID JALIL Hydroxyzine HCl 25 mg 03/11/17 22:00 Atarax - PO HS JALIL Ampicillin Sodium/Sulbactam 100 mls @ 200 mls/hr 03/11/17 18:00 Sodium 1.5 gm/ Sodium Chloride IVPB Q8H-IV JAL[facility] Lactated Ringer's 1,000 ml in 1,000 mls @ 75 mls/hr 03/11/17 12:46 Lactated Ringers Solution IV ASDIR JAL[facility] Metronidazole 500 mg in 100 mls @ 100 mls/hr 03/11/17 18:00 Flagyl 500mg Premixed Ivpb - IVPB Q8H-IV [facility] Famotidine 20 mg in 12 mls @ 144 mls/hr 03/11/17 22:00 Pepcid 20 Mg/12 Ml Push IVPUSH BID [facility] Insulin Aspart 1 vial 03/11/17 16:30 Novolog Vial Sliding Scale - SQ ACHS [facility] Protocol Insulin Detemir 25 units 03/11/17 22:00 Levemir Vial SQ HS [facility] Lisinopril 10 mg 03/12/17 10:00 Prinivil PO DAILY [facility] Morphine Sulfate 4 mg 03/11/17 12:46 Morphine Injection - IVPUSH NOW PRN PAIN LEVEL 6-10 Ondansetron HCl 4 mg 03/11/17 12:46 Zofran Injection IVPUSH Q4H PRN NAUSEA AND/OR VOMITING Sitagliptin Phosphate 25 mg 03/12/17 07:00 Januvia - PO DAILY@0700 [facility] Impression 1. CKD 2. HTN 3. chronic cholecystitis s/p lap constanza 4. DM 5. hematuria 6. abdominal pain Plan - can stop fluids once he is eating - monitor renal function - renal function is stable - will order bmp for am - avoid nsaids Dr Beckford
--- NOTE | 2017-03-11 13:29 | SURG ---
Surgery Policy Value Calculator Note Policy Value Calculator: Zana Esparza PA-C Date of Service: 03/11/17 Diagnosis: acute on chronic cholecystitis Procedure: laparoscopic cholecystectomy I was present for the entirety of the operative procedure. For further detail, please refer to operative report. Visit type - Case Type Case Type: ED Admission - Emergency Emergency Visit: Yes ED Registration Date: 03/09/17 Care time: The patient presented to the Emergency Department on the above date and was hospitalized for further evaluation of their emergent condition. - New patient This patient is new to me today: Yes Date on this admission: 03/11/17
[2017-03-11] MEDS ORDERED: PT OWN MED DRAWER 7, Y5N ONE ×4 (14:26→23:10)
[2017-03-11] MEDS: ACETAMINOPHEN 325 MG TABLET (FP) PO PRN ×2 (14:52→23:11)
[2017-03-11] MEDS ORDERED: LISINOPRIL 10 MG TABLET (FP) PO ONE (15:00)
--- NOTE | 2017-03-11 18:01 | PN ---
Progress Note, Physician Chief Complaint: AWAKE ALERT S/P LAPCHOL NAD DENIES CHEST PAIN NO SOB - Current Medication List Current Medications: Active Medications Acetaminophen (Tylenol -) 650 mg PO Q6H PRN PRN Reason: FEVER OR PAIN Last Admin: 03/11/17 14:52 Dose: 650 mg Carbidopa/Levodopa (Sinemet *Cr* 50/200 -) 1 combo PO TID [facility] Last Admin: 03/11/17 14:52 Dose: 1 combo Ezetimibe (Zetia -) 10 mg PO DAILY [facility] Fentanyl (Sublimaze Injection -) 50 mcg IVPUSH [id number] PRN PRN Reason: PAIN Last Admin: 03/11/17 13:00 Dose: 50 mcg Heparin Sodium (Porcine) (Heparin -) 5,000 unit SQ BID [facility] Hydroxyzine HCl (Atarax -) 25 mg PO HS [facility] Ampicillin Sodium/Sulbactam (Sodium 1.5 gm/ Sodium Chloride) 100 mls @ 200 mls/ hr IVPB Q8H-IV [facility] Last Admin: 03/11/17 17:20 Dose: 200 mls/hr Metronidazole (Flagyl 500mg Premixed Ivpb -) 500 mg in 100 mls @ 100 mls/hr IVPB Q8H-IV [facility] Last Admin: 03/11/17 17:57 Dose: 100 mls/hr Famotidine (Pepcid 20 Mg/12 Ml Push) 20 mg in 12 mls @ 144 mls/hr IVPUSH BID [facility] Insulin Aspart (Novolog Vial Sliding Scale -) 1 vial SQ ACHS [facility] PRN Reason: Protocol Last Admin: 03/11/17 17:20 Dose: 2 units Insulin Detemir (Levemir Vial) 25 units SQ HS [facility] Lisinopril (Prinivil) 10 mg PO DAILY [facility] Ondansetron HCl (Zofran Injection) 4 mg IVPUSH Q4H PRN PRN Reason: NAUSEA AND/OR VOMITING Sitagliptin Phosphate (Januvia -) 25 mg PO DAILY@0700 [facility] - Objective Vital Signs: Vital Signs Temperature 97.8 F 03/11/17 14:20 Pulse Rate 89 03/11/17 14:20 Respiratory Rate 18 03/11/17 14:20 Blood Pressure 173/79 03/11/17 14:20 O2 Sat by Pulse Oximetry (%) 96 03/11/17 14:20 Constitutional: Yes: Mild Distress Eyes: Yes: WNL HENT: Yes: WNL Neck: Yes: WNL Cardiovascular: Yes: WNL Respiratory: Yes: WNL Gastrointestinal: Yes: Tenderness Genitourinary: Yes: WNL Musculoskeletal: Yes: WNL Extremities: Yes: WNL Edema: No Peripheral Pulses WNL: Yes Integumentary: Yes: WNL Wound/Incision: Yes: Clean/Dry Neurological: Yes: WNL ...Motor Strength: WNL Psychiatric: Yes: WNL Labs: CBC, BMP 03/10/17 07:00 03/10/17 07:00 INR, PTT INR 1.40 (0.82-1.09) H 03/08/17 16:50 Problem List - Problems (1) Biliary colic Code(s): K80.50 - CALCULUS OF BILE DUCT W/O CHOLANGITIS OR CHOLECYST W/O OBST (2) Chronic cholecystitis Code(s): K81.1 - CHRONIC CHOLECYSTITIS (3) Diabetes Code(s): E11.9 - TYPE 2 DIABETES MELLITUS WITHOUT COMPLICATIONS Qualifiers: Diabetes mellitus type: type 2 (4) Diabetes mellitus, insulin dependent (IDDM), uncontrolled Code(s): E10.65 - TYPE 1 DIABETES MELLITUS WITH HYPERGLYCEMIA Qualifiers: Chronic kidney disease stage: unspecified stage (5) Elevated liver enzymes Code(s): R74.8 - ABNORMAL LEVELS OF OTHER SERUM ENZYMES Assessment/Plan S/P LAPCHOL CHECK LABS IN AM OOB TO CHAIR INCENTIVE SPIROMETRY DVT PROPHYLAXIS SVT/TEDS PT EVAL
[2017-03-11] MEDS ORDERED: FAMOTIDINE IV 20 MG/12 ML VIAL IVPUSH SCH (22:00)
[2017-03-11] MEDS ORDERED: INSULIN DETEMIR 100 UNITS/ML MDV SQ SCH (22:00)
[2017-03-11] MEDS: hydrOXYzine HCL 25 MG TABLET (FP) PO SCH (22:09)
--- NOTE | 2017-03-11 22:54 | CONSULT ---
Consult Consult Specialty:: endocrine Referred by:: dr.rabadi johnson Reason for Consultation:: diabetes mellitus - History of Present Illness Chief Complaint: abdominal pain History of Present Illness: 81year-old male PMH Parkinson's, prostate ca, IDDDM, hypertension, hyperlipidemia, CAD with stents, GERD on zantac, presents with severe right upper quadrant pain. 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 Cardio/Vascular: Yes: CAD, HTN, Hyperlipdemia Gastrointestinal: Yes: Constipation Renal/: Yes: BPH, Other Endocrine: Yes: Diabetes Mellitus - Alcohol/Substance Use Hx Alcohol Use: No - Smoking History Smoking history: Former smoker Have you smoked in the past 12 months: No Home Medications - Allergies Allergies/Adverse Reactions: Allergies Allergy/AdvReac Type Severity Reaction Status Date / Time No Known Drug Allergies Allergy Verified 03/08/17 16:17 - Home Medications Home Medications: Ambulatory Orders Gabapentin 300 mg PO TID 07/05/14 Aspirin [ASA -] 81 mg PO DAILY 03/06/16 Carbidopa/Levodopa [Rytary ER 61.25 mg-245 mg Cap] 1 each PO TID 03/06/16 Clopidogrel Bisulfate [Plavix -] 75 mg PO DAILY 03/06/16 Ergocalciferol (Vitamin D2) [Vitamin D2] 2,000 unit PO DAILY 03/06/16 Lisinopril 10 mg PO DAILY 03/06/16 Docusate Sodium [Colace -] 100 mg PO TID tab 01/20/17 Metoprolol Succinate [Toprol XL -] 25 mg PO DAILY #30 tab 01/20/17 [place]-3 Acid Ethyl Esters [Lovaza -] 2 gm PO BID cap 01/20/17 Sitagliptin Phosphate [Januvia -] 50 mg PO DAILY@0700 #30 tablet 01/20/17 Tamsulosin HCl [Flomax -] 0.4 mg PO DAILY@0830 #30 tab 01/20/17 Ezetimibe [Zetia] 10 mg PO DAILY 03/08/17 Insulin Aspart [Novolog] 0 unit SQ TID PRN 03/08/17 Insulin Glargine,Hum.rec.anlog [Lantus (nf)] 35 units SQ HS 03/08/17 Mirabegron [Myrbetriq] 50 mg PO DAILY 03/08/17 Ranitidine [Zantac -] 150 mg PO BID 03/08/17 Review of Systems - Review of Systems Constitutional: reports: Loss of Appetite Eyes: reports: No Symptoms HENT: reports: No Symptoms Neck: reports: No Symptoms Cardiovascular: reports: No Symptoms Respiratory: reports: Exercise Intolerance, SOB on Exertion Gastrointestinal: reports: Abdominal Pain Genitourinary: reports: No Symptoms Breasts: reports: No Symptoms Reported Musculoskeletal: reports: Back Pain, Muscle Pain, Muscle Cramps, Muscle Weakness Integumentary: reports: No Symptoms Neurological: reports: Unsteady Gait, Weakness Endocrine: reports: No Symptoms Hematology/Lymphatic: reports: No Symptoms Physical Exam Vital Signs: Vital Signs Temperature 98.3 F 03/11/17 18:25 Pulse Rate 107 H 03/11/17 18:25 Respiratory Rate 19 03/11/17 18:25 Blood Pressure 141/75 03/11/17 18:25 O2 Sat by Pulse Oximetry (%) 96 03/11/17 14:20 Constitutional: Yes: Calm Eyes: Yes: EOM Intact HENT: Yes: Normocephalic Neck: Yes: Trachea Midline Cardiovascular: Yes: Regular Rate and Rhythm Respiratory: Yes: CTA Bilaterally Gastrointestinal: Yes: Hypoactive Bowel Sounds ...Rectal Exam: Yes: Deferred Renal/: Yes: WNL Breast(s): Yes: WNL Musculoskeletal: Yes: WNL Extremities: Yes: WNL Edema: No Wound/Incision: Yes: Clean/Dry Neurological: Yes: Alert, Oriented Labs: CBC, BMP 03/10/17 07:00 03/10/17 07:00 Problem List - Problems (1) Biliary colic Code(s): K80.50 - CALCULUS OF BILE DUCT W/O CHOLANGITIS OR CHOLECYST W/O OBST (2) Chronic cholecystitis Code(s): K81.1 - CHRONIC CHOLECYSTITIS (3) Chronic kidney disease Code(s): N18.9 - CHRONIC KIDNEY DISEASE, UNSPECIFIED (4) JOSSELYN (acute kidney injury) Code(s): N17.9 - ACUTE KIDNEY FAILURE, UNSPECIFIED (5) Diabetes Code(s): E11.9 - TYPE 2 DIABETES MELLITUS WITHOUT COMPLICATIONS Qualifiers: Diabetes mellitus type: type 2 (6) Diabetes mellitus, insulin dependent (IDDM), uncontrolled Code(s): E10.65 - TYPE 1 DIABETES MELLITUS WITH HYPERGLYCEMIA Qualifiers: Chronic kidney disease stage: unspecified stage Assessment/Plan Current Active Problems Biliary colic (Acute) Chronic cholecystitis (Acute) Chronic kidney disease (Acute) diabetes mellitus hyperglycemia diabetic nephropathy parkinsons disease Laboratory Results - last 24 hr 03/08/17 03/11/17 03/11/17 23:02 05:54 11:05 POC Glucometer 163.95978 143 127 Laboratory Tests 01/19/17 01/19/17 01/19/17 05:18 06:04 11:21 WBC RBC Hgb Hct MCV MCH MCHC RDW Plt Count MPV Lymphocytes % Sodium 137 Potassium 4.5 Chloride 102 Carbon Dioxide 27 Anion Gap 8 BUN 31 H Creatinine 1.6 H Creat Clearance w eGFR Random Glucose 275 H D POC Glucometer 267 387 AST 01/19/17 01/19/17 03/10/17 17:17 21:29 07:00 WBC 4.7 RBC 4.11 Hgb 13.2 Hct 38.5 MCV 93.8 MCH 32.1 MCHC 34.2 RDW 14.0 Plt Count 193 MPV 8.9 Lymphocytes % 26.4 Sodium Potassium Chloride Carbon Dioxide Anion Gap BUN Creatinine Creat Clearance w eGFR Random Glucose POC Glucometer 399 333 AST 03/10/17 03/10/17 03/10/17 07:00 11:44 16:53 WBC RBC Hgb Hct MCV MCH MCHC RDW Plt Count MPV Lymphocytes % Sodium 142 Potassium 4.1 Chloride 108 H Carbon Dioxide 26 Anion Gap 8 BUN 20 H D Creatinine 1.2 Creat Clearance w eGFR 57.82 Random Glucose POC Glucometer 205 250 AST 82 H D 03/10/17 03/11/17 20:58 05:54 WBC RBC Hgb Hct MCV MCH MCHC RDW Plt Count MPV Lymphocytes % Sodium Potassium Chloride Carbon Dioxide Anion Gap BUN Creatinine Creat Clearance w eGFR Random Glucose POC Glucometer 358 143 AST plan: bgm qid novolog scale coverage since surgical interventio post op resume levemir 25 units am romeo michel ck [id number]
[2017-03-12] MEDS: METRONIDAZOLE 500 MG PREMIXED 500 MG/100 ML MG IVPB SCH ×3 (02:46→17:36)
[2017-03-12] MEDS: AMPICILLIN NA/SULBACTAM NA 1.5 GM in SODIUM CHLORIDE 100 ML IVPB SCH ×3 (02:47→19:15)
[2017-03-12] MEDS: INSULIN SLIDING SCALE (NOVOLOG) 1 VIAL SQ SCH ×4 (06:44→23:24)
[2017-03-12] MEDS ORDERED: sitaGLIPtin PHOSPHATE 25 MG TABLET (FP) PO SCH (07:00)
[2017-03-12] MEDS ORDERED: INSULIN DETEMIR 100 UNITS/ML MDV SQ SCH (07:00)
[2017-03-12] MEDS ORDERED: PT OWN MED DRAWER 7, Y5N ONE ×3 (07:31→22:46)
--- NOTE | 2017-03-12 08:09 | CON.GI ---
Consult Consult Specialty:: GI - History of Present Illness History of Present Illness: Noted to have nodular liver at the time of cholecystectomy 2 days ago. The patient reports being told 30 y ago he had enlarged liver. Took milk thistle for that. No history of jaundice, viral, autoimmune, or genetic liver issues. No history of chronic alcohol, or NSAIDs use. No risk factors for viral hepatitis. on labs elevated PO, low normal PLT, elevatred liver chemistry, t. bili and ALP - History Source History Provided By: Patient, Medical Record - Past Medical History CHURN DRILLER: Yes: Parkinson's Cardio/Vascular: Yes: CAD, HTN, Hyperlipdemia Gastrointestinal: Yes: Constipation Renal/: Yes: BPH, Other Endocrine: Yes: Diabetes Mellitus - Alcohol/Substance Use Hx Alcohol Use: No - Smoking History Smoking history: Former smoker Have you smoked in the past 12 months: No Home Medications - Allergies Allergies/Adverse Reactions: Allergies Allergy/AdvReac Type Severity Reaction Status Date / Time No Known Drug Allergies Allergy Verified 03/08/17 16:17 - Home Medications Home Medications: Ambulatory Orders Gabapentin 300 mg PO TID 07/05/14 Aspirin [ASA -] 81 mg PO DAILY 03/06/16 Carbidopa/Levodopa [Rytary ER 61.25 mg-245 mg Cap] 1 each PO TID 03/06/16 Clopidogrel Bisulfate [Plavix -] 75 mg PO DAILY 03/06/16 Ergocalciferol (Vitamin D2) [Vitamin D2] 2,000 unit PO DAILY 03/06/16 Lisinopril 10 mg PO DAILY 03/06/16 Docusate Sodium [Colace -] 100 mg PO TID tab 01/20/17 Metoprolol Succinate [Toprol XL -] 25 mg PO DAILY #30 tab 01/20/17 [place]-3 Acid Ethyl Esters [Lovaza -] 2 gm PO BID cap 01/20/17 Sitagliptin Phosphate [Januvia -] 50 mg PO DAILY@0700 #30 tablet 01/20/17 Tamsulosin HCl [Flomax -] 0.4 mg PO DAILY@0830 #30 tab 01/20/17 Ezetimibe [Zetia] 10 mg PO DAILY 03/08/17 Insulin Aspart [Novolog] 0 unit SQ TID PRN 03/08/17 Insulin Glargine,Hum.rec.anlog [Lantus (nf)] 35 units SQ HS 03/08/17 Mirabegron [Myrbetriq] 50 mg PO DAILY 03/08/17 Ranitidine [Zantac -] 150 mg PO BID 03/08/17 Family Disease History - Family Disease History Family History: Unremarkable (non-contrib.) Review of Systems Findings/Remarks: please refer to H&P Physical Exam-GI Vital Signs: Vital Signs Temperature 98.3 F 03/12/17 02:00 Pulse Rate 93 H 03/12/17 02:00 Respiratory Rate 17 03/12/17 02:00 Blood Pressure 106/60 03/12/17 02:00 O2 Sat by Pulse Oximetry (%) 96 03/11/17 21:00 Constitutional: Yes: Well Nourished, No Distress, Calm Eyes: Yes: Conjunctiva Clear HENT: Yes: Atraumatic Neck: Yes: Supple Cardiovascular: Yes: Regular Rate and Rhythm Respiratory: Yes: Regular ...Auscultate: Yes: Normoactive Bowel Sounds ...Palpate: Yes: Tenderness (periumbilical (sx site)) Integumentary: No: Jaundice, Rash, Tattoos Neurological: Yes: Alert, Oriented Psychiatric: Yes: Alert Labs: CBC, BMP 03/10/17 07:00 03/10/17 07:00 INR, PTT INR 1.40 (0.82-1.09) H 03/08/17 16:50 Abnormal Lab Results 03/12/17 03/12/17 07:20 07:20 RBC 3.77 L BUN 29 H D Creatinine 1.9 H D Random Glucose 298 H D Calcium 8.2 L Total Bilirubin 1.4 H AST 67 H Alkaline Phosphatase 261 H Albumin 2.5 L CBCD WBC 6.5 K/mm3 (4.0-10.0) D 03/12/17 07:20 RBC 3.77 M/mm3 (4.00-5.60) L 03/12/17 07:20 Hgb 12.0 GM/dL (11.7-16.9) 03/12/17 07:20 Hct 35.9 % (35.4-49) 03/12/17 07:20 MCV 95.3 fl (80-96) 03/12/17 07:20 MCHC 33.5 g/dl (32.0-35.9) 03/12/17 07:20 RDW 14.1 % (11.9-15.9) 03/12/17 07:20 Plt Count 183 K/MM3 (134-434) 03/12/17 07:20 MPV 9.6 fl (7.5-11.1) 03/12/17 07:20 CMP Sodium 138 mmol/L (136-145) 03/12/17 07:20 Potassium 4.5 mmol/L (3.5-5.1) 03/12/17 07:20 Chloride 106 mmol/L (98-107) 03/12/17 07:20 Carbon Dioxide 24 mmol/L (21-32) 03/12/17 07:20 Anion Gap 8 (8-16) 03/12/17 07:20 BUN 29 mg/dL (7-18) H D 03/12/17 07:20 Creatinine 1.9 mg/dL (0.7-1.3) H D 03/12/17 07:20 Creat Clearance w eGFR 34.02 (>60) 03/12/17 07:20 Calcium 8.2 mg/dL (8.5-10.1) L 03/12/17 07:20 Total Bilirubin 1.4 mg/dL (0.2-1.0) H 03/12/17 07:20 AST 67 U/L (15-37) H 03/12/17 07:20 ALT 23 U/L (12-78) 03/12/17 07:20 Alkaline Phosphatase 261 U/L (45-117) H 03/12/17 07:20 Total Protein 7.4 g/dl (6.4-8.2) 03/12/17 07:20 Albumin 2.5 g/dl (3.4-5.0) L 03/12/17 07:20 Imaging - Results Ultrasound: Report Reviewed MRI: Report Reviewed Problem List - Problems (1) Chronic liver disease and cirrhosis Code(s): K74.60 - UNSPECIFIED CIRRHOSIS OF LIVER; K76.9 - LIVER DISEASE, UNSPECIFIED Assessment/Plan An 81 yom with likely liver cirrhosis based on visual description and elevated PT. Liver enzymes are elevated with recent constanza. Will rule out viral etiology. Strong suspicion for decades of metabolic liver disease/NAFLD leading to cirrhosis. Cannot order autoimune work up on an inpatient Avoid NSAIDs and all non essential OTC, prescription, herbal supplements. will follow when the labs are in.
[2017-03-12 08:32] LABS: BASOPHIL 0.6 % (0-2.0); EOSINOPHIL 0.6 % (0-4.5); MCH 31.9 pg (25.7-33.7); MCHC 33.5 g/dl (32.0-35.9); MEAN CELL VOLUME 95.3 fl (80-96); MEAN PLT VOLUME 9.6 fl (7.5-11.1); NEUTROPHILS 61.7 % (42.8-82.8); PLATELET COUNT 183 K/MM3 (134-434); RDW 14.1 % (11.9-15.9); WHITE BLOOD COUNT 6.5 K/mm3 (4.0-10.0)
[2017-03-12 08:58] LABS: ALBUMIN 2.5 g/dl (3.4-5.0); ANION GAP 8 (8-16); BILIRUBIN,TOTAL 1.4 mg/dL (0.2-1.0); CALCIUM 8.2 mg/dL (8.5-10.1); CO2 24 mmol/L (21-32); CREATININE 1.9 mg/dL (0.7-1.3); GLUCOSE,RANDOM 298 mg/dL (74-106); SGOT/AST 67 U/L (15-37); SGPT/ALT 23 U/L (12-78); TOT PROT 7.4 g/dl (6.4-8.2)
[2017-03-12 08:59] LABS: ALK PHOS 261 U/L (45-117)
--- NOTE | 2017-03-12 09:24 | PN ---
Progress Note, Physician Chief Complaint: abdominal pain History of Present Illness: 81year-old male PMH Parkinson's, prostate ca, IDDDM, hypertension, hyperlipidemia, CAD with stents, GERD on zantac, presents with severe right upper quadrant pain. POD#1 s/p Laparoscopic cholecystectomy. Reports that he bumped his belly on the table yesterday. There was bloody soaking of the umbilical dressing. Otherwise he is tolerating clears, voiding spontaneously, ambulating, no other complaints. - Current Medication List Current Medications: Active Medications Acetaminophen (Tylenol -) 650 mg PO Q6H PRN PRN Reason: FEVER OR PAIN Last Admin: 03/11/17 23:11 Dose: 650 mg Carbidopa/Levodopa (Sinemet *Cr* 50/200 -) 1 combo PO TID COUNTS INCLUDE 234 BEDS AT THE [facility] Last Admin: 03/12/17 06:43 Dose: 1 combo Ezetimibe (Zetia -) 10 mg PO DAILY COUNTS INCLUDE 234 BEDS AT THE [facility] Fentanyl (Sublimaze Injection -) 50 mcg IVPUSH [id number] PRN PRN Reason: PAIN Last Admin: 03/11/17 13:00 Dose: 50 mcg Heparin Sodium (Porcine) (Heparin -) 5,000 unit SQ BID COUNTS INCLUDE 234 BEDS AT [facility] Last Admin: 03/11/17 22:09 Dose: 5,000 unit Hydroxyzine HCl (Atarax -) 25 mg PO HS COUNTS INCLUDE 234 BEDS AT [facility] Last Admin: 03/11/17 22:09 Dose: 25 mg Ampicillin Sodium/Sulbactam (Sodium 1.5 gm/ Sodium Chloride) 100 mls @ 200 mls/ hr IVPB Q8H-IV COUNTS INCLUDE 234 BEDS AT THE [facility] Last Admin: 03/12/17 02:47 Dose: 200 mls/hr Metronidazole (Flagyl 500mg Premixed Ivpb -) 500 mg in 100 mls @ 100 mls/hr IVPB Q8H-IV COUNTS INCLUDE 234 BEDS AT [facility] Last Admin: 03/12/17 02:46 Dose: 100 mls/hr Famotidine (Pepcid 20 Mg/12 Ml Push) 20 mg in 12 mls @ 144 mls/hr IVPUSH BID COUNTS INCLUDE 234 BEDS AT [facility] Last Admin: 03/11/17 22:10 Dose: 144 mls/hr Insulin Aspart (Novolog Vial Sliding Scale -) 1 vial SQ ACHS [facility] PRN Reason: Protocol Last Admin: 03/12/17 06:44 Dose: 4 units Insulin Detemir (Levemir Vial) 25 units SQ AM [facility] Last Admin: 03/12/17 06:44 Dose: 25 units Lisinopril (Prinivil) 10 mg PO DAILY COUNTS INCLUDE 234 BEDS AT [facility] Ondansetron HCl (Zofran Injection) 4 mg IVPUSH Q4H PRN PRN Reason: NAUSEA AND/OR VOMITING - Objective Vital Signs: Vital Signs Temperature 98.3 F 03/12/17 02:00 Pulse Rate 93 H 03/12/17 02:00 Respiratory Rate 17 03/12/17 02:00 Blood Pressure 106/60 03/12/17 02:00 O2 Sat by Pulse Oximetry (%) 96 03/11/17 21:00 Vital Signs Period Temp Pulse Resp BP Sys/Malcolm Pulse Ox Last 24 Hr 97.3 F-98.3 F 81-107 14-20 106-188/60-86 95-100 Constitutional: Yes: No Distress, Calm, Obese Eyes: Yes: Conjunctiva Clear, EOM Intact HENT: Yes: Atraumatic, Normocephalic Neck: Yes: Supple, Trachea Midline Cardiovascular: Yes: Regular Rate and Rhythm, S1, S2 Respiratory: Yes: Regular, CTA Bilaterally Gastrointestinal: Yes: Normal Bowel Sounds, Soft Genitourinary: No: CVA Tenderness - Left, CVA Tenderness - Right Musculoskeletal: No: Muscle Pain, Muscle Weakness Edema: No Peripheral Pulses WNL: Yes Peripheral Pulses: Left Doralis Pedis: 2+, Right Dorsalis Pedis: 2+ Wound/Incision: Yes: Clean/Dry, Well Approximated, Dressing Dry and Intact (Dry gauze 4X4 sponge and tape replaced), Dressing Removed, Bleeding (blood fluid soaked gauze sponge. no active bleeding, no hematoma, no echymosis). No: Draining Neurological: Yes: Alert, Oriented Psychiatric: Yes: Alert, Oriented Labs: CBC, BMP 03/12/17 07:20 03/12/17 07:20 INR, PTT INR 1.40 (0.82-1.09) H 03/08/17 16:50 CBC,CMP WBC 6.5 K/mm3 (4.0-10.0) D 03/12/17 07:20 RBC 3.77 M/mm3 (4.00-5.60) L 03/12/17 07:20 Hgb 12.0 GM/dL (11.7-16.9) 03/12/17 07:20 Hct 35.9 % (35.4-49) 03/12/17 07:20 MCV 95.3 fl (80-96) 03/12/17 07:20 MCH 31.9 pg (25.7-33.7) 03/12/17 07:20 MCHC 33.5 g/dl (32.0-35.9) 03/12/17 07:20 RDW 14.1 % (11.9-15.9) 03/12/17 07:20 Plt Count 183 K/MM3 (134-434) 03/12/17 07:20 MPV 9.6 fl (7.5-11.1) 03/12/17 07:20 Neutrophils % 61.7 % (42.8-82.8) 03/12/17 07:20 Lymphocytes % 27.9 % (8-40) 03/12/17 07:20 Monocytes % 9.2 % (3.8-10.2) 03/12/17 07:20 Eosinophils % 0.6 % (0-4.5) D 03/12/17 07:20 Basophils % 0.6 % (0-2.0) 03/12/17 07:20 ESR 39 mm/hr (0-20) H 03/09/17 01:00 Sodium 138 mmol/L (136-145) 03/12/17 07:20 Potassium 4.5 mmol/L (3.5-5.1) 03/12/17 07:20 Chloride 106 mmol/L (98-107) 03/12/17 07:20 Carbon Dioxide 24 mmol/L (21-32) 03/12/17 07:20 Anion Gap 8 (8-16) 03/12/17 07:20 BUN 29 mg/dL (7-18) H D 03/12/17 07:20 Creatinine 1.9 mg/dL (0.7-1.3) H D 03/12/17 07:20 Creat Clearance w eGFR 34.02 (>60) 03/12/17 07:20 POC Glucometer 268 UNITS (80-120) 03/12/17 06:43 Random Glucose 298 mg/dL (74-106) H D 03/12/17 07:20 Calcium 8.2 mg/dL (8.5-10.1) L 03/12/17 07:20 Total Bilirubin 1.4 mg/dL (0.2-1.0) H 03/12/17 07:20 Direct Bilirubin 0.8 mg/dL (0.0-0.2) H D 03/08/17 16:50 AST 67 U/L (15-37) H 03/12/17 07:20 ALT 23 U/L (12-78) 03/12/17 07:20 Alkaline Phosphatase 261 U/L (45-117) H 03/12/17 07:20 Creatine Kinase 344 IU/L (39-308) H 03/08/17 16:30 Creatine Kinase Index 2.1 % (0.0-5.0) 03/08/17 16:30 CK-MB (CK-2) 7.520 ng/mL (0.5-3.6) H 03/08/17 16:30 Troponin I < 0.02 ng/ml (0.00-0.05) 03/08/17 16:30 C-Reactive Protein 2.9 MG/DL (0.00-0.3) H 03/09/17 01:00 Total Protein 7.4 g/dl (6.4-8.2) 03/12/17 07:20 Albumin 2.5 g/dl (3.4-5.0) L 03/12/17 07:20 Lipase 157 U/L (73-393) 03/08/17 17:20 Problem List - Problems (1) Chronic cholecystitis Assessment/Plan: 81 yo male MMP including CAD with stents presents with chronic right upper quadrant pain that can be attributed to acute on chronic cholecystitis POD#1 s/ p Laparoscopic cholecystectomy. Intra-operatively the liver was noted to be very fibrosed with a cobble stone appearance Advance diet as tolerated OOB and ambulate with assistance encourage incentive spirometry repeat labs hepatitis panel/ cirrhosis workup daily wound care discharge is at the discretion of the primary team Code(s): K81.1 - CHRONIC CHOLECYSTITIS (2) Biliary colic Code(s): K80.50 - CALCULUS OF BILE DUCT W/O CHOLANGITIS OR CHOLECYST W/O OBST (3) JOSSELYN (acute kidney injury) Code(s): N17.9 - ACUTE KIDNEY FAILURE, UNSPECIFIED (4) CAD (coronary artery disease) Code(s): I25.10 - ATHSCL HEART DISEASE OF [place] CORONARY ARTERY W/O ANG PCTRS (5) Diabetes mellitus, insulin dependent (IDDM), uncontrolled Code(s): E10.65 - TYPE 1 DIABETES MELLITUS WITH HYPERGLYCEMIA Qualifiers: Chronic kidney disease stage: unspecified stage (6) Hypertension Code(s): I10 - ESSENTIAL (PRIMARY) HYPERTENSION
[2017-03-12] MEDS: LISINOPRIL 10 MG TABLET (FP) PO SCH (09:48)
[2017-03-12] MEDS: HEPARIN NA (PORCINE) 5,000 UNITS/ML 1ML VIAL SQ SCH ×2 (09:49→23:40)
[2017-03-12] MEDS: EZETIMIBE 10 MG TABLET (FP) PO SCH (09:50)
[2017-03-12] MEDS: FAMOTIDINE IV 20 MG/12 ML VIAL IVPUSH SCH ×2 (09:50→23:50)
--- NOTE | 2017-03-12 14:47 | PN ---
Progress Note, Physician Chief Complaint: AWAKE ALERT RECOVERING WELL DENIES CHEST PAIN NO SOB - Current Medication List Current Medications: Active Medications Acetaminophen (Tylenol -) 650 mg PO Q6H PRN PRN Reason: FEVER OR PAIN Last Admin: 03/11/17 23:11 Dose: 650 mg Carbidopa/Levodopa (Sinemet *Cr* 50/200 -) 1 combo PO TID [facility] Last Admin: 03/12/17 14:21 Dose: 1 combo Ezetimibe (Zetia -) 10 mg PO DAILY [facility] Last Admin: 03/12/17 09:50 Dose: 10 mg Fentanyl (Sublimaze Injection -) 50 mcg IVPUSH [id number] PRN PRN Reason: PAIN Last Admin: 03/11/17 13:00 Dose: 50 mcg Heparin Sodium (Porcine) (Heparin -) 5,000 unit SQ BID [facility] Last Admin: 03/12/17 09:49 Dose: 5,000 unit Hydroxyzine HCl (Atarax -) 25 mg PO HS [facility] Last Admin: 03/11/17 22:09 Dose: 25 mg Ampicillin Sodium/Sulbactam (Sodium 1.5 gm/ Sodium Chloride) 100 mls @ 200 mls/ hr IVPB Q8H-IV [facility] Last Admin: 03/12/17 09:47 Dose: 200 mls/hr Metronidazole (Flagyl 500mg Premixed Ivpb -) 500 mg in 100 mls @ 100 mls/hr IVPB Q8H-IV [facility] Last Admin: 03/12/17 11:47 Dose: 100 mls/hr Famotidine (Pepcid 20 Mg/12 Ml Push) 20 mg in 12 mls @ 144 mls/hr IVPUSH BID [facility] Last Admin: 03/12/17 09:50 Dose: 144 mls/hr Insulin Aspart (Novolog Vial Sliding Scale -) 1 vial SQ ACHS [facility] PRN Reason: Protocol Last Admin: 03/12/17 11:45 Dose: 6 units Insulin Detemir (Levemir Vial) 25 units SQ AM [facility] Last Admin: 03/12/17 06:44 Dose: 25 units Lisinopril (Prinivil) 10 mg PO DAILY [facility] Last Admin: 03/12/17 09:48 Dose: 10 mg Ondansetron HCl (Zofran Injection) 4 mg IVPUSH Q4H PRN PRN Reason: NAUSEA AND/OR VOMITING - Objective Vital Signs: Vital Signs Temperature 99.3 F 03/12/17 14:00 Pulse Rate 95 H 03/12/17 14:00 Respiratory Rate 20 03/12/17 14:00 Blood Pressure 115/64 03/12/17 14:00 O2 Sat by Pulse Oximetry (%) 96 03/11/17 21:00 Constitutional: Yes: No Distress Eyes: Yes: WNL HENT: Yes: WNL Neck: Yes: WNL Cardiovascular: Yes: WNL Respiratory: Yes: WNL Gastrointestinal: Yes: Tenderness Genitourinary: Yes: WNL Musculoskeletal: Yes: WNL Extremities: Yes: WNL Edema: No Peripheral Pulses WNL: Yes Integumentary: Yes: WNL Wound/Incision: Yes: Clean/Dry Neurological: Yes: WNL ...Motor Strength: WNL Psychiatric: Yes: WNL Labs: CBC, BMP 03/12/17 07:20 03/12/17 07:20 INR, PTT INR 1.40 (0.82-1.09) H 03/08/17 16:50 Problem List - Problems (1) Biliary colic Code(s): K80.50 - CALCULUS OF BILE DUCT W/O CHOLANGITIS OR CHOLECYST W/O OBST (2) Chronic cholecystitis Code(s): K81.1 - CHRONIC CHOLECYSTITIS (3) Diabetes Code(s): E11.9 - TYPE 2 DIABETES MELLITUS WITHOUT COMPLICATIONS Qualifiers: Diabetes mellitus type: type 2 (4) Diabetes mellitus, insulin dependent (IDDM), uncontrolled Code(s): E10.65 - TYPE 1 DIABETES MELLITUS WITH HYPERGLYCEMIA Qualifiers: Chronic kidney disease stage: unspecified stage (5) Elevated liver enzymes Code(s): R74.8 - ABNORMAL LEVELS OF OTHER SERUM ENZYMES Assessment/Plan POD #1 OOB TO CHAIR INCENTIVE SPIROMETRY PAIN CONTROL CHECK LABS
--- NOTE | 2017-03-12 14:58 | PN ---
Progress Note (short form) - Note Progress Note: Anesthesia POD#1 S/P Lap Cholecystectomy under [facility] VSS,no N/V,food is advanced, pain is under control. Lora Saxena MD.
--- NOTE | 2017-03-12 15:25 | PN ---
Progress Note (short form) - Note Progress Note: Resting in NAD. No CP or SOB. Less abdominal discomfort. Intake & Output 03/09/17 03/10/17 03/11/17 03/12/17 23:59 23:59 23:59 23:59 Intake Total 1900 2450 2525 400 Output Total 150 800 Balance 1750 2450 1725 400 Weight 192 lb Last Vital Signs Temp Pulse Resp BP Pulse Ox 99.3 F 95 H 20 115/64 96 03/12/17 14:00 03/12/17 14:00 03/12/17 14:00 03/12/17 14:00 03/11/17 21:00 Active Medications Acetaminophen (Tylenol -) 650 mg PO Q6H PRN PRN Reason: FEVER OR PAIN Last Admin: 03/11/17 23:11 Dose: 650 mg Carbidopa/Levodopa (Sinemet *Cr* 50/200 -) 1 combo PO TID [facility] Last Admin: 03/12/17 14:21 Dose: 1 combo Ezetimibe (Zetia -) 10 mg PO DAILY [facility] Last Admin: 03/12/17 09:50 Dose: 10 mg Fentanyl (Sublimaze Injection -) 50 mcg IVPUSH [id number] PRN PRN Reason: PAIN Last Admin: 03/11/17 13:00 Dose: 50 mcg Heparin Sodium (Porcine) (Heparin -) 5,000 unit SQ BID [facility] Last Admin: 03/12/17 09:49 Dose: 5,000 unit Hydroxyzine HCl (Atarax -) 25 mg PO HS [facility] Last Admin: 03/11/17 22:09 Dose: 25 mg Ampicillin Sodium/Sulbactam (Sodium 1.5 gm/ Sodium Chloride) 100 mls @ 200 mls/ hr IVPB Q8H-IV [facility] Last Admin: 03/12/17 09:47 Dose: 200 mls/hr Metronidazole (Flagyl 500mg Premixed Ivpb -) 500 mg in 100 mls @ 100 mls/hr IVPB Q8H-IV [facility] Last Admin: 03/12/17 11:47 Dose: 100 mls/hr Famotidine (Pepcid 20 Mg/12 Ml Push) 20 mg in 12 mls @ 144 mls/hr IVPUSH BID [facility] Last Admin: 03/12/17 09:50 Dose: 144 mls/hr Insulin Aspart (Novolog Vial Sliding Scale -) 1 vial SQ ACHS [facility] PRN Reason: Protocol Last Admin: 03/12/17 11:45 Dose: 6 units Insulin Detemir (Levemir Vial) 25 units SQ AM [facility] Last Admin: 03/12/17 06:44 Dose: 25 units Lisinopril (Prinivil) 10 mg PO DAILY [facility] Last Admin: 03/12/17 09:48 Dose: 10 mg Ondansetron HCl (Zofran Injection) 4 mg IVPUSH Q4H PRN PRN Reason: NAUSEA AND/OR VOMITING Constitutional: Yes: No Distress Eyes: Yes: WNL HENT: Yes: WNL Neck: Yes: WNL Cardiovascular: Yes: WNL Respiratory: Yes: WNL Gastrointestinal: Yes: Less Tenderness Genitourinary: Yes: WNL Musculoskeletal: Yes: WNL Extremities: Yes: WNL Edema: No Peripheral Pulses WNL: Yes Integumentary: Yes: WNL Wound/Incision: Yes: Clean/Dry Neurological: Yes: WNL ...Motor Strength: WNL Psychiatric: Yes: WNL Labs: Laboratory Results - last 24 hr 03/11/17 03/11/17 03/12/17 17:01 22:08 06:43 WBC RBC Hgb Hct MCV MCH MCHC RDW Plt Count MPV Neutrophils % Lymphocytes % Monocytes % Eosinophils % Basophils % Sodium Potassium Chloride Carbon Dioxide Anion Gap BUN Creatinine Creat Clearance w eGFR POC Glucometer 229 321 268 Random Glucose Calcium Total Bilirubin AST ALT Alkaline Phosphatase Total Protein Albumin 03/12/17 03/12/17 03/12/17 07:20 07:20 11:25 WBC 6.5 D RBC 3.77 L Hgb 12.0 Hct 35.9 MCV 95.3 MCH 31.9 MCHC 33.5 RDW 14.1 Plt Count 183 MPV 9.6 Neutrophils % 61.7 Lymphocytes % 27.9 Monocytes % 9.2 Eosinophils % 0.6 D Basophils % 0.6 Sodium 138 Potassium 4.5 Chloride 106 Carbon Dioxide 24 Anion Gap 8 BUN 29 H D Creatinine 1.9 H D Creat Clearance w eGFR 34.02 POC Glucometer 325 Random Glucose 298 H D Calcium 8.2 L Total Bilirubin 1.4 H AST 67 H ALT 23 Alkaline Phosphatase 261 H Total Protein 7.4 Albumin 2.5 L Problem List - Problems (1) Chronic kidney disease Code(s): N18.9 - CHRONIC KIDNEY DISEASE, UNSPECIFIED (2) Biliary colic Code(s): K80.50 - CALCULUS OF BILE DUCT W/O CHOLANGITIS OR CHOLECYST W/O OBST (3) JOSSELYN (acute kidney injury) Code(s): N17.9 - ACUTE KIDNEY FAILURE, UNSPECIFIED (4) CAD (coronary artery disease) Code(s): I25.10 - ATHSCL HEART DISEASE OF [place] CORONARY ARTERY W/O ANG PCTRS (5) Diabetes Code(s): E11.9 - TYPE 2 DIABETES MELLITUS WITHOUT COMPLICATIONS Qualifiers: Diabetes mellitus type: type 2 (6) Elevated liver enzymes Code(s): R74.8 - ABNORMAL LEVELS OF OTHER SERUM ENZYMES (7) Hypertension Code(s): I10 - ESSENTIAL (PRIMARY) HYPERTENSION (8) Parkinson disease Code(s): G20 - PARKINSON'S DISEASE PULMONARY CONSULTATION DICTATED 03/09/17 IMP S/P LAP SUNG CHOLELITHIASIS ASHD S/P STENT H/O PROSTATE CA HTN DM CKD PLAN O2 NEEDED TO MAINTAIN SATURATION VTE PROPHYLAXIS INCENTIVE SPIROMETRY ANTIBIOTICS PO TOLERATED PER SURGERY DR HUERTA
--- NOTE | 2017-03-12 16:13 | PN ---
Progress Note, Physician History of Present Illness: Pt seen and examined at bedside. He is awake and alert. He denies shortness of breath. - Current Medication List Current Medications: Active Medications Acetaminophen (Tylenol -) 650 mg PO Q6H PRN PRN Reason: FEVER OR PAIN Last Admin: 03/11/17 23:11 Dose: 650 mg Carbidopa/Levodopa (Sinemet *Cr* 50/200 -) 1 combo PO TID [facility] Last Admin: 03/12/17 14:21 Dose: 1 combo Ezetimibe (Zetia -) 10 mg PO DAILY [facility] Last Admin: 03/12/17 09:50 Dose: 10 mg Fentanyl (Sublimaze Injection -) 50 mcg IVPUSH [id number] PRN PRN Reason: PAIN Last Admin: 03/11/17 13:00 Dose: 50 mcg Heparin Sodium (Porcine) (Heparin -) 5,000 unit SQ BID [facility] Last Admin: 03/12/17 09:49 Dose: 5,000 unit Hydroxyzine HCl (Atarax -) 25 mg PO HS [facility] Last Admin: 03/11/17 22:09 Dose: 25 mg Ampicillin Sodium/Sulbactam (Sodium 1.5 gm/ Sodium Chloride) 100 mls @ 200 mls/ hr IVPB Q8H-IV [facility] Last Admin: 03/12/17 09:47 Dose: 200 mls/hr Metronidazole (Flagyl 500mg Premixed Ivpb -) 500 mg in 100 mls @ 100 mls/hr IVPB Q8H-IV [facility] Last Admin: 03/12/17 11:47 Dose: 100 mls/hr Famotidine (Pepcid 20 Mg/12 Ml Push) 20 mg in 12 mls @ 144 mls/hr IVPUSH BID [facility] Last Admin: 03/12/17 09:50 Dose: 144 mls/hr Insulin Aspart (Novolog Vial Sliding Scale -) 1 vial SQ ACHS [facility] PRN Reason: Protocol Last Admin: 03/12/17 11:45 Dose: 6 units Insulin Detemir (Levemir Vial) 25 units SQ AM [facility] Last Admin: 03/12/17 06:44 Dose: 25 units Lisinopril (Prinivil) 10 mg PO DAILY [facility] Last Admin: 03/12/17 09:48 Dose: 10 mg Ondansetron HCl (Zofran Injection) 4 mg IVPUSH Q4H PRN PRN Reason: NAUSEA AND/OR VOMITING - Objective Vital Signs: Vital Signs Temperature 99.3 F 03/12/17 14:00 Pulse Rate 95 H 03/12/17 14:00 Respiratory Rate 20 03/12/17 14:00 Blood Pressure 115/64 03/12/17 14:00 O2 Sat by Pulse Oximetry (%) 96 03/11/17 21:00 Constitutional: Yes: Calm Eyes: Yes: Conjunctiva Clear HENT: Yes: Atraumatic Cardiovascular: Yes: S1, S2 Respiratory: Yes: CTA Bilaterally Gastrointestinal: Yes: Soft, Other (dressing in place) Genitourinary: Yes: WNL Musculoskeletal: Yes: WNL Edema: No Neurological: Yes: Oriented Psychiatric: Yes: Oriented Labs: CBC, BMP 03/12/17 07:20 03/12/17 07:20 INR, PTT INR 1.40 (0.82-1.09) H 03/08/17 16:50 Problem List - Problems (1) Biliary colic Code(s): K80.50 - CALCULUS OF BILE DUCT W/O CHOLANGITIS OR CHOLECYST W/O OBST (2) Chronic kidney disease Code(s): N18.9 - CHRONIC KIDNEY DISEASE, UNSPECIFIED (3) CAD (coronary artery disease) Code(s): I25.10 - ATHSCL HEART DISEASE OF [place] CORONARY ARTERY W/O ANG PCTRS Assessment/Plan Current Medications Generic Name Dose Route Start Last Admin Trade Name Freq PRN Reason Stop Dose Admin Acetaminophen 650 mg 03/11/17 12:46 03/11/17 23:11 Tylenol - PO 650 mg Q6H PRN Administration FEVER OR PAIN Carbidopa/Levodopa 1 combo 03/11/17 14:00 03/12/17 14:21 Sinemet *Cr* 50/200 - PO 1 combo TID JALIL Administration Ezetimibe 10 mg 03/12/17 10:00 03/12/17 09:50 Zetia - PO 10 mg DAILY JALIL Administration Fentanyl 50 mcg 03/11/17 12:54 03/11/17 13:00 Sublimaze Injection - IVPUSH 50 mcg [id number] PRN Administration PAIN Heparin Sodium (Porcine) 5,000 unit 03/11/17 22:00 03/12/17 09:49 Heparin - SQ 5,000 unit BID JALIL Administration Hydroxyzine HCl 25 mg 03/11/17 22:00 03/11/17 22:09 Atarax - PO 25 mg HS JALIL Administration Ampicillin Sodium/Sulbactam 100 mls @ 200 mls/hr 03/11/17 18:00 03/12/17 09: 47 Sodium 1.5 gm/ Sodium Chloride IVPB 200 mls/hr Q8H-IV JALIL Administration Metronidazole 500 mg in 100 mls @ 100 mls/hr 03/11/17 18:00 03/12/17 11:47 Flagyl 500mg Premixed Ivpb - IVPB 100 mls/hr Q8H-IV JALIL Administration Famotidine 20 mg in 12 mls @ 144 mls/hr 03/11/17 22:00 03/12/17 09:50 Pepcid 20 Mg/12 Ml Push IVPUSH 144 mls/hr BID JALIL Administration Insulin Aspart 1 vial 03/11/17 16:30 03/12/17 11:45 Novolog Vial Sliding Scale - SQ 6 units ACHS JALIL Administration Protocol Insulin Detemir 25 units 03/12/17 07:00 03/12/17 06:44 Levemir Vial SQ 25 units AM JALIL Administration Lisinopril 10 mg 03/12/17 10:00 03/12/17 09:48 Prinivil PO 10 mg DAILY JALIL Administration Ondansetron HCl 4 mg 03/11/17 12:46 Zofran Injection IVPUSH Q4H PRN NAUSEA AND/OR VOMITING Laboratory Tests 03/08/17 03/10/17 03/12/17 16:50 07:00 07:20 Creatinine 1.5 H 1.2 1.9 H D Impression 1. CKD 2. HTN 3. chronic cholecystitis s/p lap constanza 4. DM 5. hematuria 6. abdominal pain Plan - repeat labs in am - check ua - will start gentle hydration - cont post op care - wound care - avoid nsaids Dr Beck[place]
[2017-03-12] MEDS ORDERED: SODIUM CHLORIDE 0.45% 1,000 ML IV SCH (16:15)
[2017-03-12] MEDS ORDERED: INSULIN (NOVOLOG) ASPART 100 UNITS/ML 10ML VIAL ONE (16:36)
[2017-03-12] MEDS: ACETAMINOPHEN 325 MG TABLET (FP) PO PRN (23:26)
[2017-03-12] MEDS: hydrOXYzine HCL 25 MG TABLET (FP) PO SCH (23:26)
--- NOTE | 2017-03-13 01:40 | PN ---
Progress Note, Physician Chief Complaint: post op feels better History of Present Illness: sp lap cholecystectomyfeeling better tolerating diet,passed stool - Current Medication List Current Medications: Active Medications Acetaminophen (Tylenol -) 650 mg PO Q6H PRN PRN Reason: FEVER OR PAIN Last Admin: 03/12/17 23:26 Dose: 650 mg Carbidopa/Levodopa (Sinemet *Cr* 50/200 -) 1 combo PO TID [facility] Last Admin: 03/12/17 23:26 Dose: 1 combo Ezetimibe (Zetia -) 10 mg PO DAILY [facility] Last Admin: 03/12/17 09:50 Dose: 10 mg Fentanyl (Sublimaze Injection -) 50 mcg IVPUSH [id number] PRN PRN Reason: PAIN Last Admin: 03/11/17 13:00 Dose: 50 mcg Heparin Sodium (Porcine) (Heparin -) 5,000 unit SQ BID [facility] Last Admin: 03/12/17 09:49 Dose: 5,000 unit Hydroxyzine HCl (Atarax -) 25 mg PO HS [facility] Last Admin: 03/12/17 23:26 Dose: 25 mg Ampicillin Sodium/Sulbactam (Sodium 1.5 gm/ Sodium Chloride) 100 mls @ 200 mls/ hr IVPB Q8H-IV [facility] Last Admin: 03/12/17 19:15 Dose: 200 mls/hr Metronidazole (Flagyl 500mg Premixed Ivpb -) 500 mg in 100 mls @ 100 mls/hr IVPB Q8H-IV [facility] Last Admin: 03/12/17 17:36 Dose: 100 mls/hr Famotidine (Pepcid 20 Mg/12 Ml Push) 20 mg in 12 mls @ 144 mls/hr IVPUSH BID [facility] Last Admin: 03/12/17 09:50 Dose: 144 mls/hr Sodium Chloride (1/2 Normal Saline) 1,000 mls @ 42 mls/hr IV ASDIR [facility] Last Admin: 03/12/17 17:35 Dose: 42 mls/hr Insulin Aspart (Novolog Vial Sliding Scale -) 1 vial SQ ACHS [facility] PRN Reason: Protocol Last Admin: 03/12/17 23:24 Dose: Not Given Insulin Detemir (Levemir Vial) 25 units SQ AM [facility] Last Admin: 03/12/17 06:44 Dose: 25 units Lisinopril (Prinivil) 10 mg PO DAILY [facility] Last Admin: 03/12/17 09:48 Dose: 10 mg Ondansetron HCl (Zofran Injection) 4 mg IVPUSH Q4H PRN PRN Reason: NAUSEA AND/OR VOMITING - Objective Vital Signs: Vital Signs Temperature 99.3 F 03/12/17 14:00 Pulse Rate 95 H 03/12/17 14:00 Respiratory Rate 20 03/12/17 14:00 Blood Pressure 115/64 03/12/17 14:00 O2 Sat by Pulse Oximetry (%) 96 03/11/17 21:00 Constitutional: Yes: Well Nourished Eyes: Yes: WNL HENT: Yes: Atraumatic Neck: Yes: WNL Cardiovascular: Yes: WNL Respiratory: Yes: WNL Gastrointestinal: Yes: Hypoactive Bowel Sounds ...Rectal Exam: Yes: WNL Genitourinary: Yes: WNL Breast(s): Yes: WNL Musculoskeletal: Yes: Muscle Weakness Extremities: Yes: WNL Wound/Incision: Yes: Clean/Dry Neurological: Yes: Alert, Oriented Labs: CBC, BMP 03/12/17 07:20 03/12/17 07:20 INR, PTT INR 1.40 (0.82-1.09) H 03/08/17 16:50 Problem List - Problems (1) Biliary colic Code(s): K80.50 - CALCULUS OF BILE DUCT W/O CHOLANGITIS OR CHOLECYST W/O OBST (2) Chronic cholecystitis Code(s): K81.1 - CHRONIC CHOLECYSTITIS (3) Chronic kidney disease Code(s): N18.9 - CHRONIC KIDNEY DISEASE, UNSPECIFIED (4) JOSSELYN (acute kidney injury) Code(s): N17.9 - ACUTE KIDNEY FAILURE, UNSPECIFIED (5) Diabetes Code(s): E11.9 - TYPE 2 DIABETES MELLITUS WITHOUT COMPLICATIONS Qualifiers: Diabetes mellitus type: type 2 (6) Diabetes mellitus, insulin dependent (IDDM), uncontrolled Code(s): E10.65 - TYPE 1 DIABETES MELLITUS WITH HYPERGLYCEMIA Qualifiers: Chronic kidney disease stage: unspecified stage Assessment/Plan Current Active Problems Biliary colic (Acute) Chronic cholecystitis (Acute) Chronic kidney disease (Acute) Chronic liver disease and cirrhosis (Acute) Abnormal Lab Results 03/12/17 03/12/17 07:20 07:20 RBC 3.77 L BUN 29 H D Creatinine 1.9 H D Random Glucose 298 H D Calcium 8.2 L Total Bilirubin 1.4 H AST 67 H Alkaline Phosphatase 261 H Albumin 2.5 L Laboratory Results - last 24 hr 03/11/17 03/11/17 03/12/17 17:01 22:08 06:43 WBC RBC Hgb Hct MCV MCH MCHC RDW Plt Count MPV Neutrophils % Lymphocytes % Monocytes % Eosinophils % Basophils % Sodium Potassium Chloride Carbon Dioxide Anion Gap BUN Creatinine Creat Clearance w eGFR POC Glucometer 229 321 268 Random Glucose Calcium Total Bilirubin AST ALT Alkaline Phosphatase Total Protein Albumin 03/12/17 03/12/17 03/12/17 07:20 07:20 11:25 WBC 6.5 D RBC 3.77 L Hgb 12.0 Hct 35.9 MCV 95.3 MCH 31.9 MCHC 33.5 RDW 14.1 Plt Count 183 MPV 9.6 Neutrophils % 61.7 Lymphocytes % 27.9 Monocytes % 9.2 Eosinophils % 0.6 D Basophils % 0.6 Sodium 138 Potassium 4.5 Chloride 106 Carbon Dioxide 24 Anion Gap 8 BUN 29 H D Creatinine 1.9 H D Creat Clearance w eGFR 34.02 POC Glucometer 325 Random Glucose 298 H D Calcium 8.2 L Total Bilirubin 1.4 H AST 67 H ALT 23 Alkaline Phosphatase 261 H Total Protein 7.4 Albumin 2.5 L 03/12/17 03/12/17 03/12/17 16:51 19:14 21:37 WBC RBC Hgb Hct MCV MCH MCHC RDW Plt Count MPV Neutrophils % Lymphocytes % Monocytes % Eosinophils % Basophils % Sodium Potassium Chloride Carbon Dioxide Anion Gap BUN Creatinine Creat Clearance w eGFR POC Glucometer 202 177 169 Random Glucose Calcium Total Bilirubin AST ALT Alkaline Phosphatase Total Protein Albumin 03/12/17 23:23 WBC RBC Hgb Hct MCV MCH MCHC RDW Plt Count MPV Neutrophils % Lymphocytes % Monocytes % Eosinophils % Basophils % Sodium Potassium Chloride Carbon Dioxide Anion Gap BUN Creatinine Creat Clearance w eGFR POC Glucometer 128 Random Glucose Calcium Total Bilirubin AST ALT Alkaline Phosphatase Total Protein Albumin plan: Laboratory Tests 03/12/17 03/12/17 03/12/17 06:43 07:20 11:25 Sodium 138 Potassium 4.5 Chloride 106 Carbon Dioxide 24 Anion Gap 8 BUN 29 H D Creatinine 1.9 H D POC Glucometer 268 325 Random Glucose 298 H D Calcium 8.2 L 03/12/17 03/12/17 16:51 21:37 Sodium Potassium Chloride Carbon Dioxide Anion Gap BUN Creatinine POC Glucometer 202 169 Random Glucose Calcium start novolog 70/30 20 units bid \continue novolog ss coverage
[2017-03-13] MEDS: AMPICILLIN NA/SULBACTAM NA 1.5 GM in SODIUM CHLORIDE 100 ML IVPB SCH ×2 (02:05→09:21)
[2017-03-13] MEDS ORDERED: PT OWN MED DRAWER 7, Y5N ONE ×2 (02:38→09:11)
[2017-03-13] MEDS: METRONIDAZOLE 500 MG PREMIXED 500 MG/100 ML MG IVPB SCH ×2 (02:58→09:20)
[2017-03-13] MEDS: INSULIN SLIDING SCALE (NOVOLOG) 1 VIAL SQ SCH ×2 (06:09→11:19)
[2017-03-13] MEDS ORDERED: INSULIN (NOVOLOG MIX 70/30) 100 UNITS/ML MDV SQ SCH (07:00)
--- NOTE | 2017-03-13 08:12 | PN ---
Progress Note, Physician Chief Complaint: abdominal pain History of Present Illness: 81year-old male PMH Parkinson's, prostate ca, IDDDM, hypertension, hyperlipidemia, CAD with stents, GERD on zantac, presents with severe right upper quadrant pain. POD#2 s/p Laparoscopic cholecystectomy. Reports that he bumped his belly on the table and hs had bloody soaked of the umbilical dressing since. Otherwise he is tolerating clears, voiding spontaneously, ambulating, no other complaints. expresses desire to go home. - Current Medication List Current Medications: Active Medications Acetaminophen (Tylenol -) 650 mg PO Q6H PRN PRN Reason: FEVER OR PAIN Last Admin: 03/12/17 23:26 Dose: 650 mg Carbidopa/Levodopa (Sinemet *Cr* 50/200 -) 1 combo PO TID [facility] Last Admin: 03/13/17 06:06 Dose: 1 combo Ezetimibe (Zetia -) 10 mg PO DAILY [facility] Last Admin: 03/12/17 09:50 Dose: 10 mg Fentanyl (Sublimaze Injection -) 50 mcg IVPUSH [id number] PRN PRN Reason: PAIN Last Admin: 03/11/17 13:00 Dose: 50 mcg Heparin Sodium (Porcine) (Heparin -) 5,000 unit SQ BID [facility] Last Admin: 03/12/17 23:40 Dose: 5,000 unit Hydroxyzine HCl (Atarax -) 25 mg PO HS [facility] Last Admin: 03/12/17 23:26 Dose: 25 mg Ampicillin Sodium/Sulbactam (Sodium 1.5 gm/ Sodium Chloride) 100 mls @ 200 mls/ hr IVPB Q8H-IV [facility] Last Admin: 03/13/17 02:05 Dose: 200 mls/hr Metronidazole (Flagyl 500mg Premixed Ivpb -) 500 mg in 100 mls @ 100 mls/hr IVPB Q8H-IV [facility] Last Admin: 03/13/17 02:58 Dose: 100 mls/hr Famotidine (Pepcid 20 Mg/12 Ml Push) 20 mg in 12 mls @ 144 mls/hr IVPUSH BID [facility] Last Admin: 03/12/17 23:50 Dose: Not Given Sodium Chloride (1/2 Normal Saline) 1,000 mls @ 42 mls/hr IV ASDIR [facility] Last Admin: 03/12/17 17:35 Dose: 42 mls/hr Insulin Aspart (Novolog Mix 70/30 Vial) 20 units SQ BIDAC [facility] Last Admin: 03/13/17 06:59 Dose: 20 units Insulin Aspart (Novolog Vial Sliding Scale -) 1 vial SQ ACHS [facility] PRN Reason: Protocol Last Admin: 03/13/17 06:09 Dose: Not Given Lisinopril (Prinivil) 10 mg PO DAILY [facility] Last Admin: 03/12/17 09:48 Dose: 10 mg Ondansetron HCl (Zofran Injection) 4 mg IVPUSH Q4H PRN PRN Reason: NAUSEA AND/OR VOMITING - Objective Vital Signs: Vital Signs Temperature 99.4 F 03/13/17 02:07 Pulse Rate 99 H 03/13/17 02:07 Respiratory Rate 20 03/13/17 02:07 Blood Pressure 145/77 03/13/17 02:07 O2 Sat by Pulse Oximetry (%) 96 03/11/17 21:00 Vital Signs Period Temp Pulse Resp BP Sys/Malcolm Pulse Ox Last 24 Hr 98 F-99.4 F 92-99 18-20 115-145/60-77 Constitutional: Yes: Well Nourished, No Distress, Calm Eyes: Yes: Conjunctiva Clear, EOM Intact HENT: Yes: Atraumatic, Normocephalic Neck: Yes: Supple, Trachea Midline Cardiovascular: Yes: Regular Rate and Rhythm, S1, S2 Respiratory: Yes: Regular, CTA Bilaterally Gastrointestinal: Yes: Normal Bowel Sounds, Soft, Other (umbilical dressing replaced). No: Tenderness, Tenderness, Epigastrium, Tenderness, Rebound Wound/Incision: Yes: Clean/Dry, Well Approximated, Open to air (3 additional ports are open to air.), Dressing Removed (Umbilical pressure dressing is placed ). No: Draining (serosanguinous sokaging of umbilical dressing) Neurological: Yes: Alert, Oriented Psychiatric: Yes: Alert, Oriented Labs: CBC, BMP 03/12/17 07:20 INR, PTT INR 1.40 (0.82-1.09) H 03/08/17 16:50 Abnormal Lab Results 03/13/17 07:20 Chloride 111 H Anion Gap 5 L BUN 27 H Creatinine 1.6 H Random Glucose 132 H D Calcium 8.1 L Total Bilirubin 1.4 H GGT 894 H AST 71 H Alkaline Phosphatase 256 H Albumin 2.5 L Problem List - Problems (1) Chronic cholecystitis Assessment/Plan: 81 yo male MMP including CAD with stents presents with chronic right upper quadrant pain that can be attributed to acute on chronic cholecystitis POD#2 s/ p Laparoscopic cholecystectomy. umbilical dressing soiling, probably because of plavix. Intra-operatively the liver was noted to be very fibrosed with a cobble stone appearance, GGT elevated and some transaminitis. OOB and ambulate with assistance encourage incentive spirometry daily wound care per VNS and family Umbilical DressinX4 gauze and tape when soiled or once daily discharge is at the discretion of the primary team follow up in clinic after two weeks Code(s): K81.1 - CHRONIC CHOLECYSTITIS (2) Biliary colic Code(s): K80.50 - CALCULUS OF BILE DUCT W/O CHOLANGITIS OR CHOLECYST W/O OBST (3) JOSSELYN (acute kidney injury) Code(s): N17.9 - ACUTE KIDNEY FAILURE, UNSPECIFIED (4) CAD (coronary artery disease) Code(s): I25.10 - ATHSCL HEART DISEASE OF [place] CORONARY ARTERY W/O ANG PCTRS (5) Diabetes mellitus, insulin dependent (IDDM), uncontrolled Code(s): E10.65 - TYPE 1 DIABETES MELLITUS WITH HYPERGLYCEMIA Qualifiers: Chronic kidney disease stage: unspecified stage (6) Hypertension Code(s): I10 - ESSENTIAL (PRIMARY) HYPERTENSION
[2017-03-13 08:48] LABS: ALBUMIN 2.5 g/dl (3.4-5.0); ANION GAP 5 (8-16); BILIRUBIN,TOTAL 1.4 mg/dL (0.2-1.0); CALCIUM 8.1 mg/dL (8.5-10.1); CO2 25 mmol/L (21-32); CREATININE 1.6 mg/dL (0.7-1.3); GLUCOSE,RANDOM 132 mg/dL (74-106); SGOT/AST 71 U/L (15-37); SGPT/ALT 32 U/L (12-78); TOT PROT 7.2 g/dl (6.4-8.2)
[2017-03-13 08:51] LABS: ALK PHOS 256 U/L (45-117)
[2017-03-13] MEDS: EZETIMIBE 10 MG TABLET (FP) PO SCH (09:20)
[2017-03-13] MEDS: LISINOPRIL 10 MG TABLET (FP) PO SCH (09:20)
[2017-03-13] MEDS: HEPARIN NA (PORCINE) 5,000 UNITS/ML 1ML VIAL SQ SCH (09:21)
--- NOTE | 2017-03-13 11:00 | DS ---
Physical Examination Vital Signs: Vital Signs Temperature 99.4 F 03/13/17 02:07 Pulse Rate 99 H 03/13/17 02:07 Respiratory Rate 20 03/13/17 02:07 Blood Pressure 145/77 03/13/17 02:07 O2 Sat by Pulse Oximetry (%) 96 03/11/17 21:00 AWAKE ALERT + URINE OUTPUT +BM AND FLATULENCE Constitutional: Yes: Mild Distress Eyes: Yes: WNL HENT: Yes: WNL Neck: Yes: WNL Cardiovascular: Yes: WNL Respiratory: Yes: WNL Gastrointestinal: Yes: Tenderness Renal/: Yes: WNL Musculoskeletal: Yes: Muscle Weakness Extremities: Yes: WNL Edema: Yes Peripheral Pulses WNL: Yes Integumentary: Yes: WNL Wound/Incision: Yes: Dressing Dry and Intact Neurological: Yes: Pre-Existing Deficit ...Motor Strength: LLE, RLE Psychiatric: Yes: Other Labs: CBC, BMP 03/12/17 07:20 03/13/17 07:20 Discharge Summary Reason For Visit: CHRONIC CHOLECYSTITIS Current Active Problems Biliary colic (Acute) Chronic cholecystitis (Acute) Chronic kidney disease (Acute) Chronic liver disease and cirrhosis (Acute) Procedures: Principal: [facility] Hospital Course: ADMITTED FOR ACUTE CHOLITHIAISISCYSTITIS, TREATED WITH LAPCHOL, POST OP DAY #2 DC HOME WITH VNS Condition: Stable - Instructions Diet, Activity, Other Instructions: Postoperative instructions: You had a laparoscopic cholecystectomy on DATE by Dr. Bebo Senior of [facility]. Activity: Resume your usual activities gradually, but no heavy exertion or lifting more than 10-15 pounds for 1 month. Remove dressings 48 hours after surgery; sticky tapes underneath will fall off by themselves. You may shower daily starting then, just pat the incision areas dry. Eat lightly at first, but advance to your usual diet as tolerated. Pain: For pain, you may use ibuprofen every 6 hours as needed. Take medications as prescribed or indicated on the labeling. Follow-up: Call Dr. Senior' office at [phone] to make your postop appointment (Saturday ~2 weeks after surgery). Clinic is held in the Diagnostic [facility] on the first floor of [facility]. Call the office if you have: * increasing pain not responsive to pain medication * fever of 101F or higher * vomiting * unusual or increasing bleeding or drainage from wounds * increasing redness or swelling at wound sites * inability to urinate Also, see your primary medical doctor within 1-[address] TRINIDAD 1 WEEK Referrals: Thania Trinidad MD [Primary Care Provider] - Disposition: VNS/HOME HEALTH CARE - Home Medications Comprehensive Discharge Medication List: Ambulatory Orders Gabapentin 300 mg PO TID 07/05/14 Aspirin [ASA -] 81 mg PO DAILY 03/06/16 Carbidopa/Levodopa [Rytary ER 61.25 mg-245 mg Cap] 1 each PO TID 03/06/16 Clopidogrel Bisulfate [Plavix -] 75 mg PO DAILY 03/06/16 Ergocalciferol (Vitamin D2) [Vitamin D2] 2,000 unit PO DAILY 03/06/16 Lisinopril 10 mg PO DAILY 03/06/16 Docusate Sodium [Colace -] 100 mg PO TID tab 01/20/17 Metoprolol Succinate [Toprol XL -] 25 mg PO DAILY #30 tab 01/20/17 Bascom-3 Acid Ethyl Esters [Lovaza -] 2 gm PO BID cap 01/20/17 Sitagliptin Phosphate [Januvia -] 50 mg PO DAILY@0700 #30 tablet 01/20/17 Tamsulosin HCl [Flomax -] 0.4 mg PO DAILY@0830 #30 tab 01/20/17 Ezetimibe [Zetia] 10 mg PO DAILY 03/08/17 Insulin Aspart [Novolog] 0 unit SQ TID PRN 03/08/17 Insulin Glargine,Hum.rec.anlog [Lantus (nf)] 35 units SQ HS 03/08/17 Mirabegron [Myrbetriq] 50 mg PO DAILY 03/08/17 Ranitidine [Zantac -] 150 mg PO BID 03/08/17
[2017-03-13] MEDS ORDERED: INSULIN (NOVOLOG) ASPART 100 UNITS/ML 10ML VIAL ONE (11:15)
[2017-03-13 11:58] VITALS: BP 141/73; PULSE 100
--- NOTE | 2017-03-13 13:57 | PN ---
Progress Note, Physician History of Present Illness: Pt seen and examined at bedside. He is awake and alert. He is tolerating diet. - Current Medication List Current Medications: Active Medications Acetaminophen (Tylenol -) 650 mg PO Q6H PRN PRN Reason: FEVER OR PAIN Last Admin: 03/12/17 23:26 Dose: 650 mg Carbidopa/Levodopa (Sinemet *Cr* 50/200 -) 1 combo PO TID [facility] Last Admin: 03/13/17 06:06 Dose: 1 combo Ezetimibe (Zetia -) 10 mg PO DAILY [facility] Last Admin: 03/13/17 09:20 Dose: 10 mg Hydroxyzine HCl (Atarax -) 25 mg PO HS [facility] Last Admin: 03/12/17 23:26 Dose: 25 mg Sodium Chloride (1/2 Normal Saline) 1,000 mls @ 42 mls/hr IV ASDIR [facility] Last Admin: 03/12/17 17:35 Dose: 42 mls/hr Insulin Aspart (Novolog Mix 70/30 Vial) 20 units SQ BIDAC [facility] Last Admin: 03/13/17 06:59 Dose: 20 units Insulin Aspart (Novolog Vial Sliding Scale -) 1 vial SQ ACHS [facility] PRN Reason: Protocol Last Admin: 03/13/17 11:19 Dose: 5 units Lisinopril (Prinivil) 10 mg PO DAILY [facility] Last Admin: 03/13/17 09:20 Dose: 10 mg Ondansetron HCl (Zofran Injection) 4 mg IVPUSH Q4H PRN PRN Reason: NAUSEA AND/OR VOMITING - Objective Vital Signs: Vital Signs Temperature 98 F 03/13/17 10:00 Pulse Rate 100 H 03/13/17 10:00 Respiratory Rate 18 03/13/17 10:00 Blood Pressure 141/73 03/13/17 10:00 O2 Sat by Pulse Oximetry (%) 96 03/11/17 21:00 Constitutional: Yes: Calm Eyes: Yes: Conjunctiva Clear HENT: Yes: Atraumatic Neck: Yes: Supple Cardiovascular: Yes: S1, S2 Respiratory: Yes: CTA Bilaterally Gastrointestinal: Yes: Soft, Other (dressing in place) Genitourinary: Yes: WNL Musculoskeletal: Yes: WNL Edema: LLE: Trace, RLE: Trace Neurological: Yes: Oriented Psychiatric: Yes: Oriented Labs: CBC, BMP 03/12/17 07:20 03/13/17 07:20 INR, PTT INR 1.40 (0.82-1.09) H 03/08/17 16:50 Problem List - Problems (1) Biliary colic Code(s): K80.50 - CALCULUS OF BILE DUCT W/O CHOLANGITIS OR CHOLECYST W/O OBST (2) Chronic kidney disease Code(s): N18.9 - CHRONIC KIDNEY DISEASE, UNSPECIFIED (3) CAD (coronary artery disease) Code(s): I25.10 - ATHSCL HEART DISEASE OF [place] CORONARY ARTERY W/O ANG PCTRS Assessment/Plan Current Medications Generic Name Dose Route Start Last Admin Trade Name Freq PRN Reason Stop Dose Admin Acetaminophen 650 mg 03/11/17 12:46 03/12/17 23:26 Tylenol - PO 650 mg Q6H PRN Administration FEVER OR PAIN Carbidopa/Levodopa 1 combo 03/11/17 14:00 03/13/17 06:06 Sinemet *Cr* 50/200 - PO 1 combo TID [facility] Administration Ezetimibe 10 mg 03/12/17 10:00 03/13/17 09:20 Zetia - PO 10 mg DAILY [facility] Administration Hydroxyzine HCl 25 mg 03/11/17 22:00 03/12/17 23:26 Atarax - PO 25 mg HS [facility] Administration Sodium Chloride 1,000 mls @ 42 mls/hr 03/12/17 16:15 03/12/17 17:35 1/2 Normal Saline IV 42 mls/hr ASDIR [facility] Administration Insulin Aspart 20 units 03/13/17 07:00 03/13/17 06:59 Novolog Mix 70/30 Vial SQ 20 units BIDAC [facility] Administration Insulin Aspart 1 vial 03/13/17 07:00 03/13/17 11:19 Novolog Vial Sliding Scale - SQ 5 units ACHS [facility] Administration Protocol Lisinopril 10 mg 03/12/17 10:00 03/13/17 09:20 Prinivil PO 10 mg DAILY [facility] Administration Ondansetron HCl 4 mg 03/11/17 12:46 Zofran Injection IVPUSH Q4H PRN NAUSEA AND/OR VOMITING Impression 1. CKD 2. HTN 3. chronic cholecystitis s/p lap constanza 4. DM 5. hematuria 6. abdominal pain Plan - renal function is improved - can see pt in office - can stop fluids - cont post op care - wound care - avoid nsaids Dr Beckford
[2017-03-13 14:31] VITALS: TEMP 98.1
[2017-03-14 06:08] LABS: SERUM IRON 50 ug/dL (38-169); TOTAL IRON BINDING CAPACITY 245 ug/dL (250-450); UIBC 195 ug/dL (111-343)
--- NOTE | 2017-03-14 08:55 | PATH ---
Surgical Pathology Report Patient Name: NIECY RONDON I. [facility]. Rec. #: [id number] /Age/Gender: 1935 (Age: 81) / M Account: [id number] Location: [address] [place] [address]/[facility] Taken: 03/11/2017 Received: 03/11/2017 Reported: 03/14/2017 Physicians: Thania Trinidad M.D. Specimen(s) Received GALLBLADDER Clinical History Acute and chronic cholecystitis Final Diagnosis GALLBLADDER, LAPAROSCOPIC CHOLECYSTECTOMY: MILD CHRONIC CHOLECYSTITIS AND SMALL BENIGN SIMPLE CYST WITHIN GALLBLADDER WALL (0.9 cm). Electronically Signed Karla Caban M.D. Gross Description Received in formalin, labeled "gallbladder," is an 8 8.0 x 2.6 x 2.5 cm. gallbladder with a 0.2 cm. in length portion of cystic duct attached. The outer surface is post-pink with a focal defect and varies from smooth to shaggy. The lumen contains green bile. There are no choleliths identified. The mucosa is post and focally eroded. The wall of the gallbladder displays a focal cyst measuring 0.9 cm and ranges from 0.1-0.6 cm. in thickness. Manager Medicare sections are submitted in one cassette. 03/11/2017 [facility]03/11/2017
--- NOTE | 2017-03-14 11:46 | OP ---
DATE OF OPERATION: 03/11/2017 ATTENDING SURGEON: Bebo Senior MD MARINE EQUIPMENT ENGINEER: BRANDI Sherman ANESTHESIOLOGIST: Claudia Kellogg MD PREOPERATIVE DIAGNOSIS: Acute on chronic cholecystitis. POSTOPERATIVE DIAGNOSIS: Acute on chronic cholecystitis. PROCEDURE: Laparoscopic cholecystectomy. ESTIMATED BLOOD LOSS: 10 mL. INTRAVENOUS FLUID: 1200 mL. SPECIMEN: Gallbladder, sludge. TYPE OF ANESTHESIA: General with local. Local consisted of 0.5% Marcaine, a total of 10 mL given at the port sites. BRIEF INDICATIONS: Patient is an 81-year-old male presenting with abdominal pain worsening over a period of a month, worst over the last week. showed distended gallbladder with sludge, small stones, and pericholecystic fluid as well as chronic thickening of the wall. After MRCP revealed that there was no choledocholithiasis, he was counseled regarding laparoscopic cholecystectomy for treatment of what appeared to be acute on chronic cholecystitis. He was explained the risks, benefits, and alternatives as detailed. He signed informed consent. He was in the presence of his children. He had his questions answered to his satisfaction. DESCRIPTION OF PROCEDURE: The patient was brought to the operating room, placed in supine position on the operating table with the left arm extended 90 degrees perpendicular to the bodys axis and the right arm tucked. He was induced with general anesthesia, endotracheally intubated. He received intravenous antibiotics prior to proceeding to the operating room. He had bilateral lower extremities, had SCD devices as well as ELIN stockings. A formal time-out was completed. The patient was prepped and draped in standard surgical fashion. All parties agreed. We proceeded first with supraumbilical Aidee entry standing at the umbilicus, marking the skin, first with a marker as well as the subcostal area and the xiphisternum entry port, as well. It was incised with a 15-blade scalpel at the umbilicus, deepening and widening through subcutaneous tissues with Bovie cautery to the anterior abdominal fascia in the midline of the rectus, which was identified, and then entered slightly partial thickness to the anterior sheath, elevating the fascia with Coco clamps. Final entry was made into the abdomen to establish atraumatic entry without injuring any intraabdominal viscera. The finger was used to probe the incision and clear any adhesions to the anterior abdominal wall. There appeared to be none. A 12-mm Aidee port was then installed into the abdomen, balloon inflated, and a pneumoperitoneum established. After a figure-of-8 was laid across the Aidee entry port, it was a 0 in a figure-of-8 fashion and not tied. After establishing pneumoperitoneum with 15 mmHg, camera was introduced to the abdomen and the site was inspected. There appeared to be no damage to the anterior abdominal viscera and no significant bleeding. A distended gallbladder with adherent omentum to the dome and a cobblestone-appearing liver with fibrosis, which was small, in the right upper quadrant. No other findings and no implants were noted. At this point, we took our time to establish a 2nd 5-mm entry port at the xiphisternum. This was done under direct visualization using a 15 blade at the skin and a blunt atraumatic noncutting trocar into the vicinity of the gallbladder. The gallbladder was then stripped of adhesions of omentum to the dome of the gallbladder, and the gallbladder was slightly elevated to plan for additional entry ports for traction from the right abdomen. These ports were in standard fashion introduced into the abdomen transilluminating the anterior abdominal wall to avoid injury to venous structures. After clearing the dome of the gallbladder of the omental adhesions, the gallbladder was retracted cranially, and the omental attachments were taken down bluntly towards the infundibulum of the gallbladder. When it was cleared, the infundibulum itself was grasped as well. No attempt or need was recognized to decompress the gallbladder prior to dissection. With the gallbladder well retracted towards the right side of the abdomen, we proceeded then with dissection down towards the infundibular junction with the cystic duct. It was identified, but chronic adhesions and a thin-walled gallbladder somewhat limited the dissection, and we proceeded then by stripping some of the peritoneal attachments with Bovie cautery to ease dissection. The cystic duct was identified, and a window was created posterior to it, passing an instrument to assure free passage and the ability to place 5-mm clips. The cystic artery was then dissected, and a dense adhesive patch just adjacent to the which was identified in the field. With the identified, both structures were clipped with 5-mm clips, 2 proximally and one towards the specimen side, and then, they were transected with EndoShears in sequential fashion first with the cystic duct and the cystic artery. After transecting the structures, the gallbladder could freely be mobilized. However, dense adhesions and a somewhat ill-defined plane of dissection led to a small entry into the gallbladder and a small amount of drainage of bile. This area was controlled with readjusting clamps. The gallbladder was then stripped from the hepatic plate with Bovie cautery under direct visualization at all times. When it was elevated off of the liver bed, it was placed just above the liver itself. The camera was resided to the xiphisternum, and the gallbladder was then retrieved with the EndoCatch bag from the umbilical port under direct visualization, as well. The gallbladder was installed into the EndoCatch bag and retrieved. With the pneumoperitoneum reestablished, the liver bed was then inspected. There appeared to be no gross blood loss and the small amount of clots and bile spillage were suctioned from the abdomen, and then, the site was irrigated copiously with approximately 1.5 L of sterile irrigation fluid until clear. With the gallbladder removed, the site was then once again inspected, and there appeared to be adequate hemostasis and no additional pathology other than the fibrotic liver and no damage to viscera. We then removed the remaining trocars and 5-mm trocars under direct visualization showing no bleeding from the umbilicus. The Aidee was removed, and the umbilical port was synched shut with the finger interposed to assure no intraabdominal viscera became interposed in the closure. The figure-of-8 suture was then tied and cut. Each port site was irrigated and then closed with 4-0 Vicryl in a running subcuticular fashion. The skin was cleaned and sterile dressings were placed including Benzoin and Steri-Strips as well as gauze pads and Tegaderms. With the procedure completed, counts were correct prior to closure, the patient was awoken from general anesthesia and extubated in the operating room. He was returned to the recovery room in stable condition. MD YOLI Akhtar/[id number]
== END 2017-03-13 14:10 | disposition home health service (06) | DRG 418 ==
LOC: JER 16:13 → JERBED 03-09 00:04 → UNDOADMIN 03-09 00:09 → JERBED 03-09 00:09 → J6S 03-09 01:29 → JERBED 03-09 01:29
PROVIDERS: ADMIT Family Medicine; ATTEND Family Medicine
PROC: 0FT44ZZ Resection of Gallbladder, Percutaneous Endoscopic Approach (ICD-10-PCS; principal; 2017-03-10)
DX: K81.2 Acute cholecystitis with chronic cholecystitis (principal); N17.9 Acute kidney failure, unspecified; N13.8 Other obstructive and reflux uropathy; I25.10 Atherosclerotic heart disease of native coronary artery without angina pectoris; E78.5 Hyperlipidemia, unspecified; N40.0 Benign prostatic hyperplasia without lower urinary tract symptoms; G20 Parkinson's disease; K59.09 Other constipation; R74.8 Abnormal levels of other serum enzymes; E11.65 Type 2 diabetes mellitus with hyperglycemia; K74.0 Hepatic fibrosis; J45.909 Unspecified asthma, uncomplicated; K21.9 Gastro-esophageal reflux disease without esophagitis; K74.60 Unspecified cirrhosis of liver; R31.9 Hematuria, unspecified; I12.9 Hypertensive chronic kidney disease with stage 1 through stage 4 chronic kidney disease, or unspecified chronic kidney disease; E11.22 Type 2 diabetes mellitus with diabetic chronic kidney disease; N18.9 Chronic kidney disease, unspecified; E11.21 Type 2 diabetes mellitus with diabetic nephropathy; K80.50 Calculus of bile duct without cholangitis or cholecystitis without obstruction; Z95.5 Presence of coronary angioplasty implant and graft; Z87.891 Personal history of nicotine dependence; Z85.46 Personal history of malignant neoplasm of prostate; Z68.31 Body mass index [BMI] 31.0-31.9, adult; Z79.84 Long term (current) use of oral hypoglycemic drugs
CPT/HCPCS: 36415; 71020-TC; 71101-TC-RT; 74181-TC; 76705-TC; 80053; 80076; 82550; 82553; 82977; 83516; 83540; 83550; 83690; 84484; 85025; 85610; 85651; 85730; 86038; 86140; 86704; 86707; 86708; 86803; 86850; 86900; 86901; 87340; 87350; 88304-TC; 93005; 93010; 97116-GP; 97161-GP; 99285-25; J1644

== ENCOUNTER 2017-03-17 09:16 | Emergency (ER) | payer MEDICARE, OTHER ==
[2017-03-17 09:22] VITALS: BP 144/77; PULSE 91; TEMP 98.4; BMI 68.3
--- NOTE | 2017-03-17 10:02 | PDOC ---
History of Present Illness - General Chief Complaint: Revisit,Wound Recheck Stated Complaint: WOUND CHECK Time Seen by Provider: 03/17/17 09:44 History Source: Patient - History of Present Illness Initial Comments: 03/17/17 09:51 81-year-old male sent in by Dr. Rebolledo surgeon for suture repair to his abdomen after receiving a laparoscopic cholecystectomy last week. Patient has no complaints except for leakage at the site which he describes as a pinkish fluid. As per Dr. Rebolledo likely due to ascites but requesting to check a CBC. Patient denies fever, weakness or increasing pain at the site Timing/Duration: unsure Severity: mild Associated Symptoms: reports: denies symptoms Past History - Travel Traveled outside of the country in the last 30 days: No - Past Medical History Allergies/Adverse Reactions: Allergies Allergy/AdvReac Type Severity Reaction Status Date / Time No Known Drug Allergies Allergy Verified 03/17/17 09:22 Home Medications: Ambulatory Orders Gabapentin 300 mg PO TID 07/05/14 Aspirin [ASA -] 81 mg PO DAILY 03/06/16 Carbidopa/Levodopa [Rytary ER 61.25 mg-245 mg Cap] 1 each PO TID 03/06/16 Clopidogrel Bisulfate [Plavix -] 75 mg PO DAILY 03/06/16 Ergocalciferol (Vitamin D2) [Vitamin D2] 2,000 unit PO DAILY 03/06/16 Lisinopril 10 mg PO DAILY 03/06/16 Docusate Sodium [Colace -] 100 mg PO TID tab 01/20/17 Metoprolol Succinate [Toprol XL -] 25 mg PO DAILY #30 tab 01/20/17 [place]-3 Acid Ethyl Esters [Lovaza -] 2 gm PO BID cap 01/20/17 Sitagliptin Phosphate [Januvia -] 50 mg PO DAILY@0700 #30 tablet 01/20/17 Tamsulosin HCl [Flomax -] 0.4 mg PO DAILY@0830 #30 tab 01/20/17 Ezetimibe [Zetia] 10 mg PO DAILY 03/08/17 Insulin Aspart [Novolog Flexpen] 0 unit SQ TID PRN 03/08/17 Insulin Glargine,Hum.rec.anlog [Lantus (10mL VIAL) -] 35 units SQ HS 03/08/17 Mirabegron [Myrbetriq] 50 mg PO DAILY 03/08/17 Ranitidine [Zantac -] 150 mg PO BID 03/08/17 Acetaminophen [Tylenol .Regular Strength -] 650 mg PO Q6H PRN tablet 03/13/17 Anemia: No Asthma: No Cancer: No Cardiac Disorders: No CVA: No COPD: No CHF: No Dementia: No Diabetes: Yes (IDDM) GI Disorders: Yes (DYSPHAGIA FOR 3 YEARS,CONSTIPATION,GERD) Disorders: No HTN: Yes Hypercholesterolemia: Yes Kidney Stones: Yes Liver Disease: No Seizures: No Thyroid Disease: No - Surgical History Abdominal Surgery: No Appendectomy: No Cardiac Surgery: Yes (STENTS) Cholecystectomy: Yes Lung Surgery: No Neurologic Surgery: No Orthopedic Surgery: No - Immunization History Immunization Up to Date: No - Suicide/Smoking/Psychosocial Hx Smoking History: Former smoker Have you smoked in the past 12 months: No Information on smoking cessation initiated: No Hx Alcohol Use: No Drug/Substance Use Hx: No Substance Use Type: None Hx Substance Use Treatment: No Patient Lives Alone: No Lives with/in: spouse/SO Review of Systems - Review of Systems Able to Perform ROS?: Yes Constitutional: No: Symptoms Reported HEENTM: No: Symptoms Reported Respiratory: No: Symptoms reported Cardiac (ROS): No: Symptoms Reported ABD/GI: Yes: See HPI : No: Symptoms Reported Musculoskeletal: No: Symptoms Reported Integumentary: Yes: See HPI Neurological: No: Symptoms reported *Physical Exam - Vital Signs Last Vital Signs Temp Pulse Resp BP Pulse Ox 98.4 F 91 H 18 144/77 99 03/17/17 09:17 03/17/17 09:17 03/17/17 09:17 03/17/17 09:17 03/17/17 09:17 - Physical Exam General Appearance: Yes: Nourished, Appropriately Dressed. No: Apparent Distress HEENT: negative: Pale Conjunctivae Gastrointestinal/Abdominal: positive: Normal Bowel Sounds, Soft, Other (noted 2 healed incision to ruq and rt periumbilical. Noted 2 cm vertical incision above umbilicus with pin head sized opening to the top portion. Minimal pinkish drainage noted with expression. surrouding skin intact). negative: Tenderness Integumentary: positive: Dry, Warm Neurologic: positive: Motor Strength 5/5 (ambulatory) ED Treatment Course - LABORATORY CBC & Chemistry Diagram: 03/17/17 09:53 Medical Decision Making - Medical Decision Making 03/17/17 10:04 Pt here for evaluation and suture placement to be performed by Dr. Rebolledo. Pt had cbc sent and 2 sutures were placed by surgeon without difficulty. 03/17/17 10:22 Laboratory Tests 03/17/17 09:53 Hgb 12.6 Hct 37.4 Discharge home to follow up with surgeon *DC/Admit/Observation/Transfer Diagnosis at time of Disposition: Problem involving surgical incision - Discharge Dispostion Disposition: HOME Condition at time of disposition: Improved - Referrals Referrals: Thania Trinidad MD [Primary Care Provider] - Bebo Senior MD [Staff Physician] - - Patient Instructions Printed Discharge Instructions: How to Care for a Surgical Wound Additional Instructions: Please follow instructions given to you by Dr. Senior. - Post Discharge Activity
[2017-03-17 10:09] LABS: BASOPHIL 0.8 % (0-2.0); EOSINOPHIL 7.6 % (0-4.5); MCHC 33.6 g/dl (32.0-35.9); MEAN CELL VOLUME 95.4 fl (80-96); MEAN PLT VOLUME 9.2 fl (7.5-11.1); NEUTROPHILS 51.9 % (42.8-82.8); PLATELET COUNT 223 K/MM3 (134-434); WHITE BLOOD COUNT 7.4 K/mm3 (4.0-10.0)
--- NOTE | 2017-03-17 10:16 | CONSULT ---
Consult Consult Specialty:: general surgery Referred by:: do morocho Reason for Consultation:: draining umbilical wound - History of Present Illness Chief Complaint: umbilcal wound draining History of Present Illness: 81 yo male PMH Parkinson's, prostate ca, IDDDM, hypertension, hyperlipidemia, CAD with stents, GERD on zantac, presents presenting draining umbilical wound. s/p lap cholecystectomy on 03/11/2017 postoperatively he bumped his belly on the side table in his room. He has been on anticoagulation therapy, but stopped this medication on his own prior to surgery. since discharge he had an incident where voluminous red colored output was seen to soak the couch and multiple bandages. [facility] He was bandaged an released. Last night we were contacted an told that he again had significant blood loss. We met him in the ED to evaluate. 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 Cardio/Vascular: Yes: CAD, HTN, Hyperlipdemia Gastrointestinal: Yes: Constipation Renal/: Yes: BPH, Other Endocrine: Yes: Diabetes Mellitus - Alcohol/Substance Use Hx Alcohol Use: No - Smoking History Smoking history: Former smoker Have you smoked in the past 12 months: No Home Medications - Allergies Allergies/Adverse Reactions: Allergies Allergy/AdvReac Type Severity Reaction Status Date / Time No Known Drug Allergies Allergy Verified 03/17/17 09:22 - Home Medications Home Medications: Ambulatory Orders Gabapentin 300 mg PO TID 07/05/14 Aspirin [ASA -] 81 mg PO DAILY 03/06/16 Carbidopa/Levodopa [Rytary ER 61.25 mg-245 mg Cap] 1 each PO TID 03/06/16 Clopidogrel Bisulfate [Plavix -] 75 mg PO DAILY 03/06/16 Ergocalciferol (Vitamin D2) [Vitamin D2] 2,000 unit PO DAILY 03/06/16 Lisinopril 10 mg PO DAILY 03/06/16 Docusate Sodium [Colace -] 100 mg PO TID tab 01/20/17 Metoprolol Succinate [Toprol XL -] 25 mg PO DAILY #30 tab 01/20/17 [place]-3 Acid Ethyl Esters [Lovaza -] 2 gm PO BID cap 01/20/17 Sitagliptin Phosphate [Januvia -] 50 mg PO DAILY@0700 #30 tablet 01/20/17 Tamsulosin HCl [Flomax -] 0.4 mg PO DAILY@0830 #30 tab 01/20/17 Ezetimibe [Zetia] 10 mg PO DAILY 03/08/17 Insulin Aspart [Novolog Flexpen] 0 unit SQ TID PRN 03/08/17 Insulin Glargine,Hum.rec.anlog [Lantus (10mL VIAL) -] 35 units SQ HS 03/08/17 Mirabegron [Myrbetriq] 50 mg PO DAILY 03/08/17 Ranitidine [Zantac -] 150 mg PO BID 03/08/17 Acetaminophen [Tylenol .Regular Strength -] 650 mg PO Q6H PRN tablet 03/13/17 Review of Systems - Review of Systems Constitutional: reports: No Symptoms. denies: Chills, Fever Eyes: reports: No Symptoms. denies: Blurred Vision, Recent Change in Vision HENT: denies: No Symptoms Neck: reports: No Symptoms, Lumps, Swollen Glands Cardiovascular: reports: No Symptoms. denies: Chest Pain, Palpitations Respiratory: reports: No Symptoms. denies: Cough, SOB Gastrointestinal: reports: No Symptoms. denies: Abdominal Pain, Constipation, Diarrhea Genitourinary: reports: No Symptoms Musculoskeletal: denies: Back Pain, Muscle Cramps, Muscle Weakness Neurological: reports: No Symptoms. denies: Change in LOC, Headache Endocrine: reports: No Symptoms. denies: Unexplained Weight Gain, Unexplained Weight Loss Psychiatric: denies: Anxiety, Depression Pain Intensity: 1 Physical Exam Vital Signs: Vital Signs Temperature 98.4 F 03/17/17 09:17 Pulse Rate 91 H 03/17/17 09:17 Respiratory Rate 18 03/17/17 09:17 Blood Pressure 144/77 03/17/17 09:17 O2 Sat by Pulse Oximetry (%) 99 03/17/17 09:17 Constitutional: Yes: No Distress, Calm, Obese Eyes: Yes: Conjunctiva Clear, EOM Intact HENT: Yes: Atraumatic, Normocephalic Neck: Yes: Supple, Trachea Midline Cardiovascular: Yes: Regular Rate and Rhythm, S1, S2 Respiratory: Yes: Regular, CTA Bilaterally Gastrointestinal: Yes: Normal Bowel Sounds, Soft, Other (healing incision, umbilical site small opening) ...Rectal Exam: Yes: Deferred Renal/: No: CVA Tenderness - Left, CVA Tenderness - Right Musculoskeletal: No: Muscle Pain, Muscle Weakness Extremities: No: Cool, Cyanosis Edema: No Peripheral Pulses WNL: Yes Integumentary: No: Body Piercing, Tattoos Wound/Incision: Yes: Clean/Dry, Well Approximated (upper abdominal incisions are well healed.), Open to air, Unapproximated (Most superior aspect of umbilical insicon is open 0.1X0.2cm no active bleeing noticed) Neurological: Yes: Oriented Psychiatric: Yes: Alert, Oriented Labs: CBC, BMP 03/17/17 09:53 Problem List - Problems (1) Wound dehiscence, surgical Assessment/Plan: 81 yo male MMP s/p Lap cholecystectomy with small wound dehissance with leakage of ascites (likely no blood loss) Stat CBC, no sign of infection and normal H&H bedside cleaning and closure of the wound Advised to restart anticoagulant therapy F/u as schedule in surgery clinic Code(s): T81.31XA - DISRUPTION OF EXTERNAL OPERATION (SURGICAL) WOUND, NEC, INIT Qualifiers: Encounter type: initial encounter Qualified Code(s): T81.31XA - Disruption of external operation (surgical) wound, not elsewhere classified, initial encounter (2) JOSSELYN (acute kidney injury) Code(s): N17.9 - ACUTE KIDNEY FAILURE, UNSPECIFIED (3) CAD (coronary artery disease) Code(s): I25.10 - ATHSCL HEART DISEASE OF [place] CORONARY ARTERY W/O ANG PCTRS (4) Chronic liver disease and cirrhosis Code(s): K74.60 - UNSPECIFIED CIRRHOSIS OF LIVER; K76.9 - LIVER DISEASE, UNSPECIFIED (5) Diabetes mellitus, insulin dependent (IDDM), uncontrolled Code(s): E10.65 - TYPE 1 DIABETES MELLITUS WITH HYPERGLYCEMIA Qualifiers: Chronic kidney disease stage: unspecified stage
--- NOTE | 2017-03-17 14:42 | OP ---
DATE OF OPERATION: 03/17/2017 PREOPERATIVE DIAGNOSIS: Umbilical incision dehiscence. POSTOPERATIVE DIAGNOSIS: Umbilical incision dehiscence. PROCEDURE: Cleaning and superficial skin closure, 0.2 x 0.1-cm dehiscence of the skin. ATTENDING SURGEON: Bebo Senior MD FOIL OPERATOR: No one. ANESTHESIA: Local anesthetic, local consisting of 1% lidocaine plain, a total of 5 mL in a bolus was given. ESTIMATED BLOOD LOSS: None/scant. INDICATION: The patient is an 81-year-old male, status post laparoscopic cholecystectomy, presented to the emergency room for what was described as a large amount of blood loss from the umbilical incision. He had a previous presentation to the emergency department in [place]. He was bandaged and sent home. He did report bumping his belly against a side table, and since then having some bloody effluent opening of the wound. He was counseled regarding the fact that this is likely just a leakage of ascites. CBC was sent, which revealed a normal cell count. He was then discussed the risks, benefits, and alternatives for skin closure, including infection and scar. He was then taken for the procedure. PROCEDURE: The patient was brought to the bed under fast-track. He was in supine position semi-recumbent. The area was prepped and draped in standard surgical fashion, blocking the umbilical incision. After the biofilm was cleared, the Betadine had dried, we proceeded then with placement of 2 [id number] nylon stitches, size 2-0, across the field to ablate what was a small 0.1 x 0.2 cm defect at the superior aspect of the subcutaneous closure. There was no active bleeding noted. The 2 [id number] were able to ablate the skin easily. The patient was then cleaned and a sterile pressure dressing was placed. He tolerated procedure well. He was given the instruction to restart his anticoagulation therapy and follow up as scheduled. MD YOLI Akhtar/[id number]
== END 2017-03-17 10:30 | disposition home or self-care (01) ==
LOC: JER 09:16 → JERFT 09:16
PROC: 0HQ7XZZ Repair Abdomen Skin, External Approach (ICD-10-PCS; principal; 2017-03-17)
DX: Y83.8 Other surgical procedures as the cause of abnormal reaction of the patient, or of later complication, without mention of misadventure at the time of the procedure (principal); E11.9 Type 2 diabetes mellitus without complications; I10 Essential (primary) hypertension; E78.00 Pure hypercholesterolemia, unspecified
CPT/HCPCS: 12001; 36415; 85025; 99281-25